=== PATIENT | female | born 1935 | race Caucasian/White ===

== ENCOUNTER 2016-10-17 11:29 | Inpatient (IN) | payer MEDICARE ==
[2016-10-17] VITALS (11 sets, daily range): BP systolic 102–131; BP diastolic 64–84
[~2016-10-17] VITALS: Ht 170.2 cm; Wt 78.6 kg
--- NOTE | ~2016-10-17 | PR ---
[place], [place] PROGRESS NOTE NAME: BERTHA MEJIA UNIT #: [id number] ROOM: 421 DOCTOR: JIMMY SCHAEFFER MD BIRTHDATE: [birth year] DOS: SUBJECTIVE: Ms. Mejia is sitting up in a chair, does not appear in distress. No cardiac complaint. No chest pain, no chest pressure, no symptomatic palpitation. The patient is requesting to go home. OBJECTIVE: VITAL SIGNS: Blood pressure 122/56, heart rate 56, respiratory rate of 18, temperature 98.6. NECK: Good upstroke, no bruit. HEART: S1, S2 with no rub. LUNGS: Increased air movement, but clear to auscultation. EXTREMITIES: Lower extremities, there is no edema, both under KILEY hose. LABORATORY DATA: White count 9.0, hemoglobin 13.2, potassium 4.0. GFR 34%. ASSESSMENT AND PLAN: History of presentation with atrial fibrillation with rapid ventricular response. The patient has history of diastolic congestive heart failure. The patient was cardioverted by Dr. Mcgarry and placed on amiodarone to maintain normal sinus rhythm in view of the slight drop in ejection fraction, which was likely due to tachycardia-induced myopathy. Currently, the patient appeared to be completely asymptomatic. Heart rate is in acceptable range. For that, we will continue same medication. The patient can be discharged home this afternoon. Continue Xarelto for oral anticoagulation. The patient should be seen in our clinic here in [place] within a few weeks with Dr. Mcgarry. JIMMY SCHAEFFER MD CM:PNTRANS [id number] JIMMY SCHAEFFER MD 10/24/16 1133 interface
[~2016-10-17 11:29] MED LIST: ALDACTONE25 MG PO; ALLOPURINOL100 MG PO; ASPIRIN1 POW; ASPIRIN325 M2 PO; CARVEDILOL25 MG PO; CENTRUM MULTIV1 EACH PO; CLINDAMYCIN HCL PO; DIGOX0.125 MG PO; DILTIAZEM HYDR180 M2 PO; FISH OIL500 M2 PO; FUROSEMIDE20 MG PO; K-Dur 20MEQ20 MEQ PO; K-LOR 20MEQ20 ME1 PO; LASIX20 MG PO; LEVOTHYROXINE0.05 M1 PO; METFORMIN HCL500 MG PO; METOPROLOL SUCC25 M2 PO; NOVOLOG10 ML IV; NOVOLOG10 ML SQ; POTASSIUM CHLO20 ME4 PO; PRINIVIL5 M1 PO; SIMVASTATIN40 MG PO; SUPER EPA 2002000 MG PO; TOUJEO300 U/ML SC; VENTOLIN H0.09 MG/AC INH; XANAX0.25 MG PO; XARE15TA PO
[2016-10-17] MEDS ORDERED: LOPRESSOR50 M1 PO (11:39)
[2016-10-17] MEDS ORDERED: DIGOX0.125 MG PO (11:39)
[2016-10-17 12:18] LABS: BASO # 0.1 10*3/uL (0.0-0.1); BASO % 0.4 % (0.0-1.0); EOS % 0.2 % (1.0-4.0); HEMATOCRIT 44.2 % (37.0-47.0); HEMOGLOBIN 14.1 g/dl (12.0-16.0); LYMPH # 2.1 10*3/uL (1.3-4.4); LYMPH % 18.2 % (27.0-41.0); MEAN CELL VOLUME 97.4 fl (81.0-99.0); MEAN CORPUSCULAR HGB 31.1 pg (27.0-31.0); MEAN CORPUSCULAR HGB CONC 31.9 g/dl (33.0-37.0); MEAN PLATELET VOLUME 11.8 fl (9.6-12.3); MONO # 1.4 10*3/uL (0.1-1.0); MONO % 12.7 % (3.0-9.0); NEUT # 7.8 10*3/uL (2.3-7.9); NEUT % 68.1 % (47.0-73.0); PLATELET COUNT AUTOMATED 221 10*3/uL (130-400); RED BLOOD COUNT 4.54 10*6/uL (4.10-5.10); WHITE BLOOD COUNT 11.4 10*3/uL (4.8-10.8)
[2016-10-17 12:29] LABS: INTERNATIONAL NORM RATIO 1.4 (2.0-3.5); PROTHROMBIN TIME 14.9 SECONDS (9.0-12.4)
[2016-10-17 12:38] LABS: ALBUMIN 3.2 gm/dl (3.1-4.5); BILIRUBIN, TOTAL 1.1 mg/dl (0.2-1.0); POTASSIUM 4.6 mmol/L (3.5-5.1); TOTAL PROTEIN 7.2 gm/dL (6.4-8.2)
[2016-10-17 12:40] LABS: CKMB 3.6 ng/ml (0.5-3.6)
[2016-10-17 12:43] LABS: TROPONIN I 0.122 ng/ml (<0.045)
[2016-10-17 14:15] LABS: LA>2 REFLEX 2 HR DRAW NOW
[2016-10-18] VITALS (9 sets, daily range): BP systolic 102–122; BP diastolic 49–78
[2016-10-18 05:53] LABS: BASO % 0.1 % (0.0-1.0); HEMATOCRIT 40.6 % (37.0-47.0); LYMPH # 0.6 10*3/uL (1.3-4.4); LYMPH % 7.9 % (27.0-41.0); MEAN CELL VOLUME 99.3 fl (81.0-99.0); MEAN CORPUSCULAR HGB 31.8 pg (27.0-31.0); MEAN PLATELET VOLUME 12.3 fl (9.6-12.3); MONO # 0.3 10*3/uL (0.1-1.0); MONO % 3.4 % (3.0-9.0); NEUT # 7.1 10*3/uL (2.3-7.9); NEUT % 88.2 % (47.0-73.0); PLATELET COUNT AUTOMATED 196 10*3/uL (130-400); RED BLOOD COUNT 4.09 10*6/uL (4.10-5.10); RED CELL DISTRI WIDTH 13.9 % (0-14.5)
[2016-10-18 06:07] LABS: ALBUMIN 2.6 gm/dl (3.1-4.5); BILIRUBIN, TOTAL 1.1 mg/dl (0.2-1.0); FREE T4 1.23 ng/dl (0.76-1.46); PHOSPHOROUS 3.4 mg/dL (2.5-4.9); POTASSIUM 4.7 mmol/L (3.5-5.1); TOTAL PROTEIN 6.3 gm/dL (6.4-8.2)
[2016-10-18 06:11] LABS: THYROID STIM HORMONE (HS) 1.13 uIU/ml (0.358-4.75)
[2016-10-18 06:16] LABS: INTERNATIONAL NORM RATIO 1.3 (2.0-3.5); PROTHROMBIN TIME 14.5 SECONDS (9.0-12.4)
[2016-10-19] VITALS: BP 120/74
[2016-10-19 06:38] LABS: BASO % 0.1 % (0.0-1.0); HEMATOCRIT 45.7 % (37.0-47.0); HEMOGLOBIN 14.6 g/dl (12.0-16.0); IG # 0.1 10*3/uL (0.0-0.1); LYMPH # 0.9 10*3/uL (1.3-4.4); LYMPH % 5.9 % (27.0-41.0); MEAN CELL VOLUME 98.7 fl (81.0-99.0); MEAN CORPUSCULAR HGB 31.5 pg (27.0-31.0); MEAN CORPUSCULAR HGB CONC 31.9 g/dl (33.0-37.0); MEAN PLATELET VOLUME 12.1 fl (9.6-12.3); MONO # 0.7 10*3/uL (0.1-1.0); MONO % 4.4 % (3.0-9.0); NEUT # 13.2 10*3/uL (2.3-7.9); NEUT % 88.9 % (47.0-73.0); PLATELET COUNT AUTOMATED 213 10*3/uL (130-400); RED BLOOD COUNT 4.63 10*6/uL (4.10-5.10); RED CELL DISTRI WIDTH 14.3 % (0-14.5); WHITE BLOOD COUNT 14.9 10*3/uL (4.8-10.8)
[2016-10-19 07:15] LABS: POTASSIUM 4.2 mmol/L (3.5-5.1)
[2016-10-19 07:29] LABS: DIGOXIN 1.34 ng/ml (0.8-2.0)
[2016-10-19 08:00] VITALS: BP 126/68
[2016-10-19 12:00] VITALS: BP 108/71
[2016-10-19 16:00] VITALS: BP 99/66
[2016-10-19 20:00] VITALS: BP 90/65
[2016-10-20] VITALS (9 sets, daily range): BP systolic 88–150; BP diastolic 46–94
[2016-10-21] VITALS: BP 114/59
[2016-10-21 06:26] LABS: BASO % 0.1 % (0.0-1.0); HEMATOCRIT 43.7 % (37.0-47.0); HEMOGLOBIN 14.1 g/dl (12.0-16.0); IG # 0.1 10*3/uL (0.0-0.1); LYMPH # 0.8 10*3/uL (1.3-4.4); LYMPH % 7.4 % (27.0-41.0); MEAN CORPUSCULAR HGB 31.6 pg (27.0-31.0); MEAN CORPUSCULAR HGB CONC 32.3 g/dl (33.0-37.0); MEAN PLATELET VOLUME 12.4 fl (9.6-12.3); MONO # 0.7 10*3/uL (0.1-1.0); MONO % 6.6 % (3.0-9.0); NEUT # 9.3 10*3/uL (2.3-7.9); NEUT % 85.4 % (47.0-73.0); PLATELET COUNT AUTOMATED 255 10*3/uL (130-400); RED BLOOD COUNT 4.46 10*6/uL (4.10-5.10); RED CELL DISTRI WIDTH 14.5 % (0-14.5); WHITE BLOOD COUNT 10.9 10*3/uL (4.8-10.8)
[2016-10-21 06:53] LABS: POTASSIUM 4.6 mmol/L (3.5-5.1)
[2016-10-21 06:59] LABS: THYROID STIM HORMONE (HS) 1.16 uIU/ml (0.358-4.75)
[2016-10-21 08:00] VITALS: BP 119/50
[2016-10-21 12:00] VITALS: BP 122/62
[2016-10-21 16:00] VITALS: BP 102/42
[2016-10-21 20:00] VITALS: BP 120/65
[2016-10-22] VITALS: BP 135/60
[2016-10-22 07:13] LABS: HEMATOCRIT 43.3 % (37.0-47.0); HEMOGLOBIN 13.9 g/dl (12.0-16.0); LYMPH # 0.9 10*3/uL (1.3-4.4); LYMPH % 6.9 % (27.0-41.0); MEAN CELL VOLUME 97.1 fl (81.0-99.0); MEAN CORPUSCULAR HGB 31.2 pg (27.0-31.0); MEAN CORPUSCULAR HGB CONC 32.1 g/dl (33.0-37.0); MEAN PLATELET VOLUME 11.5 fl (9.6-12.3); MONO # 1.4 10*3/uL (0.1-1.0); MONO % 10.8 % (3.0-9.0); NEUT # 10.3 10*3/uL (2.3-7.9); PLATELET COUNT AUTOMATED 257 10*3/uL (130-400); RED BLOOD COUNT 4.46 10*6/uL (4.10-5.10); RED CELL DISTRI WIDTH 14.2 % (0-14.5); WHITE BLOOD COUNT 12.5 10*3/uL (4.8-10.8)
[2016-10-22 07:42] LABS: MAGNESIUM 2.8 mg/dL (1.5-2.1); PHOSPHOROUS 4.5 mg/dL (2.5-4.9); POTASSIUM 4.5 mmol/L (3.5-5.1)
[2016-10-22 08:00] VITALS: BP 111/40
[2016-10-22 12:00] VITALS: BP 117/52
[2016-10-22 16:00] VITALS: BP 118/43
[2016-10-22 20:00] VITALS: BP 120/60
[2016-10-23] VITALS: BP 122/67
[2016-10-23 04:00] VITALS: BP 107/68
[2016-10-23 05:53] LABS: HEMATOCRIT 44.8 % (37.0-47.0); HEMOGLOBIN 14.3 g/dl (12.0-16.0); MEAN CELL VOLUME 98.5 fl (81.0-99.0); MEAN CORPUSCULAR HGB 31.4 pg (27.0-31.0); MEAN CORPUSCULAR HGB CONC 31.9 g/dl (33.0-37.0); MEAN PLATELET VOLUME 11.7 fl (9.6-12.3); PLATELET COUNT AUTOMATED 242 10*3/uL (130-400); RED BLOOD COUNT 4.55 10*6/uL (4.10-5.10); RED CELL DISTRI WIDTH 14.3 % (0-14.5); WHITE BLOOD COUNT 12.8 10*3/uL (4.8-10.8)
[2016-10-23 05:57] LABS: POTASSIUM 4.3 mmol/L (3.5-5.1)
[2016-10-23 06:00] LABS: INTERNATIONAL NORM RATIO 1.4 (2.0-3.5); PROTHROMBIN TIME 14.6 SECONDS (9.0-12.4)
[2016-10-23 06:55] LABS: EOSINOPHIL # 0.1 10*3/uL (0-0.4); EOSINOPHILS 1 % (1-4); LYMPHOCYTE # 2.3 10*3/uL (1.3-4.4); MONOCYTE # 0.9 10*3/uL (0.1-1.0); NEUTROPHIL # 9.5 10*3/uL (2.3-7.9); NEUTROPHILS 74 % (47-73); PLATELET SUFFICIENCY NORMAL (NORMAL); TOTAL CELLS COUNTED 100 #CELLS
[2016-10-23 08:00] VITALS: BP 117/57
[2016-10-23 12:00] VITALS: BP 124/52
[2016-10-23 16:00] VITALS: BP 118/58
[2016-10-23 20:00] VITALS: BP 100/65
[2016-10-24] VITALS: BP 118/47
[2016-10-24 06:15] LABS: BASO % 0.2 % (0.0-1.0); EOS # 0.2 10*3/uL (0.0-0.4); EOS % 2.3 % (1.0-4.0); HEMATOCRIT 39.8 % (37.0-47.0); HEMOGLOBIN 13.2 g/dl (12.0-16.0); LYMPH % 22.1 % (27.0-41.0); MEAN CELL VOLUME 96.4 fl (81.0-99.0); MEAN CORPUSCULAR HGB CONC 33.2 g/dl (33.0-37.0); MEAN PLATELET VOLUME 11.4 fl (9.6-12.3); MONO # 1.2 10*3/uL (0.1-1.0); MONO % 13.8 % (3.0-9.0); NEUT # 5.5 10*3/uL (2.3-7.9); NEUT % 61.3 % (47.0-73.0); PLATELET COUNT AUTOMATED 207 10*3/uL (130-400); RED BLOOD COUNT 4.13 10*6/uL (4.10-5.10); RED CELL DISTRI WIDTH 14.1 % (0-14.5)
[2016-10-24 08:00] VITALS: BP 122/56
[2016-10-24 12:00] VITALS: BP 132/62
[2016-10-24] MEDS ORDERED: SIMVASTATIN20 MG PO (12:41)
[2016-10-24] MEDS ORDERED: PACERONE200 MG PO (12:41)
== END 2016-10-24 14:42 | disposition home or self-care (01) | DRG 291 ==
LOC: ED 11:29 → EDHOLD 14:03 → 4E 14:03 → EDHOLD 14:27 → ICCU 14:32 → 4E 10-18 13:44
PROVIDERS: Family Medicine; Internal Medicine; Internal Medicine Cardiovascular Disease; Student in an Organized Health Care Education/Training Program
PROC: 5A2204Z Restoration of Cardiac Rhythm, Single (ICD-10-PCS; principal; 2016-10-20)
PROC: 5A09357 Assistance with Respiratory Ventilation, Less than 24 Consecutive Hours, Continuous Positive Airway Pressure (ICD-10-PCS; 2016-10-22)
DX: I13.0 Hypertensive heart and chronic kidney disease with heart failure and stage 1 through stage 4 chronic kidney disease, or unspecified chronic kidney disease (principal); J15.6 Pneumonia due to other Gram-negative bacteria; N17.0 Acute kidney failure with tubular necrosis; E43 Unspecified severe protein-calorie malnutrition; I48.0 Paroxysmal atrial fibrillation; J44.0 Chronic obstructive pulmonary disease with (acute) lower respiratory infection; E11.65 Type 2 diabetes mellitus with hyperglycemia; E11.51 Type 2 diabetes mellitus with diabetic peripheral angiopathy without gangrene; I50.43 Acute on chronic combined systolic (congestive) and diastolic (congestive) heart failure; N18.3 Chronic kidney disease, stage 3 (moderate); F41.9 Anxiety disorder, unspecified; M19.90 Unspecified osteoarthritis, unspecified site; D72.821 Monocytosis (symptomatic); M10.9 Gout, unspecified; E03.9 Hypothyroidism, unspecified; E78.2 Mixed hyperlipidemia; J44.9 Chronic obstructive pulmonary disease, unspecified; Z68.25 Body mass index [BMI] 25.0-25.9, adult; Z79.4 Long term (current) use of insulin; Z88.1 Allergy status to other antibiotic agents; Z88.0 Allergy status to penicillin; Z88.2 Allergy status to sulfonamides; Z79.899 Other long term (current) drug therapy; Z87.440 Personal history of urinary (tract) infections; Z87.891 Personal history of nicotine dependence; Z82.49 Family history of ischemic heart disease and other diseases of the circulatory system

== ENCOUNTER 2018-03-04 14:41 | Inpatient (IN) | payer OTHER, MEDICARE ==
[2018-03-04] VITALS (7 sets, daily range): BP systolic 99–136; BP diastolic 30–113
[~2018-03-04] VITALS: Ht 170.1 cm; Wt 90.0 kg
--- NOTE | ~2018-03-04 | EKG ---
[place], [place] ELECTROCARDIOGRAM REPORT NAME: BERTHA MEJIA UNIT #: [id number] ROOM: [facility] DOCTOR: AMALIA DRAFT REPORT BIRTHDATE: [birth year] [facility] Test Date: 2018-03-04 Test Time: 14:59:14 Pat Name: BERTHA MEJIA Department: Room: [facility] Gender: F [employer] Consultant: ROYAL : 1935 Requested By: JOAN SNOW Order Number: [id number] Reading MD: Tai Mcgarry MD Measurements Intervals [place] Rate: 38 P: MS: QRS: -74 QRSD: 156 T: 122 QT: 585 QTc: 466 Interpretive Statements Junctional rhythm LBBB Compared to ECG 11/06/2017 13:32:41 Junctional rhythm now present Sinus rhythm no longer present Electronically Signed On 03-04-2018 19:50:20 PST by Tai Mcgarry MD CM:EKGRPT:ELECTROCARDIOGRAM REPORT 1459 1950 JOAN TRIMBLE DRAFT REPORT JOAN SNOW DO
--- NOTE | ~2018-03-04 | PR ---
[place], [place] PROGRESS NOTE NAME: BERTHA MEJIA UNIT #: [id number] ROOM: 506 DOCTOR: MILAGRO DOMINGUEZ MD BIRTHDATE: [birth year] DOS: 03/06/2018 SUBJECTIVE: The patient was seen at her bedside today, 03/06/2018, for followup of her acute renal insufficiency and bradycardia. She is feeling better today. Her heart rate is now around 60. Renal functions have improved and she denies any lightheadedness, nausea or weakness. PHYSICAL EXAMINATION: VITAL SIGNS: Her pulse is 60 and regular, blood pressure is 94/48. She is afebrile. NECK: Supple. She has no jugular distention or hepatojugular reflux. Carotids are full. LUNGS: Respirations are unlabored. Her chest is clear. HEART: Has a regular rhythm. She has an S4 gallop. ABDOMEN: Soft and normally active. EXTREMITIES: Showed no edema. LABORATORY DATA: Hemoglobin is 11.9, white count 8300, platelet count 192,000. Sodium is 143, potassium 4.7, BUN 60, creatinine 1.91. Please note that on admission her BUN was 91 and creatinine was 3.77. IMPRESSION: 1. Acute renal failure with hyperkalemia, most likely due to multiple medications including lisinopril, spironolactone and torsemide. 2. Hyperkalemia -- resolved. 3. History of nonischemic cardiomyopathy. 4. Paroxysmal atrial fibrillation. The patient currently is in sinus rhythm. 5. History of hypertension. 6. History of hyperlipidemia. PLAN: I agree with moving her out of the intensive care unit and increasing her activities. I would continue to withhold digoxin, spironolactone and lisinopril. if needed for blood pressure, we could use hydralazine and nitrates. Now we will continue to monitor in the hospital and I thank the hospitalist physicians for asking our advice regarding her care. [place], [place] PROGRESS NOTE NAME: BERTHA MEJIA UNIT #: [id number] ROOM: 506 DOCTOR: MILAGRO DOMINGUEZ MD BIRTHDATE: [birth year] MILAGRO DOMINGUEZ MD CM:PNTRANS [id number] MILAGRO DOMINGUEZ MD 03/06/18 1902 interface
--- NOTE | ~2018-03-04 | CON ---
[place], [place] REPORT OF CONSULTATION NAME: BERTHA MEJIA UNIT #: [id number] ROOM: [facility] DOCTOR: MILAGRO DOMINGUEZ MD BIRTHDATE: [birth year] DOS: 03/05/2018 REASON FOR CONSULTATION: Weakness, bradycardia, and acute renal failure. HISTORY OF PRESENT ILLNESS: The patient is an 82-year-old woman who does have multiple medical problems including a nonischemic cardiomyopathy. Her most recent echocardiogram on 11/08/2017 showed normal left ventricular size with global hypokinesis, moderate concentric left ventricular hypertrophy and ejection fraction between 35 and 40% with stage 2 diastolic relaxation abnormalities. She does have a chronic left bundle-branch block, essential hypertension, paroxysmal atrial fibrillation, and obstructive sleep apnea. She has a difficult time tolerating CPAP. Cardiac catheterization 09/23/2015 showed no coronary artery disease with an ejection fraction of 40%. She was seen yesterday by ____, his normal director it project who noted that she was dyspneic and weak. He recommended that she try to see a photoradio operator to help her with her obstructive sleep apnea. At the office of the photoradio operator, she fell in the bathroom and was sent to the Emergency Room. In the Emergency Room, her potassium was 6.8 with a pulse in the 30s and creatinine of 3.77. She was therefore admitted for further management. Since admission, her potassium has been treated and she has been given fluids. She does feel much better. Her heart rate has increased and is currently about 80. Her BUN and creatinine have fallen to 80 and 2.81 from admission values of 91 and 3.77. Potassium is now 4.8. PAST MEDICAL HISTORY: Includes: 1. Chronic obstructive pulmonary disease. 2. Obstructive sleep apnea. 3. Essential hypertension. 4. Left bundle branch block. 5. Paroxysmal atrial fibrillation. 6. Dilated nonischemic cardiomyopathy. 7. Cardiac catheterization 09/23/2015, normal left main, LAD, circumflex, and right coronary arteries. Ejection fraction of 40%. 8. Echocardiogram 11/08/2017, normal left ventricular size with global hypokinesis, ejection fraction 35-40%, stage 2 diastolic dysfunction. Left atrium severely dilated. Mitral annular calcification with trivial mitral insufficiency. Tricuspid insufficiency, moderate in degree with right ventricular systolic pressure greater than 60 mmHg indicating severe pulmonary hypertension. 9. Type 2 diabetes mellitus. 10. History of tonsillectomy, hernia repair, and partial pneumonectomy. MEDICATIONS: Prior to admission, Ipratropium bromide 2 sprays q. 12 hours, allopurinol 100 mg daily, amiodarone 200 mg b.i.d., digoxin 125 mcg daily, levothyroxine 25 mcg daily, lisinopril 5 mg daily, metoprolol 25 mg daily, multivitamin daily, omega 3 fatty acids 1000 mg b.i.d., potassium 20 mEq daily, rivaroxaban 15 mg with her evening meal, simvastatin 20 mg at bedtime, spironolactone 25 mg daily, torsemide 20 mg daily, insulin per sliding scale and glargine insulin 25 units subcutaneously daily. [place], [place] REPORT OF CONSULTATION NAME: BERTHA MEJIA UNIT #: [id number] ROOM: [facility] DOCTOR: MILAGRO DOMINGUEZ MD BIRTHDATE: [birth year] ALLERGIES: THE PATIENT LISTS ALLERGIES TO PENICILLIN, SULFA, AND ERYTHROMYCIN. REVIEW OF SYSTEMS: The patient denies diplopia or loss of vision. She states that she has been generally weak for a few weeks. She denies nausea or vomiting. She denies fevers, chills or sweats. She denies orthopnea or PND. She does feel generally weak, but denies syncope. She denies focal weakness. She denies hemoptysis or hematemesis. She denies blood in her stools or urine. She denies peripheral edema. She denies heat or cold intolerance. She denies polyuria or polydipsia. She denies any skin rashes. Remainder of the review of systems is negative except as noted above. SOCIAL HISTORY: The patient was a smoker, but quit some time ago. She does not consume alcohol or illicit drugs. FAMILY HISTORY: Her parents both in their 90s from heart disease. PHYSICAL EXAMINATION: GENERAL: The patient is an elderly white female who is awake, alert, and oriented. VITAL SIGNS: Pulse is 80 and regular, blood pressure is 100/46. She is afebrile. HEENT: Normocephalic, atraumatic. Extraocular muscles are intact. Sclerae are clear. Pupils equal, round and reactive to light. The oral mucosa is moist. Tongue is midline. NECK: Supple. She has no jugular distention. Carotids are full. There are no bruits. She has no neck or supraclavicular masses, no thyromegaly. LUNGS: Respirations are unlabored. Her chest has decreased breath sounds at the bases, but is otherwise clear. She had no wheezes or rales. She had no presacral edema or chest wall tenderness. CARDIOVASCULAR: Her heart had a regular rhythm. She had a soft S4 gallop, but no S3. The PMI was not displaced. There is no precordial heave, lift or thrill. ABDOMEN: Soft and normally active without masses, organomegaly, or bruits. EXTREMITIES: Showed no edema. Peripheral pulses are diminished, but palpable in the feet. LABORATORY DATA: Her electrocardiogram showed a left bundle branch block. On admission, she did have marked sinus bradycardia with junctional escape. She now appears to be in a sinus rhythm. IMPRESSION: 1. Acute renal failure with hyperkalemia, most likely due to multiple medications including lisinopril, spironolactone, and torsemide. 2. Hyperkalemia. 3. History of nonischemic cardiomyopathy. 4. Paroxysmal atrial fibrillation, currently in sinus rhythm. 5. History of hypertension. 6. History of hyperlipidemia. [place], [place] REPORT OF CONSULTATION NAME: BERTHA MEJIA UNIT #: [id number] ROOM: [facility] DOCTOR: MILAGRO DOMINGUEZ MD BIRTHDATE: [birth year] PLAN: I would resume her amiodarone, but in a smaller dose. Discontinue digoxin, discontinue spironolactone or lisinopril, and use hydralazine and nitrates as needed for her left ventricular dysfunction. We will continue to monitor her in the hospital. I thank the hospitalist physicians for asking our advice regarding her care. MILAGRO DOMINGUEZ MD CM:CONSTR:REPORT OF CONSULTATION 1429 03/05/18 2137 interface
--- NOTE | ~2018-03-04 | CON ---
[place], [place] REPORT OF CONSULTATION NAME: BERTHA MEJIA UNIT #: [id number] ROOM: 506 DOCTOR: CONRAD ZUNIGA DO BIRTHDATE: [birth year] DOS: 03/06/2018 REASON FOR CONSULTATION: Acute kidney injury, hyperkalemia, chronic kidney disease. HISTORY OF PRESENT ILLNESS: A pleasant 82-year-old female who carries a prior history of nonischemic cardiomyopathy with a past echocardiogram on 11/2017 showing moderate concentric LVH with an EF of 40%, stage 2 diastolic dysfunction. She has a chronic left bundle-branch block as well, history of paroxysmal atrial fibrillation, obstructive sleep apnea, hypertension, COPD, type 2 diabetes mellitus of only three years' duration with no reported complication that being neuropathy. She has what appears to be underlying chronic kidney disease that she is unaware of this diagnosis. Reviewing labs, I note multiple creatinines in the 1.8 to 2.0 range for the past year with a creatinine of ____ range, extending back to 2015. I do not see where she has undergone any previous evaluation for underlying CKD, but past urines have been generally bland. She did undergo a renal ultrasound during this admission, which showed symmetric kidneys of the right measuring 9.1 with measuring 9.0 cm in size for hydronephrosis or masses appreciated. A spot urine for protein and creatinine was obtained during this admission with a value of 0.14 obtained. She notes her diabetes has been generally under good control as her hypertension. She denies exposure to any past NSAIDs. She initially presented institution on 03/04/2018 with weakness. She had been feeling "oozy" and lightheaded for several days. She is at the physician's office when she apparently fell to the side of the toilet and was unable to get up. She denied any cardiac symptoms in conjunction with the above. She generally has been feeling well other than her period above. No complaints since admission. No associated cardiac symptoms leading into remission or URI symptoms. No fevers, chills, rigors or diaphoresis. No anorexia, nausea, vomiting or diarrhea. States she has been voiding well and at baseline, but not she is frequently incontinent of urine. In the Emergency Room, she was noted to be bradycardic, heart rate in the 40s-50s. Stable and afebrile, otherwise. Noted to be hyperkalemic with a potassium of 6.8. Specimen was not hemolyzed. She was in acute kidney injury with a BUN and creatinine of 91 and 3.77. Chemistries on admission were otherwise unremarkable. Since admission, her most recent creatinine was from 11/15/2017 was 2.40 and 1.80 on 11/11/2017. She was given D50 and insulin along with Kayexalate in the Emergency Room and started on IV fluids, admitted to the ICU. Subsequent potassium was noted to be 6.0. Easing of the 30th at this time she has continued her IV fluids and is given additional dose of D50 and insulin. Follow up potassiums have steadily improved to 5.0 yesterday morning, repeat of 4.8 several hours later yesterday morning and then 4.7 as of today. Her renal function has shown steady improvement with a creatinine down to 1.91 as of today. Chemistries are otherwise all remained unremarkable. Since being admitted, she has been afebrile and overall hemodynamically stable. States she is feeling well. She notes that she has been maintaining a longstanding and stable dose of lisinopril. She apparently has been on a longstanding and stable dose of spironolactone 25 mg daily and has been taking the appearance of both torsemide 20 mg daily and furosemide 20 mg daily. This cannot be inadvertently confirmed, but she acknowledged using both of these medications. She has also been on a potassium supplement 10 mEq daily. [place], [place] REPORT OF CONSULTATION NAME: BERTHA MEJIA UNIT #: [id number] ROOM: 506 DOCTOR: CONRAD ZUNIGA DO BIRTHDATE: [birth year] She notes compliance with all of her medications that she has been taking all these as prescribed in a longstanding duration. She denies any changes in her baseline. MEDICATIONS: Denies use of NSAIDs and otherwise not been exposed to any potential nephrotoxic agents. She denies hematuria or frothy urine, symptoms of colic or passage of calculi, cough, hemoptysis, wheezing, abdominal pain, hematochezia or melena symptoms. PAST MEDICAL HISTORY: As above. ALLERGIES: Listed PENICILLIN AND SULFA. CURRENT MEDICATIONS: Amiodarone 200 mg daily, Lantus 25 units subcutaneously daily, Xarelto 50 mg daily, allopurinol 100 mg daily, levothyroxine 25 mcg daily, Zocor 20 mg daily and sliding scale insulin. SOCIAL HISTORY: She resides at home. FAMILY HISTORY: Noncontributory. REVIEW OF SYSTEMS: Please see HPI. A full 10-point review of systems was performed and obtained the above-noted measures, was unremarkable except as noted in HPI. PHYSICAL EXAMINATION: VITAL SIGNS: Blood pressure 135/84, pulse 90, respiration 20 and temperature is 98 degrees Fahrenheit. GENERAL APPEARANCE: An obese female, awake, alert, oriented x 3, no apparent distress. HEAD AND NECK: Conjunctivae are pink and moist. Oral mucosa is pink and moist. There is no carotid bruit or thyromegaly, adenopathy or JVD appreciated. LUNGS: Clear to auscultation and percussion. HEART: Regular without S4, S3 gallop, rub, murmur or heave currently appreciated. ABDOMEN: Soft, positive bowel sounds x 4, nontender, without CVA tenderness. No rebound, guarding or rigidity. No abdominal or flank bruits appreciated. Examination is grossly nonfocal. EXTREMITIES: No clubbing, cyanosis or edema. Pulses are +2 bilateral as dorsalis pedis. SKIN: Dry without rash, ulcers, lesions, or petechiae appreciated. LABORATORY DATA: Labs from today, WBC is 8.3, hemoglobin 10.9, hematocrit 35.0 and platelets are 192,000. Sodium 143, potassium 4.7, chloride 112, CO2 of 21, BUN of 60, creatinine 1.91, glucose of 116 and calcium is 8.1. IMPRESSIONS: 1. Acute kidney injury. This was resolved and is presumably prerenal in nature. I question this may have been due to overuse of diuretics with the patient taking torsemide and furosemide. Now, the pertinent etiology can be [place], [place] REPORT OF CONSULTATION NAME: BERTHA MEJIA UNIT #: [id number] ROOM: 506 DOCTOR: CONRAD ZUNIGA DO BIRTHDATE: [birth year] discovered prior to her hyperkalemia and this is occurring in the setting of acute kidney injury while on potassium supplementation, spironolactone and lisinopril, all of which have been held. 2. Chronic kidney disease with baseline as noted, unclear etiology. 3. Hypertension. Blood pressure is satisfactory control. RECOMMENDATIONS: Agree with current management. Follow intake and output as well as renal function and electrolytes closely. We will check serum free light chains along with SPEP, ____. Consider checking a UIEP. Further plans pending above. Thank you for allowing me to participate in the care of this patient. CONRAD ZUNIGA DO CM:CONSTR:REPORT OF CONSULTATION 11 03/06/18 2259 interface
--- NOTE | ~2018-03-04 | PR ---
[place], [place] PROGRESS NOTE NAME: BERTHA MEJIA UNIT #: [id number] ROOM: 506 DOCTOR: MILAGRO DOMINGUEZ MD BIRTHDATE: [birth year] DOS: 03/07/2018 CARDIOLOGY PROGRESS NOTE SUBJECTIVE: The patient was seen today, 03/07/2018, at her bedside. I also saw her walking in the bhagat. She feels much better and is anxious for discharge to home. PHYSICAL EXAMINATION: VITAL SIGNS: On exam today, her pulse is 56 and regular, blood pressure is 112/54. She is afebrile. NECK: Supple. She has no jugular distention. Carotids are full. LUNGS: Respirations are unlabored. Chest is clear. HEART: Has a regular rhythm with an S4 gallop, but no S3. ABDOMEN: Benign. EXTREMITIES: Showed no edema. LABORATORY DATA: Electrolytes have normalized. Her sodium is 143 with potassium of 4.5. BUN has decreased from 91 on admission to 41 today. Creatinine has decreased from 3.77 to 1.42. Her monitor shows sinus rhythm with a bundle-branch block. She does seem to be doing better since her hospitalization and since the readjustment of her medications. Currently, she is on amiodarone 200 mg daily, rivaroxaban 15 mg daily, allopurinol 100 mg daily, levothyroxine 25 mcg daily, simvastatin 20 mg at bedtime, DuoNeb 4 hours as needed, temazepam 15 mg at bedtime as needed, bisacodyl 10 mg per rectum or 5 mg p.o. daily as needed, acetaminophen as needed and insulin as prescribed. From my perspective, she could be discharged to home at any time. I thank the hospitalist physicians for asking our advice regarding her care. MILAGRO DOMINGUEZ MD CM:PNTRANS 1516 [id number] MILAGRO DOMINGUEZ MD 03/08/18240 interface
[~2018-03-04 14:41] MED LIST changes: +AMIODARONE HYD200 MG PO; +CENTRUM SILVER1 EACH PO; +FISH OIL CONC1000 M1 PO; +LOPRESSOR50 M1 PO; +PACERONE200 MG PO; +POTASSIUM CHLO20 ME3 PO; +SIMVASTATIN20 MG PO; +SYNTHROID25 MCG PO; +TORSEMIDE20 MG PO; +TOUJEO MAX300 UNIT/1 SQ
[2018-03-04 15:11] LABS: HEMATOCRIT 42.4 % (37.0-47.0); HEMOGLOBIN 13.8 g/dl (12.0-16.0); MEAN CELL VOLUME 99.5 fl (81.0-99.0); MEAN CORPUSCULAR HGB 32.4 pg (27.0-31.0); MEAN CORPUSCULAR HGB CONC 32.5 g/dl (33.0-37.0); MEAN PLATELET VOLUME 11.5 fl (9.6-12.3); PLATELET COUNT AUTOMATED 273 10*3/uL (130-400); RED BLOOD COUNT 4.26 10*6/uL (4.10-5.10); RED CELL DISTRI WIDTH 18.2 % (0-14.5); WHITE BLOOD COUNT 10.5 10*3/uL (4.8-10.8)
[2018-03-04 15:21] LABS: ACT PARTIAL THROMBO TIME 22.7 SECONDS (20.8-31.5)
[2018-03-04 15:26] LABS: ALBUMIN 3.3 gm/dl (3.1-4.5); CREATININE 3.77 mg/dL (0.55-1.02); TOTAL PROTEIN 7.2 gm/dL (6.4-8.2)
[2018-03-04 15:29] LABS: POTASSIUM 6.8 mmol/L (3.5-5.1)
[2018-03-04 15:30] LABS: TROPONIN I 0.064 ng/ml (<0.045)
[2018-03-04 15:36] LABS: PLATELET SUFFICIENCY NORMAL (NORMAL); TOTAL CELLS COUNTED 100 #CELLS
[2018-03-04] MEDS ORDERED: TYLENOL325 M1 PO (17:25)
[2018-03-04] MEDS ORDERED: DIGOXIN125 MCG PO (17:28)
[2018-03-04] MEDS ORDERED: CARDIZEM CD120 M2 PO (17:29)
[2018-03-04] MEDS ORDERED: NATURE'S BLEND F1 MG PO (17:30)
[2018-03-04] MEDS ORDERED: IPRATROPIUM BRO30 ML INH (17:33)
[2018-03-04] MEDS ORDERED: KLOR-CON M2020 ME1 PO (17:42)
[2018-03-04] MEDS ORDERED: TORSEMIDE20 MG PO (17:44)
[2018-03-04] MEDS ORDERED: LASIX40 MG PO (17:46)
[2018-03-04 20:14] LABS: CREATININE 3.34 mg/dL (0.55-1.02)
[2018-03-04 23:31] LABS: BILIRUBIN NEGATIVE (NEGATIVE); BLOOD NEGATIVE (NEGATIVE); CLARITY CLEAR (CLEAR); COLOR YELLOW (YELLOW); GLUCOSE NEGATIVE (NEGATIVE); KETONE NEGATIVE (NEGATIVE); LEUKO ESTERASE 1+ (NEGATIVE); NITRITE NEGATIVE (NEGATIVE); PH 5.5 (5.0-9.0); UROBILINOGEN 0.2 E.U./dl (0.2-1.0)
[2018-03-04 23:41] LABS: URINE CREATININE RANDOM 36.3 mg/dL
[2018-03-05] VITALS: BP 116/50
[2018-03-05 02:48] LABS: CREATININE 2.92 mg/dL (0.55-1.02)
[2018-03-05 04:00] VITALS: BP 112/60
[2018-03-05 05:59] LABS: CREATININE 2.81 mg/dL (0.55-1.02); FREE T4 0.79 ng/dl (0.76-1.46); PHOSPHOROUS 4.3 mg/dL (2.5-4.9); POTASSIUM 4.8 mmol/L (3.5-5.1)
[2018-03-05 06:01] LABS: BASO # 0.1 10*3/uL (0.0-0.1); BASO % 0.7 % (0.0-1.0); EOS # 0.3 10*3/uL (0.0-0.4); EOS % 3.8 % (1.0-4.0); HEMATOCRIT 38.9 % (37.0-47.0); HEMOGLOBIN 12.3 g/dl (12.0-16.0); LYMPH # 1.9 10*3/uL (1.3-4.4); LYMPH % 26.7 % (27.0-41.0); MEAN CELL VOLUME 100.5 fl (81.0-99.0); MEAN CORPUSCULAR HGB 31.8 pg (27.0-31.0); MEAN CORPUSCULAR HGB CONC 31.6 g/dl (33.0-37.0); MEAN PLATELET VOLUME 11.4 fl (9.6-12.3); MONO # 1.3 10*3/uL (0.1-1.0); MONO % 18.6 % (3.0-9.0); NEUT # 3.5 10*3/uL (2.3-7.9); NEUT % 49.8 % (47.0-73.0); PLATELET COUNT AUTOMATED 218 10*3/uL (130-400); RED BLOOD COUNT 3.87 10*6/uL (4.10-5.10); RED CELL DISTRI WIDTH 18.4 % (0-14.5)
[2018-03-05 06:06] LABS: THYROID STIM HORMONE (HS) 16.1 uIU/ml (0.358-4.75)
[2018-03-05 08:00] VITALS: BP 100/50
[2018-03-05 12:00] VITALS: BP 100/46
[2018-03-05 16:00] VITALS: BP 96/50
[2018-03-05 20:00] VITALS: BP 102/60
[2018-03-06] VITALS: BP 110/62
[2018-03-06 04:00] VITALS: BP 122/72
[2018-03-06 05:04] LABS: BASO # 0.1 10*3/uL (0.0-0.1); BASO % 0.6 % (0.0-1.0); EOS # 0.3 10*3/uL (0.0-0.4); EOS % 3.4 % (1.0-4.0); HEMOGLOBIN 10.9 g/dl (12.0-16.0); LYMPH # 1.6 10*3/uL (1.3-4.4); LYMPH % 18.9 % (27.0-41.0); MEAN CELL VOLUME 102.6 fl (81.0-99.0); MEAN CORPUSCULAR HGB CONC 31.1 g/dl (33.0-37.0); MEAN PLATELET VOLUME 10.9 fl (9.6-12.3); MONO # 1.4 10*3/uL (0.1-1.0); NEUT % 59.6 % (47.0-73.0); PLATELET COUNT AUTOMATED 192 10*3/uL (130-400); RED BLOOD COUNT 3.41 10*6/uL (4.10-5.10); RED CELL DISTRI WIDTH 18.2 % (0-14.5); WHITE BLOOD COUNT 8.3 10*3/uL (4.8-10.8)
[2018-03-06 05:24] LABS: CREATININE 1.91 mg/dL (0.55-1.02); POTASSIUM 4.7 mmol/L (3.5-5.1)
[2018-03-06 08:00] VITALS: BP 102/50
[2018-03-06 12:00] VITALS: BP 94/48
[2018-03-06 16:00] VITALS: BP 135/84
[2018-03-06 20:00] VITALS: BP 140/50
[2018-03-07] VITALS: BP 122/68
[2018-03-07 06:39] LABS: BASO % 0.4 % (0.0-1.0); EOS # 0.3 10*3/uL (0.0-0.4); EOS % 4.2 % (1.0-4.0); HEMATOCRIT 36.8 % (37.0-47.0); HEMOGLOBIN 11.6 g/dl (12.0-16.0); LYMPH # 1.4 10*3/uL (1.3-4.4); LYMPH % 20.4 % (27.0-41.0); MEAN CELL VOLUME 101.7 fl (81.0-99.0); MEAN CORPUSCULAR HGB CONC 31.5 g/dl (33.0-37.0); MEAN PLATELET VOLUME 11.4 fl (9.6-12.3); MONO # 0.9 10*3/uL (0.1-1.0); MONO % 13.5 % (3.0-9.0); NEUT # 4.2 10*3/uL (2.3-7.9); NEUT % 61.1 % (47.0-73.0); PLATELET COUNT AUTOMATED 215 10*3/uL (130-400); RED BLOOD COUNT 3.62 10*6/uL (4.10-5.10); RED CELL DISTRI WIDTH 17.9 % (0-14.5)
[2018-03-07 07:07] LABS: POTASSIUM 4.5 mmol/L (3.5-5.1)
[2018-03-07 07:13] LABS: CREATININE 1.42 mg/dL (0.55-1.02)
[2018-03-07 10:25] VITALS: BP 112/54
[2018-03-07 12:00] VITALS: BP 112/54
[2018-03-07] MEDS ORDERED: PACERONE200 MG PO (16:34)
[2018-03-07 17:39] VITALS: BP 123/65
[2018-03-08 14:05] LABS: A/G RATIO 1.1 (0.7-1.7); ALBUMIN 2.8 g/dL (2.9-4.4); ALPHA-1-GLOBULIN 0.2 g/dL (0.0-0.4); ALPHA-2-GLOBULIN 0.8 g/dL (0.4-1.0); BETA GLOBULIN 0.9 g/dL (0.7-1.3); GAMMA GLOBULIN 0.7 g/dL (0.4-1.8); GLOBULIN, TOTAL 2.5 g/dL (2.2-3.9); M-SPIKE Not Observed g/dL (Not Observed); TOTAL PROTEIN, SERUM 5.3 g/dL (6.0-8.5)
[2018-03-08 17:10] LABS: FREE KAPPA LIGHT CHAINS 25.8 mg/L (3.3-19.4); FREE LAMBDA LIGHT CHAINS 27.4 mg/L (5.7-26.3); KAPPA/LAMBDA RATIO 0.94 (0.26-1.65)
== END 2018-03-07 18:35 | disposition home or self-care (01) | DRG 640 ==
LOC: ED 14:41 → 5E 15:54 → ICCU 15:54 → EDHOLD 15:54 → ICCU 16:42 → 5E 03-06 14:57
PROVIDERS: Emergency Medicine; Internal Medicine; Internal Medicine Nephrology; Student in an Organized Health Care Education/Training Program
DX: E87.5 Hyperkalemia (principal); N17.0 Acute kidney failure with tubular necrosis; E44.0 Moderate protein-calorie malnutrition; I50.42 Chronic combined systolic (congestive) and diastolic (congestive) heart failure; I13.0 Hypertensive heart and chronic kidney disease with heart failure and stage 1 through stage 4 chronic kidney disease, or unspecified chronic kidney disease; I42.9 Cardiomyopathy, unspecified; R00.1 Bradycardia, unspecified; E87.2 Acidosis; E86.0 Dehydration; E03.9 Hypothyroidism, unspecified; M19.90 Unspecified osteoarthritis, unspecified site; F41.9 Anxiety disorder, unspecified; E78.2 Mixed hyperlipidemia; I48.0 Paroxysmal atrial fibrillation; E11.51 Type 2 diabetes mellitus with diabetic peripheral angiopathy without gangrene; I44.7 Left bundle-branch block, unspecified; G47.33 Obstructive sleep apnea (adult) (pediatric); Z66 Do not resuscitate; Z51.5 Encounter for palliative care; I27.20 Pulmonary hypertension, unspecified; M10.9 Gout, unspecified; J44.9 Chronic obstructive pulmonary disease, unspecified; J40 Bronchitis, not specified as acute or chronic; E11.22 Type 2 diabetes mellitus with diabetic chronic kidney disease; N18.3 Chronic kidney disease, stage 3 (moderate); R55 Syncope and collapse; R74.8 Abnormal levels of other serum enzymes; E83.41 Hypermagnesemia; E11.65 Type 2 diabetes mellitus with hyperglycemia; Z79.4 Long term (current) use of insulin; Z68.30 Body mass index [BMI] 30.0-30.9, adult; Z88.1 Allergy status to other antibiotic agents; Z88.0 Allergy status to penicillin; Z88.2 Allergy status to sulfonamides; Z87.440 Personal history of urinary (tract) infections; Z90.2 Acquired absence of lung [part of]; Z87.891 Personal history of nicotine dependence; Z82.49 Family history of ischemic heart disease and other diseases of the circulatory system; Z79.899 Other long term (current) drug therapy; Y92.89 Other specified places as the place of occurrence of the external cause

== ENCOUNTER → 2018-04-01 | Outpatient (CLI) | payer OTHER, MEDICARE ==
[~2018-04-01] MED LIST changes: +Atrovent 0.03%30 ML NAS; +CARDIZEM CD120 M2 PO; +DIGOXIN125 MCG PO; +FUROSEMIDE20 M1 PO; +Humalog SQ; +IPRATROPIUM BRO30 ML INH; +Ipratropium Brom3 ML NEB; +KLOR-CON M2020 ME1 PO; +LASIX40 MG PO; +LEVAQUIN500 M2 PO; +LEVAQUIN750 M1 PO; +LEVO-T25 MCG PO; +LEVOTHYROXINE75 MCG PO; +MUCINEX ER600 MG PO; +NATURE'S BLEND F1 MG PO; +OXYGEN NAS; +Synthroid,Levo50 MCG PO; +TOPROL XL25 MG PO; +TOUJEO SOL300 UNIT/1 SQ; +TYLENOL325 M1 PO
== END | disposition home or self-care (01) ==
DX: M23.8X1 Other internal derangements of right knee (principal)

== ENCOUNTER → 2018-04-08 | Outpatient (CLI) | payer OTHER, MEDICARE ==
[~2018-04-08] MED LIST changes: -LEVAQUIN750 M1 PO; -LEVOTHYROXINE75 MCG PO
[2018-04-08 16:01] LABS: BILIRUBIN NEGATIVE (NEGATIVE); BLOOD NEGATIVE (NEGATIVE); CLARITY CLEAR (CLEAR); COLOR YELLOW (YELLOW); GLUCOSE NEGATIVE (NEGATIVE); KETONE NEGATIVE (NEGATIVE); LEUKO ESTERASE 1+ (NEGATIVE); NITRITE NEGATIVE (NEGATIVE); PH 5.5 (5.0-9.0); SPECIFIC GRAVITY 1.025 (1.005-1.030); UROBILINOGEN 0.2 E.U./dl (0.2-1.0)
[2018-04-08 16:22] LABS: ALBUMIN 3.1 gm/dl (3.1-4.5); CREATININE 1.47 mg/dL (0.55-1.02); PHOSPHOROUS 2.7 mg/dL (2.5-4.9); POTASSIUM 4.6 mmol/L (3.5-5.1)
[2018-04-08 16:23] LABS: BACTERIA 1+; RBC 0-2 rbc/hpf (0-2)
== END | disposition home or self-care (01) ==
LOC: LAB 15:24
PROVIDERS: Internal Medicine Nephrology
DX: N18.3 Chronic kidney disease, stage 3 (moderate) (principal); Z79.899 Other long term (current) drug therapy

== ENCOUNTER 2018-04-10 12:32 | Inpatient (IN) | payer OTHER, MEDICARE ==
[~2018-04-10] VITALS: Ht 170.1 cm
--- NOTE | ~2018-04-10 | EKG ---
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
--- NOTE | ~2018-04-10 | EKG ---
[place], [place] ELECTROCARDIOGRAM REPORT NAME: BERTHA MEJIA UNIT #: [id number] ROOM: 506 DOCTOR: AMALIA DRAFT REPORT BIRTHDATE: [birth year] [facility] Test Date: 2018-04-10 Test Time: 14:32:29 Pat Name: BERTHA MEJIA Department: Room: 506 Gender: F Tapper Helper: Alejandrina Mauricio : 1935 Requested By: ERIKA STEVENS Order Number: [id number] Reading MD: Tai Mcgarry MD Measurements Intervals [place] Rate: 59 P: MA: QRS: -62 QRSD: 156 T: 123 QT: 526 QTc: 522 Interpretive Statements Sinus rhythm Left bundle branch block No change from earlier ECG this date Electronically Signed On 04-11-2018 14:36:37 PST by Tai Mcgarry MD CM:EKGRPT:ELECTROCARDIOGRAM REPORT 1432 1436 ERIKA HOLLAND DRAFT REPORT ERIKA STEVENS
--- NOTE | ~2018-04-10 | PR ---
[place], [place] PROGRESS NOTE NAME: BERTHA MEJIA UNIT #: [id number] ROOM: 506 DOCTOR: MILAGRO DOMINGUEZ MD BIRTHDATE: [birth year] DOS: 04/12/2018 CARDIOLOGY PROGRESS NOTE SUBJECTIVE: The patient was seen at her bedside today, 04/12/2018 for followup of her paroxysmal atrial fibrillation, dilated nonischemic cardiomyopathy and a history of acute renal insufficiency with chronic systolic congestive heart failure. The patient presented on this occasion with significant fluid overload. Since her last hospitalization, diuretics have been withheld because of her acute renal failure. She is responding nicely to diuresis at this time and has about a negative 1500 mL fluid balance. She is breathing easily and has ambulated without difficulty. Her creatinine has risen from 1.42-1.50 and BUN rupert from 32-40. PHYSICAL EXAMINATION: VITAL SIGNS: Her pulse is 56 and regular, blood pressure is 126/43. She is afebrile. She weighs 91.2 kilograms. NECK: Supple. She has no jugular distention. Carotids are full. LUNGS: Respirations are unlabored. Chest is clear. HEART: Has a regular rhythm with an S4 gallop. ABDOMEN: Benign. EXTREMITIES: Showed no edema. PLAN: We will continue to observe her renal functions for one more day. If they are stable on 04/13/2018, she probably could be discharged on her current oral diuretic therapy. We thank the hospitalist physicians for asking our advice regarding her care. MILAGRO DOMINGUEZ MD CM:PNTRANS [id number] MILAGRO DOMINGUEZ MD 04/15/18 1219 interface
--- NOTE | ~2018-04-10 | EKG ---
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
--- NOTE | ~2018-04-10 | CON ---
[place], [place] REPORT OF CONSULTATION NAME: BERTHA MEJIA UNIT #: [id number] ROOM: 506 DOCTOR: MILAGRO DOMINGUEZ MD BIRTHDATE: [birth year] DOS: 04/10/2018 REASON FOR CONSULTATION: Dyspnea and fluid retention. HISTORY OF PRESENT ILLNESS: The patient is an 82-year-old woman who does have a long history of a dilated, nonischemic cardiomyopathy. Her most recent echocardiogram in November 2017 showed normal left ventricular size with global hypokinesis, moderate concentric left ventricular hypertrophy and an ejection fraction between 35 and 40% with stage 2 diastolic relaxation abnormalities. She does have a chronic left bundle-branch block, essential hypertension, paroxysmal atrial fibrillation and obstructive sleep apnea. She has not been able to tolerate CPAP. A catheterization done 09/23/2015 showed no coronary artery disease and an ejection fraction of 40%. On 03/05/2018, she was seen at the office of her round boner for evaluation of her sleep apnea. At his office, she fell and was sent to the Emergency Room. She was noted to have a potassium of 6.8 with a creatinine of 3.77. Her pulse was in the 30 range. She was admitted for further management of acute renal failure and hyperkalemia. With treatment of her potassium, her heart rate improved and she felt considerably better. Her medications were readjusted to avoid potassium increasing medications or medications that would affect kidney function. Specifically, spironolactone and lisinopril were discontinued. We also discontinued digoxin and loop diuretics. At the time of her admission to the hospital on that occasion, her creatinine was 3.77 with a baseline creatinine of about 1.5. By the time of her discharge, her creatinine had fallen to 1.42. The patient states that she has felt reasonably well, but over the last few weeks has noticed that she is holding on to water. Her legs are becoming more swollen and she has become more dyspneic. She believes she has gained about 15 pounds in the last month and therefore came to the Emergency Room for further assessment. PAST MEDICAL HISTORY: Includes: 1. Chronic obstructive pulmonary disease. 2. Obstructive sleep apnea. 3. Essential hypertension. 4. Left bundle branch block. 5. Paroxysmal atrial fibrillation. 6. Dilated nonischemic cardiomyopathy. 7. Cardiac catheterization, 09/23/2015, normal left main, LAD, circumflex, and right coronary arteries. Ejection fraction 40%. 8. Echocardiogram, 11/08/2017, normal left ventricular size with global hypokinesis, ejection fraction 35-40%, stage 2 diastolic dysfunction, left atrium severely enlarged, mitral annular calcification with trivial mitral insufficiency, tricuspid insufficiency moderate with right ventricular systolic pressure greater than 60 mmHg consistent with severe pulmonary hypertension. 9. Type 2 diabetes mellitus. 10. History of tonsillectomy, hernia repair and partial pneumonectomy. [place], [place] REPORT OF CONSULTATION NAME: BERTHA MEJIA UNIT #: [id number] ROOM: [facility] DOCTOR: MILAGRO DOMINGUEZ MD BIRTHDATE: [birth year] MEDICATIONS: Prior to admission, Atrovent by inhaler 2 sprays q. 12 hours, allopurinol 100 mg daily, amiodarone 200 mg daily, levothyroxine 25 mcg daily, multivitamin with lycopene and Lutein one tablet daily, omega 3 fish oil 1000 mg b.i.d., rivaroxaban 15 mg daily with the evening meal, simvastatin 20 mg at bedtime, NovoLog insulin by sliding scale and glargine insulin 25 units subQ daily. ALLERGIES: The patient lists allergies to PENICILLIN, SULFA DRUGS, AND ERYTHROMYCIN. REVIEW OF SYSTEMS: The patient denies diplopia or loss of vision. She has developed worsening dyspnea, but otherwise feels well and denies chest pain or palpitations. She denies lightheadedness or syncope. She denies any focal weakness. She denies nausea or vomiting. She denies fevers, chills or sweats. She has gained about 15 pounds in the last month. She has noted increased swelling and dyspnea with minor exertion. She denies hemoptysis or hematemesis. She denies blood in her stools or urine. She denies any skin rashes. She has had swelling in her ankles. She denies heat or cold intolerance. She denies polyuria or polydipsia. The remainder of the review of systems is negative except as noted above. FAMILY HISTORY: Both parents in their 90s from heart disease. SOCIAL HISTORY: The patient was a smoker, but quit many years ago. She does not consume alcohol or illicit drugs. PHYSICAL EXAMINATION: GENERAL: The patient is an elderly white female who is awake, alert and oriented. VITAL SIGNS: Pulse is 63 and regular, blood pressure is 103/44. She is afebrile. She weighs 91.3 kg and has a body mass index of 31.5. HEENT: Normocephalic and atraumatic. Extraocular muscles are intact. Sclerae are clear. Pupils are equal, round and react to light. The oral mucosa is moist. Tongue is midline. NECK: Supple. She has mild jugular distention with hepatojugular reflux when sitting at a 45 degree angle. Carotids are full. There are no bruits. She has no neck or supraclavicular masses and no thyromegaly. LUNGS: Respirations are unlabored. She does have a few rales at the bases bilaterally with decreased breath sounds and dullness at the bases bilaterally. She had no presacral edema or chest wall tenderness. CARDIOVASCULAR: Her heart had a regular rhythm. She has a fourth heart sound, but no third heart sound. The PMI could not be felt. There was no precordial heave, lift or thrill. ABDOMEN: Soft and normally active without masses, organomegaly or bruits. EXTREMITIES: Showed 2+ edema to the mid calf bilaterally. Peripheral pulses were diminished, but palpable. Electrocardiogram showed sinus rhythm with a left bundle branch block. [place], [place] REPORT OF CONSULTATION NAME: BERTHA MEJIA UNIT #: [id number] ROOM: [facility] DOCTOR: MILAGRO DOMINGUEZ MD BIRTHDATE: [birth year] LABORATORY DATA: Hemoglobin is 12.5, hematocrit 40.1, there are 9000 white cells and 312,000 platelets. INR is 1.1. Sodium is 142, potassium 4.4, chloride 106, CO2 of 28, BUN 32, creatinine 1.34. Troponin level was 0.058. It is noted that the patient does have a history of chronically elevated troponin. IMPRESSIONS: 1. Worsening fluid retention due to chronic systolic heart failure. The patient was recently hospitalized with acute renal failure, at which time her medications were changed and diuretics were stopped. It appears that she will require some long-term loop diuresis, but perhaps at a smaller dose than a month ago. 2. Dilated nonischemic cardiomyopathy. 3. Paroxysmal atrial fibrillation, currently in sinus rhythm. 4. History of hypertension. 5. History of hyperlipidemia. 6. Chronic renal insufficiency. PLAN: We will diurese the patient with loop diuretics gradually and monitor her renal functions carefully. No other cardiac workup is indicated at this time and the hospitalization will likely be dedicated to adjusting medications to find her optimal diuretic dose. [facility] and I thank the hospitalist physicians for asking our advice regarding her care. MILAGRO DOMINGUEZ MD CM:CONSTR:REPORT OF CONSULTATION 1640 04/11/18 0218 interface
--- NOTE | ~2018-04-10 | EKG ---
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
--- NOTE | ~2018-04-10 | PR ---
[place], [place] PROGRESS NOTE NAME: BERTHA MEJIA UNIT #: [id number] ROOM: 506 DOCTOR: MILAGRO DOMINGUEZ MD BIRTHDATE: [birth year] DOS: 04/11/2018 SUBJECTIVE: The patient was seen today on 04/11/2018 at her bedside for followup of her paroxysmal atrial fibrillation, dilated nonischemic cardiomyopathy and a history of acute renal insufficiency. In early March, she was hospitalized for acute renal failure with a creatinine of 3.77, a potassium of 6.8 and bradycardia. This was felt to be due to diuresis, spironolactone and ASHLIE inhibitor therapy. Her medications were adjusted and diuretics were stopped. Her renal functions improved, but in the last few weeks, she has noticed that she is holding on to excessive water again. She gained about 15 pounds in the last month and therefore came to the Emergency Room. She was found to be in heart failure; however, her renal functions had improved dramatically compared to a month previously. She was placed on IV Lasix in the hospital and she has diuresed about a liter. She does feel better and has less swelling. PHYSICAL EXAMINATION: VITAL SIGNS: Today, her pulse is 54 and regular and blood pressure is 135/43. She is afebrile. NECK: Supple. She has no jugular distention. Carotids are full without bruits. She has no neck or supraclavicular masses and no thyromegaly. LUNGS: Respirations are unlabored. Her chest is clear to auscultation and percussion. She has no presacral edema or chest wall tenderness. HEART: Has a regular rhythm. She has a fourth heart sound, but no third heart sound or significant murmur. ABDOMEN: Soft and normally active. EXTREMITIES: Showed no edema today. LABORATORY DATA: Hemoglobin is 12.1. Sodium is 141, potassium 3.9, BUN 32 and creatinine 1.42. Yesterday, her BUN was 32 and her creatinine was 1.37. Serial troponin levels are chronically elevated to a mild degree; however, she does not show a typical pattern to suggest acute myocardial infarction. IMPRESSION: 1. Worsening fluid retention due to chronic systolic heart failure. The patient is responding to diuretic therapy. 2. Dilated nonischemic cardiomyopathy. 3. Paroxysmal atrial fibrillation. Currently, the patient is in sinus rhythm. 4. History of hypertension. 5. History of hyperlipidemia. 6. Chronic renal insufficiency. PLAN: I will switch her from IV to oral diuretics and decrease the dose. We will observe her for another 24 hours to make sure that she will continue to diurese. If she is doing well, she might be able to discharge within the next 24 hours. I thank the hospitalist physicians for asking our advice regarding her care. [place], [place] PROGRESS NOTE NAME: BERTHA MEJIA UNIT #: [id number] ROOM: 506 DOCTOR: MILAGRO DOMINGUEZ MD BIRTHDATE: [birth year] MILAGRO DOMINGUEZ MD CM:PNTRANS [id number] MILAGRO DOMINGUEZ MD 04/21/18 0852 interface
--- NOTE | ~2018-04-10 | EKG ---
[place], [place] ELECTROCARDIOGRAM REPORT NAME: BERTHA MEJIA UNIT #: [id number] ROOM: 506 DOCTOR: AMALIA DRAFT REPORT BIRTHDATE: [birth year] [facility] Test Date: 2018-04-10 Test Time: 19:14:04 Pat Name: BERTHA MEJIA Department: Room: 506 2 Gender: F Patent Clerk: Alejandrina Mauricio : 1935 Requested By: ERIKA STEVENS Order Number: [id number] Reading MD: Tai Mcgarry MD Measurements Intervals [place] Rate: 68 P: 106 [place]: 193 QRS: -62 QRSD: 156 T: 125 QT: 497 QTc: 529 Interpretive Statements Sinus rhythm Left bundle branch block No change from earlier ECG this date Electronically Signed On 04-11-2018 14:46:49 PST by Tai Mcgarry MD CM:EKGRPT:ELECTROCARDIOGRAM REPORT [id number] ERIKA OREILLYANY DRAFT REPORT ERIKA STEVENS
[~2018-04-10 12:32] MED LIST changes: -Atrovent 0.03%30 ML NAS; -FUROSEMIDE20 M1 PO; -Humalog SQ; -Ipratropium Brom3 ML NEB; -LEVAQUIN500 M2 PO; -LEVO-T25 MCG PO; -MUCINEX ER600 MG PO; -OXYGEN NAS; -Synthroid,Levo50 MCG PO; -TOPROL XL25 MG PO; -TOUJEO SOL300 UNIT/1 SQ
[2018-04-10 12:33] VITALS: BP 152/56
[2018-04-10 13:17] LABS: BASO # 0.1 10*3/uL (0.0-0.1); BASO % 0.8 % (0.0-1.0); EOS # 0.1 10*3/uL (0.0-0.4); EOS % 1.4 % (1.0-4.0); HEMATOCRIT 40.1 % (37.0-47.0); HEMOGLOBIN 12.5 g/dl (12.0-16.0); LYMPH # 1.5 10*3/uL (1.3-4.4); LYMPH % 16.3 % (27.0-41.0); MEAN CELL VOLUME 103.4 fl (81.0-99.0); MEAN CORPUSCULAR HGB 32.2 pg (27.0-31.0); MEAN CORPUSCULAR HGB CONC 31.2 g/dl (33.0-37.0); MEAN PLATELET VOLUME 10.4 fl (9.6-12.3); MONO % 10.6 % (3.0-9.0); NEUT # 6.4 10*3/uL (2.3-7.9); NEUT % 70.6 % (47.0-73.0); PLATELET COUNT AUTOMATED 312 10*3/uL (130-400); RED BLOOD COUNT 3.88 10*6/uL (4.10-5.10); RED CELL DISTRI WIDTH 14.6 % (0-14.5)
[2018-04-10 13:27] LABS: ACT PARTIAL THROMBO TIME 31.8 SECONDS (20.8-31.5); INTERNATIONAL NORM RATIO 1.1 (2.0-3.5)
[2018-04-10 13:32] LABS: ALBUMIN 2.9 gm/dl (3.1-4.5); CREATININE 1.37 mg/dL (0.55-1.02); POTASSIUM 4.4 mmol/L (3.5-5.1); TOTAL PROTEIN 6.8 gm/dL (6.4-8.2)
[2018-04-10 13:34] LABS: TROPONIN I 0.058 ng/ml (<0.045)
[2018-04-10 14:45] LABS: BILIRUBIN NEGATIVE (NEGATIVE); BLOOD NEGATIVE (NEGATIVE); CLARITY SL CLOUDY (CLEAR); COLOR YELLOW (YELLOW); GLUCOSE NEGATIVE (NEGATIVE); KETONE NEGATIVE (NEGATIVE); LEUKO ESTERASE 3+ (NEGATIVE); NITRITE NEGATIVE (NEGATIVE); PH 5.5 (5.0-9.0); UROBILINOGEN 0.2 E.U./dl (0.2-1.0)
[2018-04-10 14:49] LABS: BACTERIA TRACE; WBC 21-30 wbc/hpf (0-5)
[2018-04-10 15:10] VITALS: BP 103/44
[2018-04-10 15:21] VITALS: BP 103/44
[2018-04-10 16:00] VITALS: BP 103/44
[2018-04-10 20:00] VITALS: BP 128/88
[2018-04-11] VITALS: BP 140/52
[2018-04-11 06:16] LABS: BASO # 0.1 10*3/uL (0.0-0.1); BASO % 0.6 % (0.0-1.0); EOS # 0.3 10*3/uL (0.0-0.4); EOS % 3.3 % (1.0-4.0); HEMOGLOBIN 12.1 g/dl (12.0-16.0); LYMPH # 1.7 10*3/uL (1.3-4.4); LYMPH % 18.7 % (27.0-41.0); MEAN CELL VOLUME 102.7 fl (81.0-99.0); MEAN CORPUSCULAR HGB 32.7 pg (27.0-31.0); MEAN CORPUSCULAR HGB CONC 31.8 g/dl (33.0-37.0); MEAN PLATELET VOLUME 10.7 fl (9.6-12.3); MONO # 1.2 10*3/uL (0.1-1.0); MONO % 13.3 % (3.0-9.0); NEUT # 5.6 10*3/uL (2.3-7.9); NEUT % 63.6 % (47.0-73.0); PLATELET COUNT AUTOMATED 316 10*3/uL (130-400); RED CELL DISTRI WIDTH 14.5 % (0-14.5); WHITE BLOOD COUNT 8.8 10*3/uL (4.8-10.8)
[2018-04-11 06:22] LABS: CREATININE 1.42 mg/dL (0.55-1.02); FREE T4 0.84 ng/dl (0.76-1.46); PHOSPHOROUS 3.3 mg/dL (2.5-4.9); POTASSIUM 3.9 mmol/L (3.5-5.1)
[2018-04-11 06:28] LABS: THYROID STIM HORMONE (HS) 17.8 uIU/ml (0.358-4.75)
[2018-04-11 06:33] LABS: TROPONIN I 0.072 ng/ml (<0.045)
[2018-04-11 08:00] VITALS: BP 114/54
[2018-04-11 09:33] LABS: VITAMIN D, 25-HYDROXY 32.3 ng/mL (30-100)
[2018-04-11 12:00] VITALS: BP 135/43
[2018-04-11 16:00] VITALS: BP 115/90
[2018-04-11 20:00] VITALS: BP 122/42
[2018-04-12] VITALS: BP 122/34
[2018-04-12 06:03] LABS: CREATININE 1.5 mg/dL (0.55-1.02); TROPONIN I 0.035 ng/ml (<0.045)
[2018-04-12 08:00] VITALS: BP 124/58
[2018-04-12 12:00] VITALS: BP 126/43
[2018-04-12 16:00] VITALS: BP 125/56
[2018-04-13] VITALS: BP 118/73; BP 127/46
[2018-04-13 07:06] LABS: CREATININE 1.69 mg/dL (0.55-1.02); POTASSIUM 3.5 mmol/L (3.5-5.1)
[2018-04-13 08:08] VITALS: BP 122/68
[2018-04-13 08:14] VITALS: BP 122/68
[2018-04-13] MEDS ORDERED: FUROSEMIDE20 M1 PO (10:44)
[2018-04-13] MEDS ORDERED: Synthroid,Levo50 MCG PO (10:45)
[2018-06-05] MEDS ORDERED: LEVO-T25 MCG PO (23:31)
[2018-06-05] MEDS ORDERED: LASIX20 MG PO (23:33)
[2018-06-05] MEDS ORDERED: TOUJEO SOL300 UNIT/1 SQ (23:35)
[2018-06-06] MEDS ORDERED: OXYGEN NAS (02:04)
[2018-06-13] MEDS ORDERED: LEVAQUIN500 M2 PO (08:24)
[2018-06-13] MEDS ORDERED: METOPROLOL SUCC25 M2 PO (08:24)
[2018-06-13] MEDS ORDERED: MUCINEX ER600 MG PO (08:24)
[2018-07-22] MEDS ORDERED: LEVOTHYROXINE75 MCG PO (10:51)
[2018-07-22] MEDS ORDERED: POTASSIUM CHLO20 ME4 PO (10:52)
[2018-07-22] MEDS ORDERED: TOPROL XL25 MG PO (10:53)
[2018-07-23] MEDS ORDERED: LEVAQUIN750 M1 PO (13:29)
== END 2018-04-13 12:00 | disposition home or self-care (01) | DRG 291 ==
LOC: ED 12:32 → 5E 13:50 → EDHOLD 13:50 → 5E 14:14
PROVIDERS: Emergency Medicine; Internal Medicine; Internal Medicine Cardiovascular Disease; ADMIT Internal Medicine
DX: I13.0 Hypertensive heart and chronic kidney disease with heart failure and stage 1 through stage 4 chronic kidney disease, or unspecified chronic kidney disease (principal); I50.43 Acute on chronic combined systolic (congestive) and diastolic (congestive) heart failure; E44.0 Moderate protein-calorie malnutrition; N17.9 Acute kidney failure, unspecified; N18.3 Chronic kidney disease, stage 3 (moderate); F41.9 Anxiety disorder, unspecified; M19.90 Unspecified osteoarthritis, unspecified site; J44.9 Chronic obstructive pulmonary disease, unspecified; M10.9 Gout, unspecified; E78.5 Hyperlipidemia, unspecified; E03.9 Hypothyroidism, unspecified; I44.7 Left bundle-branch block, unspecified; I48.0 Paroxysmal atrial fibrillation; E11.65 Type 2 diabetes mellitus with hyperglycemia; Z87.891 Personal history of nicotine dependence; Z88.0 Allergy status to penicillin; Z88.2 Allergy status to sulfonamides; Z82.49 Family history of ischemic heart disease and other diseases of the circulatory system; Z79.4 Long term (current) use of insulin; Z68.30 Body mass index [BMI] 30.0-30.9, adult; Z99.81 Dependence on supplemental oxygen; I48.91 Unspecified atrial fibrillation; I42.0 Dilated cardiomyopathy

== ENCOUNTER 2018-04-20 09:45 | Emergency (ER) | payer OTHER, MEDICARE ==
[~2018-04-20] VITALS: Ht 170.1 cm; Wt 97.5 kg
--- NOTE | ~2018-04-20 | EKG ---
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: : 1935 Requested By: NIC THOMAS Order Number: [id number] Reading MD: Measurements Intervals [place] Rate: 65 P: 0 [place]: 63 QRS: -65 QRSD: 157 T: 119 QT: 506 QTc: 527 Interpretive Statements Sinus rhythm Short OH interval Nonspecific IVCD with LAD LVH with secondary repolarization abnormality Probable inferior infarct, acute Anteroseptal infarct, possibly acute Lateral leads are also involved Compared to ECG 04/10/2018 22:44:08 Short OH interval now present Intraventricular conduction delay now present Left ventricular hypertrophy now present Early repolarization now present Myocardial infarct finding now present Left bundle-branch block no longer present CM:EKGRPT:ELECTROCARDIOGRAM REPORT [id number] NIC HOLLAND DRAFT REPORT NIC THOMAS MD
[~2018-04-20 09:45] MED LIST changes: +FUROSEMIDE20 M1 PO; +Synthroid,Levo50 MCG PO
[2018-04-20 10:06] LABS: BASO % 0.4 % (0.0-1.0); EOS # 0.2 10*3/uL (0.0-0.4); HEMATOCRIT 40.5 % (37.0-47.0); HEMOGLOBIN 12.3 g/dl (12.0-16.0); LYMPH # 1.2 10*3/uL (1.3-4.4); LYMPH % 11.5 % (27.0-41.0); MEAN CELL VOLUME 103.6 fl (81.0-99.0); MEAN CORPUSCULAR HGB 31.5 pg (27.0-31.0); MEAN CORPUSCULAR HGB CONC 30.4 g/dl (33.0-37.0); MEAN PLATELET VOLUME 10.9 fl (9.6-12.3); MONO # 1.3 10*3/uL (0.1-1.0); NEUT # 7.5 10*3/uL (2.3-7.9); NEUT % 72.7 % (47.0-73.0); PLATELET COUNT AUTOMATED 296 10*3/uL (130-400); RED BLOOD COUNT 3.91 10*6/uL (4.10-5.10); RED CELL DISTRI WIDTH 13.9 % (0-14.5); WHITE BLOOD COUNT 10.3 10*3/uL (4.8-10.8)
[2018-04-20 10:24] LABS: ACT PARTIAL THROMBO TIME 33.5 SECONDS (20.8-31.5); INTERNATIONAL NORM RATIO 1.2 (2.0-3.5)
[2018-04-20 10:25] LABS: ALBUMIN 2.8 gm/dl (3.1-4.5); CREATININE 1.45 mg/dL (0.55-1.02); TOTAL PROTEIN 6.7 gm/dL (6.4-8.2)
[2018-04-20 10:28] LABS: TROPONIN I 0.047 ng/ml (<0.045)
[2018-04-20 11:21] LABS: BILIRUBIN NEGATIVE (NEGATIVE); BLOOD NEGATIVE (NEGATIVE); CLARITY SL CLOUDY (CLEAR); COLOR YELLOW (YELLOW); GLUCOSE NEGATIVE (NEGATIVE); KETONE NEGATIVE (NEGATIVE); LEUKO ESTERASE 2+ (NEGATIVE); NITRITE NEGATIVE (NEGATIVE); UROBILINOGEN 0.2 E.U./dl (0.2-1.0)
[2018-04-20 11:31] LABS: WBC 16-20 wbc/hpf (0-5)
[2018-04-20 11:32] LABS: BACTERIA 1+
[2018-06-05] MEDS ORDERED: LEVO-T25 MCG PO (23:31)
[2018-06-05] MEDS ORDERED: LASIX20 MG PO (23:33)
[2018-06-05] MEDS ORDERED: TOUJEO SOL300 UNIT/1 SQ (23:35)
[2018-06-06] MEDS ORDERED: OXYGEN NAS (02:04)
[2018-06-13] MEDS ORDERED: LEVAQUIN500 M2 PO (08:24)
[2018-06-13] MEDS ORDERED: MUCINEX ER600 MG PO (08:24)
[2018-06-13] MEDS ORDERED: METOPROLOL SUCC25 M2 PO (08:24)
== END 2018-04-20 12:36 | disposition home or self-care (01) ==
LOC: ED 09:45
PROVIDERS: Emergency Medicine
DX: I13.0 Hypertensive heart and chronic kidney disease with heart failure and stage 1 through stage 4 chronic kidney disease, or unspecified chronic kidney disease (principal); I50.9 Heart failure, unspecified; N18.3 Chronic kidney disease, stage 3 (moderate); E11.22 Type 2 diabetes mellitus with diabetic chronic kidney disease; M19.90 Unspecified osteoarthritis, unspecified site; J44.9 Chronic obstructive pulmonary disease, unspecified; E78.5 Hyperlipidemia, unspecified; M10.9 Gout, unspecified; E03.9 Hypothyroidism, unspecified; I48.0 Paroxysmal atrial fibrillation; Z68.30 Body mass index [BMI] 30.0-30.9, adult; Z79.4 Long term (current) use of insulin; Z79.899 Other long term (current) drug therapy; Z87.891 Personal history of nicotine dependence

== ENCOUNTER 2018-05-04 19:16 | Inpatient (IN) | payer OTHER, MEDICARE ==
[~2018-05-04] VITALS: Ht 170.2 cm; Wt 85.3 kg
[2018-05-04] VITALS (11 sets, daily range): BP systolic 93–164; BP diastolic 30–63
--- NOTE | ~2018-05-04 | PR ---
[place], [place] PROGRESS NOTE NAME: BERTHA MEJIA UNIT #: [id number] ROOM: 523 DOCTOR: MICHELLE MUNSON MD,LUKE BIRTHDATE: [birth year] DOS: 05/15/2018 PULMONARY PROGRESS NOTE SUBJECTIVE: The patient continued to do well with current medical management. Denies symptoms of fever or chills. Denies symptoms of coughing or any sputum expectoration. Denies symptoms of nausea or vomiting. OBJECTIVE: VITAL SIGNS: Normal temperature, respiratory rate 20, heart rate 57, blood pressure 128/50. Pulse oxygen saturation recorded on 4 liters nasal cannula 100% saturation of oxygen. HEENT: Examination shows head was atraumatic. Eyes nonicterus. NECK: Supple. CARDIOVASCULAR: S1, S2 audible. LUNGS: Crackles in the lower lung noted bilaterally. There was no wheezing. ABDOMEN: Soft, nontender. EXTREMITIES: Shows resolving edema. IMPRESSION: 1. Resolving acute respiratory failure gradually. 2. Acute congestive heart failure, bilateral pleural fluid. 3. Atrial fibrillation, status post electrical cardioversion. PLAN OF TREATMENT: No changes in the plan of care from the pulmonary standpoint. Continue current therapy as in progress. Usual care. All other supportive therapy, plan of management, care plan and treatment. LUKE MARTINEZ MD CM:PNTRANS [id number] LUKE MUNSON MD 05/16/18 0403 interface
--- NOTE | ~2018-05-04 | PR ---
[place], [place] PROGRESS NOTE NAME: BERTHA MEJIA UNIT #: [id number] ROOM: 523 DOCTOR: MICHELLE MUNSON MD,LUKE BIRTHDATE: [birth year] DOS: 05/16/2018 PULMONARY PROGRESS NOTE SUBJECTIVE: The patient has been resting comfortably on the bed this morning. Denies symptoms of chest pain, fever, chills, coughing, or sputum expectoration. Denies any pain of the lower extremities. OBJECTIVE: GENERAL: The patient is comfortably sitting this morning, without any distress. VITAL SIGNS: Normal temperature, respiratory rate 20, heart rate 62, blood pressure 118/56, pulse oxygen saturation on 4 liters nasal cannula 94% saturation at rest. HEENT: No acute change. CARDIOVASCULAR: S1 and S2 audible. LUNGS: Crackles with decreased breath sounds noted in the lungs bilaterally. ABDOMEN: Soft, nontender. Bowel sounds present. EXTREMITIES: No acute change. IMPRESSION: The patient who has been currently noted with: 1. Acute congestive heart failure. 2. Bilateral pleural fluid. 3. Acute respiratory failure with progressive but gradual improvement. PLAN OF MANAGEMENT: No changes in medical management. We will order a chest x-ray to assess the progression of pleural fluid. Crackles are still noted with decreased breath sounds in lower portion of the lungs. Discharge planning as per Cardiology Service's recommendation may be planned. LUKE MARTINEZ MD CM:PNTRANS [id number] LUKE MUNSON MD 05/16/18 1725 interface
--- NOTE | ~2018-05-04 | PR ---
[place], [place] PROGRESS NOTE NAME: BERTHA MEJIA UNIT #: [id number] ROOM: [facility] DOCTOR: MICHELLE MUNSON MD,LUKE BIRTHDATE: [birth year] DOS: 05/11/2018 PULMONARY PROGRESS NOTE SUBJECTIVE: The patient is noted comfortable at this time, without any acute distress, resting on the bed. She had been given diuretics yesterday. The urine output is noted decreased, not accurately recorded since the patient has been noted with urinary retention, Gonsales catheter was previously discontinued. She has not been noted with any symptoms of fever or chills. Shortness of breath is not noted at rest. There is no coughing, wheezing or chest pain reported. Denies any pain of the lower extremities. Remaining systems were reviewed, they were noted all negative. OBJECTIVE: VITAL SIGNS: Which were recorded showed the temperature noted as normal, respiratory rate 23, heart rate of 113, blood pressure 113/57. The pulse oxygen saturation recorded on 3 liters nasal cannula as 95% saturation. HEENT: Examination shows head was atraumatic. Eyes nonicterus. NECK: Supple. CARDIOVASCULAR: S1 and S2 was audible. LUNGS: With decreased breaths in the lower portion of the lungs. There is no wheezing. There are no crackles in the lower lungs as well. ABDOMEN: Soft, nontender. EXTREMITIES: Show resolving edema. LABORATORY DATA: BMP today: BUN is 70, creatinine 1.80, glucose 150, CO2 of 37. CBC this morning: WBC count 11.5, hemoglobin 11.5, hematocrit of 37.8, platelet count 269,000. IMAGING STUDIES: Ultrasound of the chest is also performed the bedside, still shows moderate-sized left pleural fluid, [id number] right pleural fluid as well, and an area of compression atelectasis in the lower lungs is also noted. IMPRESSION: 1. The patient has been currently noted with acute respiratory failure, successful liberation from mechanical ventilation. 2. Ongoing congestive heart failure. 3. Bilateral moderate-sized pleural fluid still noted. 4. The patient with cardiomyopathy. 5. Persistent atrial fibrillation, which has been noted currently with controlled response, but not noted with cardioversion to normal sinus rhythm. PLAN OF THERAPY: The patient will be continued with Lasix 40 mg daily at the present time intravenously. Continue bronchodilator. Monitor pleural fluid. Oxygen supplementation, maintain pulse oxygen saturation 92% or greater. The patient could be transferred from Intensive Care Unit to the medical floor after clearance from the Cardiology Services. The patient can undergo transesophageal echocardiogram and electrical cardioversion whenever desired by the Cardiology Services. [place], [place] PROGRESS NOTE NAME: BERTHA MEJIA UNIT #: [id number] ROOM: [facility] DOCTOR: LUKE MARTINEZ MD BIRTHDATE: [birth year] LUKE MARTINEZ MD CM:PAT [id number] LUKE MUNSON MD 05/11/18 1523 interface
--- NOTE | ~2018-05-04 | PR ---
[place], [place] PROGRESS NOTE NAME: BERTHA MEJIA UNIT #: [id number] ROOM: [facility] DOCTOR: MILAGRO DOMINGUEZ MD BIRTHDATE: [birth year] DOS: 05/06/2018 CARDIOLOGY PROGRESS NOTE SUBJECTIVE: The patient was seen at her bedside in the intensive care unit today. She is still on the ventilator. She is awake and uncomfortable with the ventilator and receiving intermittent sedation. Her chest x-ray continues to show signs of heart failure, but her white count is dropping. PHYSICAL EXAMINATION: VITAL SIGNS: Today, her pulse is 79 and regular, blood pressure is 132/40. NECK: Supple. She does have jugular distention. Carotids are full. LUNGS: Respirations are per ventilator. She has decreased breath sounds at the bases. HEART: Has a regular rhythm with a fourth heart sound, but no third heart sound. ABDOMEN: Soft. EXTREMITIES: Showed puffy hands and 2+ edema of the ankles. LABORATORY DATA: Blood gases today show pH 7.307 with a pCO2 of 47.6 and a pO2 of 151, bicarbonate is 22.4. Sodium is 146, potassium 3.8, chloride 111, CO2 of 24, BUN 43, creatinine 1.66. IMPRESSIONS: 1. Hospitalization with acute respiratory failure. 2. Paroxysmal atrial fibrillation. 3. Chronic combined systolic and diastolic heart failure with acute exacerbation complicated by pleural effusion and probable pneumonia. 4. Bradycardia on admission, likely due to the combination of her medications including amiodarone and metoprolol as well as hypoxemia and acidosis. PLAN: I agree that she should be diuresed more aggressively and we will increase her furosemide further. We will have to monitor her renal functions carefully and replace potassium as needed. We will continue to follow her with her primary physicians. We thank the hospitalist physicians for asking our advice regarding her care. [place], [place] PROGRESS NOTE NAME: BERTHA MEJIA UNIT #: [id number] ROOM: [facility] DOCTOR: MILAGRO DOMINGUEZ MD BIRTHDATE: [birth year] MILAGRO DOMINGUEZ MD CM:PNTRANS [id number] MILAGRO DOMINGUEZ MD 05/09/18 1321 interface
--- NOTE | ~2018-05-04 | PR ---
[place], [place] PROGRESS NOTE NAME: BERTHA MEJIA UNIT #: [id number] ROOM: 524 DOCTOR: MICHELLE MUNSON MD,LUKE BIRTHDATE: [birth year] DOS: 05/08/2018 PULMONARY CRITICAL CARE EVALUATION AND MANAGEMENT SUBJECTIVE: The patient was noted comfortable at this time on the mechanical ventilator, still getting same sedation and noted good mental status with opening her eyes with vocal commands. Diuresis was continued with high dose of Lasix. The diuresis noted effective in the last 24 hours, better than the 24 hours ago. The patient has not been reported any hemodynamic instability except atrial fibrillation with rapid ventricular response, which has been treated with intravenous Cardizem. Cardizem currently getting into this patient as 10 mg per hour infusion. Heart rate was noted variable with heart rate in the teens. The patient has been noted without any problem of the GI tract as well. There were no symptoms of hematuria or melena was noted. The antibiotic all of them discontinued yesterday. There was no suspicion of active infection including pneumonia. OBJECTIVE: VITAL SIGNS: The vital signs of the patient, which has been recorded showed the temperature currently remains normal, the respiratory rate is between 20-27, the heart rate of 115-72 with atrial fibrillation with rapid ventricular response, blood pressure is ranging between 102/47-132/47. The intake is 1030 mL, output is 3750 mL. The pulse oxygen saturation on 30% mechanical ventilation was 97% saturation recorded. HEENT: Examination shows head was atraumatic. Eyes nonicterus. The patient remains intubated. Orogastric tube in place. NECK: Supple. CARDIOVASCULAR SYSTEM: S1, S2 is audible. LUNGS: Decreased breath sounds are noted in the lungs with occasional crackles. There was no wheezing. ABDOMEN: Soft, nontender. CENTRAL NERVOUS SYSTEM: The patient with good mental status noted. MUSCULOSKELETAL: Without any acute deformities. EXTREMITIES: Still show 1-2+ pitting edema in upper and the lower extremities. Without any acute abnormal areas of skin rash or open areas. LABORATORY DATA: Today reviewed. The BMP today: BUN is 60, creatinine is 1.64, glucose is 168, sodium is 151, and CO2 is 34. The culture of the endotracheal aspirate, normal charo. The CBC of 05/08/2018, WBC count is 15.9, hemoglobin is 11.4, hematocrit is 37.6, and platelet count is 318,000. IMAGING DATA: The chest x-ray shows resolving pleural fluid. DIAGNOSTIC DATA: Ultrasound of the chest was performed at bedside was noted with improving pleural fluid. However, the resolution is still noted incomplete. Endotracheal tube noted 6 cm above the pacheco level. NG tube in the stomach. IMPRESSION: 1. The patient has been currently noted with severe acute hypoxemic respiratory [place], [place] PROGRESS NOTE NAME: BERTHA MEJIA UNIT #: [id number] ROOM: 524 DOCTOR: MICHELLE MUNSON MD,LUKE BIRTHDATE: [birth year] failure secondary to acute congestive heart failure with bilateral pleural fluid, peripheral edema. There was no evidence of any active infection. Leukocytosis, multifactorial. Bronchospasm has been resolved. 2. The patient with acute kidney injury, relatively remained stable. 3. Overall debility secondary to multiple ongoing medical illnesses. 4. High riding endotracheal tube. 5. Mild hypernatremia secondary to diuretics. 6. Atrial fibrillation with rapid ventricular response. PLAN OF MANAGEMENT: Diuretics to be continued. The dose was decreased to 20 mg b.i.d. I have ordered additional 40 mg of Lasix to be given today to help achieve the goal of good diuresis. She was started on CPAP of 5, pressure support of 10 that will be continued for 2 hours with arterial blood gases assessment and then potentially off liberation from mechanical ventilation. Continue current nutritional support. Continuation of bronchodilator for bronchospasm p.r.n. Supportive therapy, plan of management, care plan and treatment, and care for the patient to be continued. Continue the management of atrial fibrillation with rapid ventricular response. The endotracheal tube was already adjusted by advancing to 2.5 cm to get to its appropriate level about 3.5 to 4 cm above the pacheco level. Continue other ventilator bundle management, care plan, and therapies. Repeat chest x-ray ordered in the morning. Total time in pulmonary critical care evaluation and management was 39 minutes. LUKE MARTINEZ MD CM:PNTRANS [phone] LUKE MUNSON MD 05/26/18 0937 interface
--- NOTE | ~2018-05-04 | PR ---
[place], [place] PROGRESS NOTE NAME: BERTHA MEJIA UNIT #: [id number] ROOM: 523 DOCTOR: GLORIA RAMIREZ MD BIRTHDATE: [birth year] DOS: 05/14/2018 REASON FOR VISIT: Congestive heart failure and atrial fibrillation. HISTORY OF PRESENT ILLNESS: The patient is feeling better. Denies any chest pain or shortness of breath, no dizziness. No PND, no orthopnea. No nausea, vomiting, diarrhea. REVIEW OF SYSTEMS: Review of the 8 systems negative except as mentioned above. PHYSICAL EXAMINATION: VITAL SIGNS: Blood pressure 130/62, pulse 60, respiration 20. GENERAL: Alert, comfortable, in no acute distress. HEAD AND NECK: Neck supple, no distended neck veins, no carotid bruit. Tongue was moist and pharynx was clear. NECK: Supple, no distended neck veins, no carotid bruit. CHEST: Symmetrical, nontender. LUNGS: Clear to auscultation bilaterally. HEART: Regular rhythm, no S3. Grade 1/6 systolic murmur. ABDOMEN: Benign, nontender. Bowel sounds normal. EXTREMITIES: Showed no edema. Distal pulses palpable. SKIN: Warm and dry. No cyanosis. No clubbing. MEDICATIONS: Reviewed. ALLERGIES: Reviewed. IMPRESSION: 1. Acute on chronic systolic heart failure, stable. 2. Paroxysmal atrial fibrillation in sinus rhythm. 3. Intermittent sinus bradycardia, currently stable, asymptomatic. 4. Hypertension, stable. 5. Chronic kidney disease. RECOMMENDATIONS: 1. Continue current medications. 2. Blood pressure and heart rates are stable. 3. The patient can be discharged home tomorrow if she is feeling better and her blood pressure and heart rates are stable. 4. No family at bedside at the time of examination. [place], [place] PROGRESS NOTE NAME: BERTHA MEJIA UNIT #: [id number] ROOM: 523 DOCTOR: GLORIA RAMIREZ MD BIRTHDATE: [birth year] GLORIA RAMIREZ MD CM:PNTRANS [phone] GLORIA RAMIREZ MD 05/15/18 1221 interface
--- NOTE | ~2018-05-04 | EKG ---
[place], [place] ELECTROCARDIOGRAM REPORT NAME: BERTHA MEJIA UNIT #: [id number] ROOM: [facility] DOCTOR: AMALIA DRAFT REPORT BIRTHDATE: [birth year] [facility] Test Date: 2018-05-04 Test Time: 19:15:50 Pat Name: BERTHA MEJIA Department: Room: [facility] Gender: F [employer]: Fely Wood : 1935 Requested By: ROCÍO GUERIN Order Number: [id number] Reading MD: Tai Mcgarry MD Measurements Intervals [place] Rate: 83 P: 233 NE: 247 QRS: -73 QRSD: 181 T: 117 QT: 442 QTc: 520 Interpretive Statements Sinus or ectopic atrial rhythm Prolonged NE interval Left bundle branch block Compared to ECG 04/20/2018 09:56:55 No significant change Electronically Signed On 05-05-2018 17:48:20 PST by Tai Mcgarry MD CM:EKGRPT:ELECTROCARDIOGRAM REPORT [id number] ROCÍO TRIMBLE DRAFT REPORT ROCÍO GUERIN DO
--- NOTE | ~2018-05-04 | PR ---
[place], [place] PROGRESS NOTE NAME: BERTHA MEJIA UNIT #: [id number] ROOM: 523 DOCTOR: GLORIA RAMIREZ MD BIRTHDATE: [birth year] DOS: 05/15/2018 CARDIOLOGY PROGRESS NOTE REASON FOR VISIT: CHF and bradycardia. SUBJECTIVE: The patient is feeling better. Denies any chest pain or shortness breath. No palpitations, no dizziness, no edema, no orthopnea, no PND, no fever or chills, no bladder or bowel symptoms. No nausea, vomiting, diarrhea. REVIEW OF SYSTEMS: Review of the 8 systems negative except as mentioned above. PHYSICAL EXAMINATION: VITAL SIGNS: Blood pressure 125/50, pulse 57, respiration is 20. RHYTHM STRIPS: The patient in atrial fibrillation on the monitor. GENERAL: Alert, comfortable, in no acute distress. HEENT: Pupils are round and equal. Tongue was moist and pharynx clear. NECK: Supple, no distended neck veins, no carotid bruit. CHEST: Symmetrical, nontender. LUNGS: Few scattered rhonchi. Good air entry bilaterally. HEART: Irregularly irregular, grade 1/6 systolic murmur. ABDOMEN: Benign, nontender. Bowel sounds normal. EXTREMITIES: Showed no edema. Distal pulses palpable. SKIN: Warm and dry. No cyanosis, no clubbing. RECTAL: Deferred. GENITOURINARY: Deferred. MEDICATIONS, ALLERGIES AND LABORATORY: Reviewed. IMPRESSION: 1. Acute on chronic diastolic heart failure, stable. 2. Paroxysmal atrial fibrillation, rate is better. 3. Anemia. 4. Pneumonia. 5. Sepsis. RECOMMENDATIONS: 1. Continue current medications including her Xarelto and Lasix. 2. No further cardiac testing. 3. The patient has no significant bradycardia. There is no need for any permanent pacemaker at this time. 4. No family at bedside at the time of examination. Cardiology will see as needed. [place], [place] PROGRESS NOTE NAME: BERTHA MEJIA UNIT #: [id number] ROOM: 523 DOCTOR: GLORIA RAMIREZ MD BIRTHDATE: [birth year] GLORIA RAMIREZ MD CM:PNTRANS [id number] GLORIA RAMIREZ MD 05/16/18 1326 interface
--- NOTE | ~2018-05-04 | PR ---
[place], [place] PROGRESS NOTE NAME: BERTHA MEJIA UNIT #: [id number] ROOM: [facility] DOCTOR: MILAGRO DOMINGUEZ MD BIRTHDATE: [birth year] DOS: 05/07/2018 CARDIOLOGY PROGRESS NOTE SUBJECTIVE: The patient was seen at her bedside in the Intensive Care Unit today 05/07/2018 for followup of respiratory failure. She is an 83-year-old woman with a history of coronary artery disease, persistent atrial fibrillation, systolic and diastolic heart failure, hypertension, and a chronic left bundle-branch block who presented to the hospital with worsening respiratory distress and failure. She was evaluated by Pulmonary who believes that her symptoms are mostly due to heart failure. She is being treated for bronchospasm as well. Since admission, she has diuresed slightly and renal functions have been about stable. She remains on a ventilator and appears comfortable with sedation. PHYSICAL EXAMINATION: VITAL SIGNS: Today, her pulse is 74 and regular, blood pressure is 134/46. She is afebrile. NECK: Supple. She has minimal jugular distention with hepatojugular reflux. Carotids are full. LUNGS: Respirations are per ventilator. She has decreased breath sounds at the bases. HEART: Has a regular rhythm. She has a fourth heart sound, but no third heart sound or significant murmur. ABDOMEN: Soft and normally active. EXTREMITIES: Do show puffy hands and feet with 1-2+ edema of the ankles. IMPRESSION: 1. Hospitalization with acute respiratory failure. 2. Paroxysmal atrial fibrillation. 3. Chronic combined systolic and diastolic heart failure with acute exacerbation complicated by pleural effusions and possible pneumonia. 4. Bradycardia on admission, possibly due to the combination of her medications including amiodarone and metoprolol as well as hypoxemia and acidosis. PLAN: We will continue diuresis and monitoring of her renal functions. Hopefully, she will have improved respiratory mechanics with this and be able to extubate in the next day or two. I thank the hospitalist physicians for asking our advice regarding her care. [place], [place] PROGRESS NOTE NAME: BERTHA MEJIA UNIT #: [id number] ROOM: [facility] DOCTOR: MILAGRO DOMINGUEZ MD BIRTHDATE: [birth year] MILAGRO DOMINGUEZ MD CM:PNTRANS [phone] MILAGRO DOMINGUEZ MD 05/08/18 0907 interface
--- NOTE | ~2018-05-04 | PR ---
[place], [place] PROGRESS NOTE NAME: BERTHA MEJIA UNIT #: [id number] ROOM: [facility] DOCTOR: MILAGRO DOMINGUEZ MD BIRTHDATE: [birth year] DOS: 05/08/2018 CARDIOLOGY PROGRESS NOTE SUBJECTIVE: The patient was seen at her bedside today, 05/08/2018, in the Intensive Care Unit. There was no family at the bedside. She remains intubated and on a ventilator. She did diurese yesterday and had about 4800 mL out and negative fluid balance in the last 2 days. With this, her BUN has risen from 43 two days ago to 65 today. Her creatinine has been fairly stable at 1.69. Overnight, she did go back into atrial fibrillation with a rapid ventricular response. PHYSICAL EXAMINATION: VITAL SIGNS: Her pulse is 120 and irregularly irregular despite a diltiazem drip. Blood pressure is 102/47. She is afebrile. NECK: Supple. She does not have obvious jugular distention. Carotids are full. LUNGS: Respirations are per ventilator. She does have decreased breath sounds at the bases. HEART: Rapid irregular rhythm without murmurs or gallops. ABDOMEN: Soft and normoactive. EXTREMITIES: Showed no edema. IMPRESSION: 1. Hospitalization with acute respiratory failure. 2. Paroxysmal atrial fibrillation. The patient did go back into atrial fibrillation with a rapid ventricular response overnight. 3. Chronic combined systolic and diastolic heart failure with acute exacerbation, pleural effusion and possible pneumonia. 4. Bradycardia on admission, possibly due to the combination of medications including amiodarone and metoprolol as well as hypoxemia and acidosis. PLAN: The patient appears to be euvolemic and her renal functions are deteriorating. Her diuretics will be decreased substantially. For now, we will stop her diltiazem drip and try to bolus and drip her with amiodarone to see if that will convert her back to sinus. I thank the hospitalist physicians for asking our advice regarding her care. [place], [place] PROGRESS NOTE NAME: BERTHA MEJIA UNIT #: [id number] ROOM: [facility] DOCTOR: MILAGRO DOMINGUEZ MD BIRTHDATE: [birth year] MILAGRO DOMINGUEZ MD CM:PNFIDEL [id number] MILAGRO DOMINGUEZ MD 05/09/18 0623 interface
--- NOTE | ~2018-05-04 | EKG ---
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
--- NOTE | ~2018-05-04 | PR ---
[place], [place] PROGRESS NOTE NAME: BERTHA MEJIA UNIT #: [id number] ROOM: 523 DOCTOR: MILAGRO DOMINGUEZ MD BIRTHDATE: [birth year] DOS: 05/13/2018 CARDIOLOGY PROGRESS NOTE SUBJECTIVE: The patient was seen at her bedside in the intensive care unit today on 05/13/2018 for followup of her respiratory failure and congestive heart failure. Yesterday, we did do a cardioversion, which she tolerated well. She reverted to sinus bradycardia after a single synchronized shock at 100 watt seconds. She states that her chest is a bit sore today, but denies that she has any significant dyspnea at rest. She is breathing much more easily and is sitting at the side of her bed. PHYSICAL EXAMINATION: VITAL SIGNS: Her pulse is 54 and regular, blood pressure is 128/77. She is afebrile. She weighs 88.6 kg and has a body mass index of 30.6. NECK: Supple. She has no jugular distention. Carotids are full. LUNGS: Respirations are unlabored. She does have bibasilar crackles. She has no presacral edema. HEART: Has a regular rhythm with a fourth heart sound, but no third heart sound. ABDOMEN: Soft and normally active. EXTREMITIES: Showed no edema. IMPRESSION: 1. Acute respiratory failure, resolved. Most likely this was due to fluid overload with possible superimposed infection. 2. Paroxysmal atrial fibrillation. 3. Elevated liver function tests. Etiology of this is not clear and may represent a shock liver from hypotension, hypoxemia, etc. Amiodarone liver toxicity is also a possibility. However, the liver enzymes are dropping rapidly despite the fact that amiodarone was only stopped yesterday. The kinetics of the drug make it unlikely that it is out of her system yet and therefore the fact that she is improving rapidly supports the idea that the amiodarone did not cause this. 4. Bradycardia on admission, the patient now has sinus bradycardia again. PLAN: We will withhold her beta michael and continue to monitor her in the ICU. 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 We thank the hospitalist physicians for asking our advice regarding her care. [place], [place] PROGRESS NOTE NAME: BERTHA MEJIA UNIT #: [id number] ROOM: 523 DOCTOR: MILAGRO DOMINGUEZ MD BIRTHDATE: [birth year] MILAGRO DOMINGUEZ MD CM:PNTRANS [phone] MILAGRO DOMINGUEZ MD 05/13/18 235 interface
--- NOTE | ~2018-05-04 | EKG ---
[place], [place] ELECTROCARDIOGRAM REPORT NAME: BERTHA MEJIA UNIT #: [id number] ROOM: [facility] DOCTOR: AMALIA DRAFT REPORT BIRTHDATE: [birth year] [facility] Test Date: 2018-05-05 Test Time: 02:53:36 Pat Name: BERTHA MEJIA Department: Room: [place] [address] Gender: F Clinical Education Assistant: Ebony Thomas : 1935 Requested By: TRACEY SUNSHINE Order Number: [id number] Reading MD: Tai Mcgarry MD Measurements Intervals [place] Rate: 42 P: -76 [place]: 141 QRS: -64 QRSD: 164 T: 147 QT: 664 QTc: 555 Interpretive Statements Sinus or ectopic atrial bradycardia Left bundle branch block No change from earlier ECG this date Electronically Signed On 05-05-2018 17:51:52 PST by Tai Mcgarry MD CM:EKGRPT:ELECTROCARDIOGRAM REPORT [id number] TRACEY TRIMBLE DRAFT REPORT TRACEY SUNSHINE DO
--- NOTE | ~2018-05-04 | PR ---
[place], [place] PROGRESS NOTE NAME: BERTHA MEJIA UNIT #: [id number] ROOM: 524 DOCTOR: MICHELLE MUNSON MD,LUKE BIRTHDATE: [birth year] DOS: 05/18/2018 PULMONARY PROGRESS NOTE SUBJECTIVE: The patient noted comfortable at this time, resting on the bed. She has been started on diuretics, higher dose ingested by Dr. Kurtz. She has been getting Lasix 40 mg IV q.8 hours. She has been noted fatigued and tired this morning. No symptoms of chest pain, fever or chills reported. Denies symptoms of nausea or vomiting. The patient has been continuing oxygen supplementation the morning and used the BiPAP at times at night time. Remaining systems reviewed noted all negative. PHYSICAL EXAMINATION: VITAL SIGNS: The patient noted as normal temperature, respiratory rate of 16, heart rate 61, blood pressure 138/56. The pulse oxygen saturation recorded on 10.5 liters nasal cannula 90% saturation. HEENT: Head was atraumatic. Eyes nonicterus. NECK: Supple. CARDIOVASCULAR: S1, S2 is audible. LUNGS: Still noted decreased breaths in the lower portion of the lung. Crackles of the lung, only partially decreased from yesterday. There was no wheezing. ABDOMEN: Soft, nontender. EXTREMITIES: Without any acute edema. MUSCULOSKELETAL: Chronic deformity. CENTRAL NERVOUS SYSTEM: Cranial nerves 2-12 intact. VISIBLE SKIN: Without lesions or rashes. LABORATORY DATA: BMP this morning was noted BUN 24, creatinine 1.27, glucose was normal, CO2 of 3. IMPRESSION: 1. The patient with improving acute congestive heart failure. The patient with systolic dysfunction with bilateral pleural fluid, congestive heart failure, partial improvement from yesterday. 2. Acute respiratory failure remains stable. 3. Severe debility, remains persistent. PLAN OF MANAGEMENT: Continue current dose of Lasix, which started 40 mg every 8 hours. Monitor kidney functions, seem to be stable with that. She was still not noted with significant negative fluid balance from yesterday. Monitoring respiratory status use of the BiPAP as tolerated with oxygen supplementation, other time. Usual care, other supportive therapy, plan of management and other treatment plan and management, additional changes based on progression of the illness. [place], [place] PROGRESS NOTE NAME: BERTHA MEJIA UNIT #: [id number] ROOM: 524 DOCTOR: LUKE MARTINEZ MD BIRTHDATE: [birth year] LUKE MARTINEZ MD CM:PNTRANS [id number] LUKE MUNSON MD 05/26/18 0943 interface
--- NOTE | ~2018-05-04 | PR ---
[place], [place] PROGRESS NOTE NAME: BERTHA MEJIA UNIT #: [id number] ROOM: 523 DOCTOR: MICHELLE MUNSON MD,LUKE BIRTHDATE: [birth year] DOS: 05/14/2018 SUBJECTIVE: The patient was noted comfortable at this time, sitting on a bed. Shortness of breath has been gradually subsiding. There were no symptoms of coughing, sputum expectoration, or chest pain reported by the patient. Denies symptoms of nausea or vomiting. OBJECTIVE: VITAL SIGNS: For the patient normal temperature, respiratory rate 18, heart rate of 59, blood pressure 136/62, and pulse oxygen saturation on 4 liters nasal cannula 93% saturation. HEENT: Examination shows head was atraumatic. Eyes nonicterus. NECK: Supple. CARDIOVASCULAR: S1, S2 is audible. LUNGS: The patient was noted decreased breath sounds with crackles in the lower portion of the lungs as previously, remains unchanged. ABDOMEN: Soft and nontender. Bowel sounds present. EXTREMITIES: No acute edema. IMPRESSION: 1. Resolving acute congestive heart failure with bilateral pleural fluid still noted. 2. The patient's atrial fibrillation currently noted normal sinus rhythm and sinus bradycardia after electrical cardioversion in the last 2 days, improving acute hypoxic respiratory failure. PLAN OF TREATMENT: No change in plan of management. Maximize the management of the patient with congestive heart failure and other cardiac problem by Cardiology Services. From the pulmonary standpoint, continue oxygen supplementation previously. No other acute intervention will be necessary. LUKE MARTINEZ MD CM:PNTRANS 1 25 LUKE MUNSON MD 05/14/182025 interface
--- NOTE | ~2018-05-04 | PR ---
[place], [place] PROGRESS NOTE NAME: BERTHA MEJIA UNIT #: [id number] ROOM: 524 DOCTOR: GLORIA RAMIREZ MD BIRTHDATE: [birth year] DOS: 05/16/2018 CARDIOLOGY PROGRESS NOTE REASON FOR VISIT: CHF and A-FIB. SUBJECTIVE: The patient is feeling better. Denies any chest pain or shortness of breath. She is sitting in the chair next to her bed. Denies any chest pain, palpitations, dizziness. No orthopnea, no PND. No nausea, vomiting, diarrhea. She is anticipating discharge home. REVIEW OF SYSTEMS: Review of the 8 systems negative except as mentioned above. PHYSICAL EXAMINATION: VITAL SIGNS: Blood pressure 131/47, pulse 62, respirations 20. Weight 88.6 kilos. RHYTHM STRIPS: The patient is in sinus rhythm. GENERAL: The patient is alert, oriented, no acute distress. HEAD AND NECK: Pupils are unequal. 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 Tongue was moist and pharynx clear. Neck is supple, no distended neck veins, no carotid bruit. CHEST: Symmetrical, nontender. LUNGS: Clear to auscultation bilaterally. HEART: Regular rhythm, no S3. Grade 1/6 systolic murmur. ABDOMEN: Benign. Bowel sounds normal. EXTREMITIES: Showed no edema. Distal pulses palpable. SKIN: Warm and dry. No cyanosis, no clubbing. RECTAL: Deferred. MEDICATIONS AND LABORATORIES: Reviewed. IMPRESSION: 1. Paroxysmal atrial fibrillation, in sinus rhythm. 2. Acute on chronic diastolic heart failure, stable. 3. Peripheral vascular disease. 4. Anemia. 5. Diabetes type 2. RECOMMENDATIONS: 1. Continue current medications. 2. She can be discharged to home from the cardiac standpoint. 3. Discussed with her brother who is just visiting her. [place], [place] PROGRESS NOTE NAME: BERTHA MEJIA UNIT #: [id number] ROOM: 524 DOCTOR: GLORIA RAMIREZ MD BIRTHDATE: [birth year] GLORIA RAMIREZ MD CM:PNTRANS 30 [phone] GLORIA RAMIREZ MD 05/26/18 0945 interface
--- NOTE | ~2018-05-04 | PR ---
[place], [place] PROGRESS NOTE NAME: BERTHA MEJIA UNIT #: [id number] ROOM: [facility] DOCTOR: MICHELLE MUNSON MD,LUKE BIRTHDATE: [birth year] DOS: 05/06/2018 PULMONARY CRITICAL CARE EVALUATION AND MANAGEMENT SUBJECTIVE: The patient remains on mechanical ventilator. Continue to sedate for the patient and with reduction of sedation, she has been noted with the mental status following vocal commands. The Diprivan was discontinued yesterday because of bradyarrhythmia, bradyarrhythmia seemed to be corrected with that. The patient has been noted positive fluid balance as well, getting intravenous Versed 5 mg q. 1 hour for sedation purposes. This morning as the patient was seen, she has been adequately sedated. Remains on the mechanical ventilator at the present time. The brother of the patient has been present at the bedside of the patient as well. The feeding was continued without any difficulty. The patient was continued on ventilator bundle management and remains afebrile. OBJECTIVE: VITAL SIGNS: For the patient shows a temperature was noted as normal, respiratory rate of 18-24. Heart rate of 81-55. Blood pressure 138/43-130/49. Intake for the patient recorded as 3.4 to 0 liter, output 1150 mL. Pulse oxygen saturation noted on 40% oxygen 100% saturation. HEENT: Examination shows head was atraumatic. The patient is currently intubated. Orogastric tube is in place. NECK: Supple. CARDIOVASCULAR: S1, S2 is audible. LUNGS: The patient was noted with decreased breath sounds in the lungs noted bilaterally. There were no crackles or wheezing. ABDOMEN: Soft. EXTREMITIES: Edema of the upper and the lower extremities. VISIBLE SKIN: No lesions or rashes. MUSCULOSKELETAL: Without acute deformities. CENTRAL NERVOUS SYSTEM: The patient noted with normal mental status with a sedation vacation per nursing staff. LABORATORY DATA: The patient's CBC this morning, WBC count 11.3, hemoglobin 10.5, hematocrit 35.3, platelet count of 273,000. BMP this morning, BUN 43, creatinine 1.68, glucose 270. Glucose 146. Chloride 111. The urine culture of the patient showed no bacterial growth. Arterial blood gas this morning, pH of 7.30, pCO2 of 47, pO2 151 with the findings consistent with respiratory acidosis of the patient as well, this was on 40% oxygen. Chest x-ray of the patient, bilateral moderate size pleural fluid was noted. The ultrasound of the chest was personally performed at the bedside for the patient shows moderate to large right pleural fluid and moderate size pleural fluid on the left side confirmed. Endotracheal tube for the patient noted appropriate position of the NG tube was also noted in the appropriate position as well. IMPRESSION: 1. The patient who has been currently noted with cardiomyopathy for this patient with acute systolic congestive heart failure with edema for this patient briefly as well as bilateral pleural fluids. 2. The patient with compression atelectasis related to that. [place], [place] PROGRESS NOTE NAME: BERTHA MEJIA UNIT #: [id number] ROOM: [facility] DOCTOR: MICHELLE MUNSON MD,LUKE BIRTHDATE: [birth year] 3. Acute on chronic kidney injury of the patient related to congestive heart failure and hypoperfusion as well is very likely cause. 4. Overall severe debility of the patient was also noted. 5. Mild anemia for the patient most likely chronic disease and no active gastrointestinal bleeding. PLAN OF MANAGEMENT: The patient needs to be diuresed aggressively for the patient. Monitor kidney function, electrolytes. Continue nutrition support as previously tolerated. Continue ventilator bundle management. The patient is also receiving Solu-Medrol with possible bronchospasm for the patient may be related to interstitial edema. Steroids will be continued for the next 24 hours, then may need to be discontinued. Other supportive therapy, plan of management, care plan for the patient and treatment change made based on progression of the illness. Usual care. Assessment and management has been discussed with the patient's brother at the bedside. She was not noted a weaning candidate for today. Weaning will be attempted for the patient most likely tomorrow after achieving the negative fluid balance. Total time of pulmonary critical evaluation and management was 40 minutes. LUKE MARTINEZ MD CM:PNTRANS [id number] LUKE MUNSON MD 05/07/18 0513 interface
--- NOTE | ~2018-05-04 | PR ---
[place], [place] PROGRESS NOTE NAME: BERTHA MEJIA UNIT #: [id number] ROOM: 524 DOCTOR: MICHELLE MUNSON MD,LUKE BIRTHDATE: [birth year] DOS: 05/10/2018 SUBJECTIVE: The patient was noted comfortable at this time, doing very well. She has been using oxygen supplementation nasal cannula. She has not reported any symptoms of fever or chills. Incentive coughing. General weakness and fatigue was noted. There were symptoms of hemoptysis with symptoms of nausea, vomiting, diarrhea, abdominal pain, edema of the extremities continued to resolve. Remaining systems were reviewed, noted negative. The patient was still noted tachycardia and continued on intravenous Cardizem drip. OBJECTIVE: VITAL SIGNS: Shows temperature 99.4 degree Fahrenheit, respiratory rate 24-26, heart rate of 120-113 with atrial fibrillation, rapid ventricular response, blood pressure ranging between 118/66-92/50. Intake for the patient was recorded at 2000, output 1950 mL. Pulse ox saturation on 3 liters nasal cannula 97% saturation. HEENT: Examination shows head was atraumatic. Eyes nonicterus. NECK: Supple. CARDIOVASCULAR: S1, S2 is audible. LUNGS: The patient was noted with decreased breaths in the lower portion of the lungs bilaterally with scattered crackles. There was no wheezing. ABDOMEN: Soft, nontender. Bowel sounds present. EXTREMITIES: Shows continued resolving edema. MUSCULOSKELETAL: No acute deformities. LABORATORY DATA: Blood cultures, no bacterial growth from 05/04/2018. CBC, WBC count normal, hemoglobin 11.3, platelet count normal. The CMP this morning, BUN 65, creatinine 1.67, glucose 209. Sodium 147, CO2 37. IMPRESSION: The patient with acute hypoxic respiratory failure. Chest x-ray that was done this morning one-view portable shows evidence of bilateral pleural fluid, finding of congestive heart failure. Multi-lumen catheter noted in place to the left internal jugular venous approach. IMPRESSION: 1. The patient with acute hypoxic respiratory failure. The patient with acute congestive heart failure with systolic dysfunction. 2. The patient with persistent atrial fibrillation with rapid ventricular response as well. 3. The patient with a kidney injury which has been noted acute but stable. Electrolyte imbalance secondary to diuretics. Metabolic alkalosis secondary to diuretics. PLAN OF MANAGEMENT: The patient will be given additional Lasix 40 mg today in addition to 20 mg b.i.d. already ordered. The pleural fluid noted small to moderate on the right, small on the left side. Other therapy, plan of management, care plan with additional treatment changes will be made based on progression of the illness. Usual care. Supportive care of therapy, plan of [place], [place] PROGRESS NOTE NAME: BERTHA MEJIA UNIT #: [id number] ROOM: 524 DOCTOR: MICHELLE MUNSON MD,LUKE BIRTHDATE: [birth year] management. Monitor the patient's respiratory status closely. Oxygen supplementation to be continued to maintain pulse ox 92% or greater. Chest x-ray monitoring as needed. Supportive care therapy, plan and management. Maximize the medical management of the congestive heart failure as well as atrial fibrillation with rapid ventricular response. Cardiology recommendations. LUKE MARTINEZ MD CM:PAT [id number] LUKE MUNSON MD 05/26/18 0939 interface
--- NOTE | ~2018-05-04 | PR ---
[place], [place] PROGRESS NOTE NAME: BERTHA MEJIA UNIT #: [id number] ROOM: 523 DOCTOR: MICHELLE MUNSON MD,LUKE BIRTHDATE: [birth year] DOS: 05/13/2018 SUBJECTIVE: The patient was noted comfortable at this time, resting in the bed. He underwent electrical cardioversion yesterday. The patient seemed to be successful, noted with mild sinus bradycardia this morning of assessment. Denies symptoms of fever or chills, coughing or any sputum expectoration. The patient denies any pain of the lower extremities. OBJECTIVE: VITAL SIGNS: Normal temperature, respiratory rate 18, heart rate 54, blood pressure 129/77. The pulse oxygen saturation recorded as 92%-98% saturation on 4 liters nasal cannula. HEENT: Examination shows head was atraumatic. Eyes: Nonicterus. NECK: Supple. CARDIOVASCULAR: S1, S2 audible. LUNGS: The patient noted decreased breath sounds. Crackles in the lower lungs are still present. ABDOMEN: Soft, nontender, bowel sounds present. EXTREMITIES: No acute change. IMPRESSION: 1. The patient with congestive heart failure, bilateral pleural fluid, still remains persistent at this time. Currently treated with diuretic. 2. Atrial fibrillation with sinus bradycardia. The patient with electrical cardioversion 24 hours ago. PLAN OF MANAGEMENT: Continue diuretic, bronchodilators, oxygen supplementation, other plan of management, care plan and therapy. Usual care. Supportive plan of treatment and management. LUKE MARTINEZ MD CM:PNTRANS [id number] LUKE MUNSON MD 05/14/18 0322 interface
--- NOTE | ~2018-05-04 | PR ---
[place], [place] PROGRESS NOTE NAME: BERTHA MEJIA UNIT #: [id number] ROOM: [facility] DOCTOR: MICHELLE MUNSON MD,LUKE BIRTHDATE: [birth year] DOS: 05/07/2018 PULMONARY PROGRESS NOTE SUBJECTIVE: The patient was seen and examined on 05/07/2018. She remains on mechanical ventilator. Sedation was continued in the form of the IV Versed of the patient intermittent use. She does open her eyes, follows vocal commands. The patient upon assessment this morning was personally made at the bedside. The patient now been noted with hemodynamic instability. She has been started on diuretic therapy, which has noted effective diuresis as well. The oxygen supplementation remains stable. No ventilator changes were needed. She had not been noted any symptoms of hemoptysis. There were no excessive secretion productions. OBJECTIVE: VITAL SIGNS: For the patient was noted as normal temperature in the last 24 hours, respiratory rate range between 20-32. Heart rate 72-74, blood pressure 134/46-130/39. Intake for the patient was recorded as intake of 15, output 1875 mL, negative for balance of 345 mL. Pulse ox saturation 30% oxygen, 93% saturation. HEENT: Examination shows the patient remained intubated. Head was atraumatic. Eyes nonicterus. NECK: Supple. CARDIOVASCULAR: S1, S2 is audible. LUNGS: The patient was noted without any wheeze or crackles at present time. Breath sounds still diminished bilaterally in the lower portion of the lungs. ABDOMEN: Soft, nontender. Bowel sounds present. EXTREMITIES: The patient was noted with edema. Partial improvement noted. MUSCULOSKELETAL: Noted without any acute deformities. CENTRAL NERVOUS SYSTEM: The patient normal mental status noted. The patient with the reduction of sedation. LABORATORY DATA: Arterial blood gas, pH of 7.38, pCO2 of 46, pO2 89. This was on 30% oxygen is controlled. CBC: WBC count 15.9, hemoglobin 10.6, hematocrit 33.7, platelet count 296,000. BMP that was done noted BUN 50, creatinine 1.66, glucose 244. Culture of the endotracheal aspirate noted as normal charo. Preliminary final culture results were pending. IMPRESSION: Bilateral pleural fluid, acute respiratory failure, peripheral edema as well. There was no clinical evidence of pneumonia at this time or other infections. Bronchospasm seems to be better, most likely secondary to interstitial edema. The patient is currently getting Lasix 60 mg q.8 hours. PLAN OF MANAGEMENT: Chest x-ray repeated in the morning. Discontinuation of the antibiotic at the present time and the corticosteroid, just continue with the simple bronchodilators for the patient as well. The patient has developed wheezing. Certain steroids could be resumed. Other therapy, plan of management, and care plan as well. Additional treatment changes will be made based on progression of the illness. Depends on further diurese for this patient. If it is noted effective certainly the weaning will be attempted. [place], [place] PROGRESS NOTE NAME: BERTHA MEJIA UNIT #: [id number] ROOM: [facility] DOCTOR: MICHELLE MUNSON MD,LUKE BIRTHDATE: [birth year] Sedation will be continued same at the present time. No changes need to be done. Continue Cardiology followup as well. Nutrition as previously ordered will be continued. Total time in pulmonary critical care evaluation and management was 36 minutes. LUKE MARTINEZ MD CM:PAT [id number] LUKE MUNSON MD 05/08/18 0704 interface
--- NOTE | ~2018-05-04 | CON ---
[place], [place] REPORT OF CONSULTATION NAME: BERTHA MEJIA UNIT #: [id number] ROOM: 524 DOCTOR: LUKE MARTINEZ MD BIRTHDATE: [birth year] DOS: 05/05/2018 PULMONARY CONSULTATION EVALUATION AND MANAGEMENT CONSULTATION REQUESTED BY: Hospitalist services. REASON FOR CONSULTATION: For the assessment and management of recurrent acute respiratory failure. HISTORY OF PRESENT ILLNESS: An 83-year-old white female patient who has been known to me, seen in the office in 03/2018. 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 The patient contacted the neighbor. The patient reported symptoms of shortness of breath. She has been assessed by the Emergency Room. The patient was noted unresponsive. The CPR was started and also noted a thready pulse. The patient is intubated. She had been brought to the Emergency Room. The patient has been started antibiotic and the chest x-ray was reported with findings of acute pneumonia. The patient has been currently treated in the hospital and receiving mechanical ventilation, noted unresponsive. The patient is intubated on the mechanical ventilator at the present time as well. The history could not be obtained from the patient. All the previous history of the patient is actually review of my documentation and assessment in the office of 03/2018 and the current history is part of the history reviewed for the patient done by the other physician's note and their assessments. PAST MEDICAL HISTORY: 1. Noted as mild intermittent bronchial asthma. 2. Severe obstructive sleep apnea disorder, nonadherence with the treatment with AHI noted as 80 and BiPAP pressure of 18 and 12, but not used by the patient. 3. Congestive heart failure with systolic dysfunction. 4. Hypothyroidism. 5. Hypercholesterolemia. 6. Type 2 diabetes mellitus. 7. Permanent atrial fibrillation. 8. Obesity. 9. 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 10. Previous diagnosis in 03/2018 for severe hyperkalemia, bradyarrhythmia are resolved. The patient was treated. The patient also noted acute kidney injury at that time. PAST SURGICAL HISTORY: 1. T and A. 2. Bilateral inguinal hernia repair. SOCIAL HISTORY: The patient is single, does not have any children, lives at home by herself. There was no history of alcohol use, illicit drug use. Tobacco use was noted for the age [age] years old, 2 packs of cigarettes per day [place], [place] REPORT OF CONSULTATION NAME: BERTHA MEJIA UNIT #: [id number] ROOM: 524 DOCTOR: MICHELLE MUNSON MD,LUKE BIRTHDATE: [birth year] until 1992. FAMILY HISTORY: The patient's father at age of 8888 years old, complication of heart disease. Mother at 92 years old from old age. MEDICATIONS: The current medication, which were listed on admission as allopurinol, amiodarone, Lasix, NovoLog insulin, Lantus insulin, Synthroid, omega 3 fatty acid, Xarelto, and simvastatin. DRUG ALLERGIES: NOTED WITH ALLERGIES TO: 1. PENICILLIN. 2. SULFA DRUG. 3. ERYTHROMYCIN. PHYSICAL EXAMINATION: GENERAL: This is an 83-year-old female patient who was being currently noted intubated on the mechanical ventilator. Height of 5 feet 7 inches, weight of 195 pounds, BMI 30.6. VITAL SIGNS: For the patient, which has been recorded showed the temperature noted as normal. The respiratory rate of the patient recorded as 14-16. The heart rate ranged between 59-42. The blood pressure of 164/63-136/47. Pulse oxygen saturation on 40% oxygen was 94% with the previous of 50% oxygen, the saturation of oxygen was noted as 100% at the bedside. HEENT: Head was atraumatic. Eyes nonicterus. CARDIOVASCULAR: S1, S2 is audible. LUNGS: Noted with [id number] decreased breath sounds in the lungs noted bilaterally. There were no crackles or wheezing noted at the present time. ABDOMEN: Soft, nontender. Bowel sounds present. EXTREMITIES: The patient noted without acute edema. MUSCULOSKELETAL: Without any acute obvious deformities. CENTRAL NERVOUS SYSTEM: The patient is sedated at present time. LABORATORY DATA: CBC: WBC count 14.9, hemoglobin 11.2, platelet count were normal on admission yesterday. The lactic acid 3.5 on admission, following is 2.0. The PT, PTT for the patient yesterday normal. Troponin 0.180 was recorded the first set, second set is 0.153 this morning. The CMP, which was done on admission shows a BUN of 34, creatinine 1.82, glucose of 290. Total protein 6.0, albumin 2.5. CBC of this morning lab for this patient's WBC count 12.1, hemoglobin 11.5, platelet count normal. CMP of the patient this morning, BUN 36, creatinine 1.46, glucose 168. Albumin 2.5. Arterial blood gas that was done yesterday, pH 7.30, pCO2 of 53, pO2 of 197 on 100% oxygen, assist control, volume control mechanical ventilation. Arterial blood gas this morning, 50% oxygen, pO2 of 71, pH of 7.41, pCO2 of 40. Intake from admission 3.35 liter, the output 400 mL. The review of the radiology data for this patient, the chest x-ray that was reviewed. Evidence of pulmonary edema, congestive heart failure finding the patient was noted, endotracheal tube noted in proper position. Chest x-ray done this morning showed reduction. Other findings of pulmonary edema. IMPRESSION: [place], [place] REPORT OF CONSULTATION NAME: BERTHA MEJIA UNIT #: [id number] ROOM: 524 DOCTOR: JOSE MARTINEZ MDM BIRTHDATE: [birth year] 1. The patient will be currently admitted to the hospital with acute respiratory arrest, status post resuscitation successfully. 2. Acute pulmonary edema, rule out acute myocardial injury or other etiology for patient as well. 3. Bradyarrhythmia, multifactorial, possibly related to heart disease and partly contributed by the Diprivan. 4. Acute kidney injury with acute tubular necrosis, hyperperfusion is the likely cause. 5. History of bronchial asthma. 6. History of congestive heart failure previously noted with a left ventricle dysfunction. 7. History of obstructive sleep apnea disorder, nonadherence with the treatment. PLAN OF CARE: The patient would be continued on oxygen supplementation, current mechanical ventilation for this patient needs to be otherwise not changed. The patient will be started on ventilator bundle management. Bronchodilator help mobilize secretions. Discontinue the Diprivan. Alternative mode of sedation will be used for this patient with use of the intravenous Versed 5 mg every 1 hour p.r.n. for sedation. Monitor mental status closely since the patient could have change in mental status with current resuscitative efforts. Other supportive therapy, plan of management. Additional treatment changes will be recommended based on progression of the illness. Supportive care, other treatment to be continued. Total time of pulmonary critical care evaluation and management was 46 minutes. LUKE MARTINEZ MD CM:CONSTR:REPORT OF CONSULTATION 1157 05/26/18 0931 interface
--- NOTE | ~2018-05-04 | PR ---
[place], [place] PROGRESS NOTE NAME: BERTHA MEJIA UNIT #: [id number] ROOM: [facility] DOCTOR: MICHELLE MUNSON MD,LUKE BIRTHDATE: [birth year] DOS: 05/09/2018 PULMONARY PROGRESS NOTE SUBJECTIVE: The patient successfully liberated from mechanical ventilator yesterday. She has been noted with good diuresis in the last 24 hours as Lasix was given to a total of 80 mg. She has not been reported any symptoms of fever or chills or cough. She was noted general weakness and fatigue. Denies symptoms of hemoptysis. Denies symptoms of nausea, vomiting, diarrhea or any abdominal pain. The patient has not been reported any symptoms of headache or diplopia. Remaining systems were reviewed, they were noted all negative. OBJECTIVE: VITAL SIGNS: For the patient which has been recorded shows the temperature noted as normal, respiratory rate of 20, heart rate of 115, blood pressure 111/48-98/62. Intake for the patient was recorded as 998 mL, output 4.725 liters, negative 3.817 liters. Pulse oxygen saturation on 2 liters nasal cannula 98% saturation. HEENT: No acute change. NECK: Supple. CARDIOVASCULAR: S1, S2 audible. LUNGS: The patient with decreased breath sounds noted with improvement in air entry noted significantly. In the last 24 hours there were no crackles heard. There was no wheezing. ABDOMEN: Soft, nontender. EXTREMITIES: Shows significant reduction in edema of the extremities, upper and lower extremities. VISIBLE SKIN: No lesions or rashes. CENTRAL NERVOUS SYSTEM: General weakness. No focal deficit. MUSCULOSKELETAL: Without any acute deformities. LABORATORY DATA: BMP today: BUN 68, creatinine 1.56, glucose 176. Sodium 151, CO2 is 39. The CBC that was done 10.9, hemoglobin 11.3, hematocrit normal, platelet count was normal. Chest x-ray done this morning shows continued improvement in the pleural fluid as well as congestive heart failure finding with marked improvement in the aeration of the lung with the patient was continued. Urine for Legionella antigen and strep antigen both noted negative. IMPRESSION: The arterial blood gas and CPAP yesterday prior to liberation of mechanical ventilation, pH 7.47, PCO2 of 46, PO2 of 77.7 with a CPAP of 5, pressure support of 10 and 30% oxygen. IMPRESSION: 1. The patient with resolving acute severe hypoxic respiratory failure with acute congestive heart failure, systolic dysfunction. 2. Bilateral pleural fluid. 3. Atrial fibrillation with intermittent rapid ventricular response. 4. Stable acute kidney injury with current diuretics as well. [place], [place] PROGRESS NOTE NAME: BERTHA MEJIA UNIT #: [id number] ROOM: [facility] DOCTOR: MICHELLE MUNSON MD,LUKE BIRTHDATE: [birth year] 5. Debility as well. PLAN OF MANAGEMENT: The patient has been started on the regular dialysis. The patient is tolerating without any evidence of dysphagia at this time. Bronchodilator will be continuing. Continue diuretic for the patient. Monitoring the sodium level and other electrolytes closely. Other supportive plan of management, care plan, treatment therapy is in progress. Usual care with additional treatment changes will be ordered based on the progression of the illness. LUKE MARTINEZ MD CM:PNTRANS [id number] LUKE MUNSON MD 05/10/18211 interface
--- NOTE | ~2018-05-04 | PR ---
[place], [place] PROGRESS NOTE NAME: BERTHA MEJIA UNIT #: [id number] ROOM: 523 DOCTOR: MICHELLE MUNSON MD,LUKE BIRTHDATE: [birth year] DOS: 05/17/2018 SUBJECTIVE: The patient was comfortably resting this morning, sitting on the bed. Shortness of breath. Continue to improve gradually. There were no symptoms of fever, chills or hemoptysis noted. Denies symptoms of headache, diplopia, nausea, vomiting, diarrhea, abdominal pain. Denies symptoms of fever or chills or hemoptysis. Remaining systems were reviewed. They were noted all negative. OBJECTIVE: VITAL SIGNS: For the patient which has been recorded shows a normal temperature. The respiratory rate recorded as 20, heart rate of 64, blood pressure 120/52. The pulse oxygen saturation recorded as 98% saturation on 2-1/2-4 liter nasal cannula. HEENT: Examination shows head was atraumatic. Eyes nonicterus. NECK: Supple. CARDIOVASCULAR: S1, S2 is audible. LUNGS: The patient noted decreased breath sounds and crackles in the lower lungs. ABDOMEN: Soft. EXTREMITIES: The patient without any significant edema. VISIBLE SKIN: No lesions or rashes. MUSCULOSKELETAL: The patient noted without acute deformities. CENTRAL NERVOUS SYSTEM: The patient's cranial nerves 2-12 intact. LABORATORY DATA: The chest x-ray that I ordered yesterday was completed at 1:20 p.m. noted with significant worsening of the congestive heart failure with the increasing pleural fluid consistent with the physical exam. CBC of 212. WBC count normal, hemoglobin 10.4, platelet count 192,000. IMPRESSION: 1. Worsening of the congestive heart failure noted, increased pleural fluid, at this time receiving diuretics as Lasix 20 mg daily as ordered by the Cardiology services. 2. Acute respiratory failure. The patient with high oxygen requirement also noted at 4 liters nasal cannula. PLAN OF TREATMENT: The patient will require a diuretic intravenous to the high dose of oral Lasix to improve the congestive heart failure, which has been noted worsening. The assessment and management of congestive heart failure and pleural fluid management, we will leave it to the Cardiology services and their recommendations. Usual care. All other supportive therapy, plan of management care at this time as well. [place], [place] PROGRESS NOTE NAME: BERTHA MEJIA UNIT #: [id number] ROOM: 523 DOCTOR: LUKE MARTINEZ MD BIRTHDATE: [birth year] LUKE MARTINEZ MD CM:PAT [id number] LUKE MUNSON MD 05/17/18 1454 interface
--- NOTE | ~2018-05-04 | EKG ---
[place], [place] ELECTROCARDIOGRAM REPORT NAME: BERTHA MEJIA UNIT #: [id number] ROOM: [facility] DOCTOR: AMAILA DRAFT REPORT BIRTHDATE: [birth year] [facility] Test Date: 2018-05-08 Test Time: 00:28:12 Pat Name: BERTHA MEJIA Department: Room: [place] [address] Gender: F Water Pollution Control Inspector: Alejandrina Mauricio : 1935 Requested By: TRACEY VOGT Order Number: [id number] Reading MD: Tai Mcgarry MD Measurements Intervals [place] Rate: 131 P: IA: QRS: -61 QRSD: 161 T: 149 QT: 376 QTc: 556 Interpretive Statements Atrial fibrillation Left bundle brancy block Compared to ECG 05/05/2018 02:53:36 Atrial fibrillation with RVR has replaced sinus rhythm Electronically Signed On 05-08-2018 15:26:35 PST by Tai Mcgarry MD CM:EKGRPT:ELECTROCARDIOGRAM REPORT [id number] TRACEY TRIMBLE DRAFT REPORT TRACEY VOGT DO
--- NOTE | ~2018-05-04 | PR ---
[place], [place] PROGRESS NOTE NAME: BERTHA MEJIA UNIT #: [id number] ROOM: 524 DOCTOR: LUKE MARTINEZ MD BIRTHDATE: [birth year] DOS: 05/19/2018 PULMONARY PROGRESS NOTE SUBJECTIVE: The patient has been noted comfortable at this time. Continue diuretic therapy. Denies symptoms of fever or chills or hemoptysis. Denies symptoms of sputum expectoration or any cough. OBJECTIVE: VITAL SIGNS: Normal temperature, respiratory rate 22, heart rate 60, blood pressure 111/48. Pulse oxygen saturation of the patient recorded on 2.5 liters nasal cannula at 100% saturation. HEENT: No acute change. NECK: Supple. CARDIOVASCULAR: S1, S2 audible. LUNGS: The patient with crackles still noted in the mid portion of the lungs bilaterally. Breaths are noted decreased in lower portion of lung, partial improvement in aeration noted from yesterday. ABDOMEN: Soft, nontender. Bowel sounds present. EXTREMITIES: The patient was noted without any significant edema at the present time. LABORATORY DATA: BMP this morning for the patient, BUN 23, creatinine 1.35. CO2 37. Potassium was normal. Chest x-ray of the patient that was done, 1 view was reviewed shows resolving congestive heart failure for the patient as well as improving aeration of the lungs was noted consistent with clinical improvement as well. IMPRESSION: Resolving acute congestive heart failure, improving pleural fluid bilaterally. PLAN OF MANAGEMENT: Continue diuretics, bronchodilators, oxygen supplementation requirement also noted decreased. Continue to titrate oxygen supplementation and maintain pulse ox 92% or greater. Usual care. [place], [place] PROGRESS NOTE NAME: BERTHA MEJIA UNIT #: [id number] ROOM: 524 DOCTOR: LUKE MARTINEZ MD BIRTHDATE: [birth year] LUKE MARTINEZ MD CM:PNTRANS [id number] LUKE MUNSON MD 05/19/18 1105 interface
--- NOTE | ~2018-05-04 | PR ---
[place], [place] PROGRESS NOTE NAME: BERTHA MEJIA UNIT #: [id number] ROOM: [facility] DOCTOR: MICHELLE MUNSON MD,LUKE BIRTHDATE: [birth year] DOS: 05/12/2018 SUBJECTIVE: The patient noted comfortable at this time, remains in atrial fibrillation, was planned for cardioversion to be done today for this patient. She denies symptoms of fever or chills or hemoptysis. OBJECTIVE: VITAL SIGNS: Normal temperature, respiratory rate 22, heart rate 57, heart rate of 112, and blood pressure 107/62. The pulse oxygen saturation on 5 liter nasal cannula 96% saturation. HEENT: Examination shows head was atraumatic. Eyes nonicterus. NECK: Supple. CARDIOVASCULAR: S1, S2 is audible. LUNGS: The patient was noted without any wheezing or crackles. ABDOMEN: Soft and nontender. Bowel sounds present. EXTREMITIES: The patient has no acute change. IMPRESSION: The patient with acute congestive heart failure, bilateral pleural fluid, remains stable with acute respiratory failure, status post intubation and mechanical ventilation few days ago. Permanent atrial fibrillation. The patient for elective electrical cardioversion to be done today. PLAN OF TREATMENT: No changes from the Pulmonary standpoint. Proceed with electrical cardioversion as planned. The patient per Cardiology services. Continue diuretics, bronchodilators and respiratory support for this patient as well. Titrate oxygen supplementation, maintain pulse ox saturation 92% or greater. LUKE MARTINEZ MD CM:PNTRANS [id number] LUKE MUNSON MD 05/12/18 1436 interface
--- NOTE | 2018-05-04 19:30 | NUR ---
PHYSICIAN AWARE OF XRAY RESULTS.
--- NOTE | 2018-05-04 19:34 | NUR ---
INTUBATED WITH A 7.5 AND IT IS 24 AT THE LIP.. RESP ARE 23BPM CURRENTLY.. VENT AT 100%
--- NOTE | 2018-05-04 19:42 | NUR ---
PROPOFOL INCREASED TO 25 JUSTA/MIN.
--- NOTE | 2018-05-04 19:53 | NUR ---
BP 96/30. PROPOFOL DECREASED TO 20 JUSTA/MIN.
[2018-05-04 20:12] LABS: BASO # 0.1 10*3/uL (0.0-0.1); BASO % 0.3 % (0.0-1.0); EOS # 0.1 10*3/uL (0.0-0.4); EOS % 0.9 % (1.0-4.0); HEMATOCRIT 37.3 % (37.0-47.0); HEMOGLOBIN 11.2 g/dl (12.0-16.0); LYMPH # 1.2 10*3/uL (1.3-4.4); LYMPH % 8.2 % (27.0-41.0); MEAN CELL VOLUME 105.1 fl (81.0-99.0); MEAN CORPUSCULAR HGB 31.5 pg (27.0-31.0); MEAN PLATELET VOLUME 10.2 fl (9.6-12.3); MONO # 1.1 10*3/uL (0.1-1.0); MONO % 7.6 % (3.0-9.0); NEUT # 12.2 10*3/uL (2.3-7.9); NEUT % 81.5 % (47.0-73.0); PLATELET COUNT AUTOMATED 315 10*3/uL (130-400); RED BLOOD COUNT 3.55 10*6/uL (4.10-5.10); RED CELL DISTRI WIDTH 14.3 % (0-14.5); WHITE BLOOD COUNT 14.9 10*3/uL (4.8-10.8)
[2018-05-04 20:22] LABS: ACT PARTIAL THROMBO TIME 28.5 SECONDS (20.8-31.5); INTERNATIONAL NORM RATIO 1.2 (2.0-3.5)
[2018-05-04 20:29] LABS: ALBUMIN 2.5 gm/dl (3.1-4.5); CREATININE 1.82 mg/dL (0.55-1.02)
[2018-05-04 20:39] LABS: TROPONIN I 0.078 ng/ml (<0.045)
[2018-05-04 21:11] LABS: ABG HCO3 26.5 mmol/l (22-26); ABG O2 SATURATION 99.3 % (95-97); ARTERIAL BLOOD GAS PCO2 53.8 mmHg (35-45); ARTERIAL BLOOD GAS PH 7.309 (7.35-7.45)
--- NOTE | 2018-05-04 21:47 | NUR ---
FAMILY TOOK POSSESSION OF PATIENTS BELONGINGS. SHOES, BLANKET AND WATCH IN A BELONGINGS BAG.
--- NOTE | 2018-05-04 22:15 | NUR ---
A 83 YEAR OLD FEMALE admitted to ICCU, under the services of TANI Cota DO with a diagnosis of HCAP,SEPSIS,BRADYCARDIA. Chief complaint is SOB. Patient arrived via stretcher from ER. Monitor applied. Initial assessment completed. Vital signs taken and recorded. TANI COTA DO notified of admission to the unit. Orders received. See assessment for past medical history, medications and allergies. Patient and/or family oriented to unit. [facility] visitation policy reviewed. Clothing/patient valuable form completed. ELISABETH COOPER
[2018-05-04 23:01] LABS: BILIRUBIN NEGATIVE (NEGATIVE); BLOOD TRACE-INTACT (NEGATIVE); CLARITY SL CLOUDY (CLEAR); COLOR YELLOW (YELLOW); GLUCOSE NEGATIVE (NEGATIVE); KETONE NEGATIVE (NEGATIVE); LEUKO ESTERASE NEGATIVE (NEGATIVE); NITRITE NEGATIVE (NEGATIVE); PH 5.5 (5.0-9.0); SPECIFIC GRAVITY >= 1.030 (1.005-1.030); UROBILINOGEN 0.2 E.U./dl (0.2-1.0)
--- NOTE | 2018-05-04 23:01 | NUR ---
#16 OG PLACED WITH PLACEMENT VERIFIED BY AIR BOLUS/AUSCULTATION OVER EPIGASTRIC AREA. #22 ANGIOCATH PLACED RAN. PT ADEQUATELY SEDATED ON PROPOFOL 25MICS. ANTIBIOTICS ORDERED FROM ER CONTINUE TO INFUSE. DR SUNSHINE IS HERE AND I SHOWED HIM HER DNR ARREST DOCUMENTS FROM 2016. HR IS GOING TO LOBBY TO TALK WITH FAMILY AND DPOA TO CLARIFY AND UPDATE THEM ON PT CONDITION.
--- NOTE | 2018-05-04 23:11 | NUR ---
DR MARTINEZ NOTIFIED OF CONSULT. NO NEW ORDERS RECEIVED.
[2018-05-04 23:16] LABS: BACTERIA TRACE
--- NOTE | 2018-05-04 23:26 | NUR ---
FAMILY HAS GONE HOME. UNABLE TO ASSESS PHARMACY AND GET PAPERWORK SIGNED.
--- NOTE | 2018-05-04 23:35 | NUR ---
TO START OG TUBE FEEDINGS IN AM AFTER CXR CONFIRMATION OF OG PLACEMENT PER VERBAL ORDER BY DR SUNSHINE.
[2018-05-05] VITALS (27 sets, daily range): BP systolic 93–147; BP diastolic 33–72
--- NOTE | 2018-05-05 00:41 | NUR ---
DR SUNSHINE SPEAKS WITH JOAN MEJIA TO OBTAIN CONSENT FOR CENTRAL LINE PLACEMENT.
--- NOTE | 2018-05-05 00:51 | NUR ---
DR SUNSHINE AT BEDSIDE. HE WAS MADE AWARE OF TROPONIN OF 0.180.
--- NOTE | 2018-05-05 01:50 | NUR ---
DR SUNSHINE PLACED LT IJ CENTRAL LINE UNDER STERILE PROCEDURE. AWAITING PCXR TO CONFIRM PLACEMENT OF MLC AND OG.
--- NOTE | 2018-05-05 02:22 | NUR ---
PER DR SUNSHINE, TUBE FEEDINGS TO START IN AM.
--- NOTE | 2018-05-05 03:04 | NUR ---
CXR RESULTS BACK AND CONFIRM PROPER PLACEMENT FOR ETT, OGT, AND MLC.
--- NOTE | 2018-05-05 03:20 | NUR ---
DOPAMINE STARTED AT 5MCG/KG/MIN. BP AT START 104/39 (56) AND HR 40. NOW HR UP TO 52/MIN.
--- NOTE | 2018-05-05 03:28 | NUR ---
HR MUCH IMPROVED IN 70'S.
--- NOTE | 2018-05-05 03:36 | NUR ---
PT RESTLESS, TRYING TO SIT UP AND PULL AT BOTH SOFT WRIST RESTRAINTS. PROPOFOL INCREASED TO 30 MCG.
--- NOTE | 2018-05-05 03:39 | NUR ---
DR SUNSHINE NOTIFIED OF HR 90'S, BP 147/72 AND PT RESTLESSNESS. DECREASED DOPAMINE TO 2MCG/KG/MIN. PROPOFOL IS AT 30MICS.
--- NOTE | 2018-05-05 03:58 | NUR ---
VERSED GIVEN AT 0345 FOR RESTLESSNESS WAS EFFECTIVE. PT TOLERATED TITRATION OF DOPAMINE DOWN TO 2 MICS.
[2018-05-05 04:34] LABS: HEMATOCRIT 38.2 % (37.0-47.0); HEMOGLOBIN 11.5 g/dl (12.0-16.0); MEAN CELL VOLUME 103.2 fl (81.0-99.0); MEAN CORPUSCULAR HGB 31.1 pg (27.0-31.0); MEAN CORPUSCULAR HGB CONC 30.1 g/dl (33.0-37.0); MEAN PLATELET VOLUME 10.5 fl (9.6-12.3); PLATELET COUNT AUTOMATED 288 10*3/uL (130-400); RED CELL DISTRI WIDTH 14.3 % (0-14.5); WHITE BLOOD COUNT 12.1 10*3/uL (4.8-10.8)
[2018-05-05 04:45] LABS: ACT PARTIAL THROMBO TIME 26.7 SECONDS (20.8-31.5); INTERNATIONAL NORM RATIO 1.2 (2.0-3.5)
[2018-05-05 04:56] LABS: ALBUMIN 2.5 gm/dl (3.1-4.5); CREATININE 1.46 mg/dL (0.55-1.02); FREE T4 1.17 ng/dl (0.76-1.46); PHOSPHOROUS 3.3 mg/dL (2.5-4.9); POTASSIUM 4.4 mmol/L (3.5-5.1); TOTAL PROTEIN 6.4 gm/dL (6.4-8.2)
[2018-05-05 04:57] LABS: PLATELET SUFFICIENCY NORMAL (NORMAL); TOTAL CELLS COUNTED 100 #CELLS
[2018-05-05 05:03] LABS: THYROID STIM HORMONE (HS) 4.83 uIU/ml (0.358-4.75)
[2018-05-05 07:02] LABS: ABG BASE EXCESS 0.9 mmol/L (-2.0-2.0); ABG HCO3 25.4 mmol/l (22-26); ABG O2 SATURATION 95.7 % (95-97); ARTERIAL BLOOD GAS PH 7.412 (7.35-7.45); ARTERIAL BLOOD GAS PO2 71.8 mmHg (80-90)
[2018-05-05 07:39] LABS: VITAMIN D, 25-HYDROXY 28.3 ng/mL (30-100)
--- NOTE | 2018-05-05 07:40 | NUR ---
PT AWAKE,ALERT, RESTLESS AND AGITATED. PT ABLE TO OBEY SIMPLE COMMANDS. ORIENTED PT TO ICCU AND HER PLAN OF CARE. IV DIPRIVAN INCREASED TO 35 MICS. WILL CONTINUE TO MONITOR PT'S AGITATION. RESP. RATE 34. POX 88-90%. WILL NOTIFY RESP. THERAPY TO INCREASE FIO2. FINE PB RALES NOTED. PT SUCTIONED FOR SCANT AMOUNT OF CLEAR SPUTUM. ABD. SOFT WITH ACTIVE BOWEL SOUNDS. MIRZA PATENT FOR CLEAR STRAW URINE. 1-2+ LOWER LEG EDEMA NOTED. PT TURNED AND REPOSITIONED FOR COMFORT.
--- NOTE | 2018-05-05 08:00 | NUR ---
IV DIPRIVAN GTT INCREASED TO 40MICS R/T PT CONTINUED AGITATION.
--- NOTE | 2018-05-05 08:15 | NUR ---
IV DIPRIVAN INCREASED TO 45 MICS R/T PT'S CONTINUED AGITATION.
--- NOTE | 2018-05-05 08:22 | NUR ---
PT REMAINS AGITATED AND RESTLESS EVEN AFTER INCREASE IN IV DIPRIVAN TO 50 MICS. IV ERSED GIVEN PER PRN ORDER.
--- NOTE | 2018-05-05 08:40 | NUR ---
PT RESTING BETTER AFTER IV VERSED. ASC NARES AND RAPID FLU SPECIMANS SENT TO LAB PER ORDER. WILL CONTNUE TO MONITOR PT.
--- NOTE | 2018-05-05 09:00 | NUR ---
Final Canoe Inspector in to see patient. She is currently intubated. Discharge plan undecided. Will follow up at a later time.
[2018-05-05] MEDS ORDERED: Atrovent 0.03%30 ML NAS (10:16)
[2018-05-05] MEDS ORDERED: TOPROL XL25 MG PO (10:17)
--- NOTE | 2018-05-05 10:54 | NUR ---
DR BOND IN TO SEE PT. NEW ORDERS RECEIVED.
--- NOTE | 2018-05-05 11:48 | NUR ---
DR MARTINEZ CALLED IN REGARDING PT. NEW ORDERS RECEIVED TO D/C DIPRIVAN GTT AND SEDATE T WITH VERSED 5MG Q1H PRN ONLY. IV DIPRIVAN D/C'D PER ORDER.
--- NOTE | 2018-05-05 12:24 | NUR ---
IV VERSED GIVEN TO PT PER PRN ORDER FOR HER RESTLESSNESS.
--- NOTE | 2018-05-05 12:36 | NUR ---
PT RESTING BETTER. EARLIER PRN VERSED EFFECTIVE.
--- NOTE | 2018-05-05 13:00 | NUR ---
PT'S FAMILY IN TO VISIT. UPDATED THEM ON PT'S CONDITION AND PLAN OF CARE. PT'S BROTHER,JOAN, BROUGHT IN POA PAPERS AND MED LIST FOR PT.
--- NOTE | 2018-05-05 13:12 | NUR ---
PT SITTING STRAIGHT UP IN BED. PT TRYING TO PULL AT ENDOTUBE. PT AWAKE AND ALERT. TRIED TO CALM PT DOWN. FAMILY HAD BEEN AT PT'S BEDSIDE BUT THEY DID LEAVE AND WILL COME BACK LATER. PRN VERSED GIVEN PER PRN ORDER FOR PT'S AGITATION AND RESTLESSNESS.
--- NOTE | 2018-05-05 13:30 | NUR ---
PT RESTING. EARLIER VERSED EFFECTIVE.
--- NOTE | 2018-05-05 14:21 | NUR ---
MEDICATED PT PER PRN ORDER WITH VERSED FOR PT'S AGITATION.
--- NOTE | 2018-05-05 14:40 | NUR ---
PT RESTING. EARLIER VERSED EFFECTIVE.
--- NOTE | 2018-05-05 15:20 | NUR ---
IV DOPAMINE D/C'D. HR 61. BP 131/46. URINE OUTPUT 650CC FOR THE SHIFT. DR JOAN RICHTER.
--- NOTE | 2018-05-05 15:27 | NUR ---
MEDICATED PT PER PRN ORDER WITH VERSED FOR PT'S AGITATION.
--- NOTE | 2018-05-05 15:32 | NUR ---
PT RESTING. EARLIER VERSED EFFECTIVE.
--- NOTE | 2018-05-05 15:50 | NUR ---
PT SITTING UP IN BED AND TRYING TO GET TO ENDOTUBE. EDUCATED PT ON ENDOTUBE AND VENTILATOR AND WHAT COULD POSSIBLY HAPPEN IF PT PULLED ENDOTUBE OUT PREMATURLY. PT CONTINUED TO SIT UP AND TRY TO PULL AT TUBE. ENCOURAGED PT TO RELAX. WILL CONTINUE TO MONITOR PT.
--- NOTE | 2018-05-05 16:42 | NUR ---
PT'S FAMILY IN TO SEE PT. UPDATED THEM ON PT'S CONDITION AND PLAN OF CARE. PT CONTINUES TO REST. EARLIER VERSED EFFECTIVE AT THIS TIME.
--- NOTE | 2018-05-05 17:20 | NUR ---
PT RESTING. NO ACUTE DISTRESS NOTED AT THIS TIME.
--- NOTE | 2018-05-05 20:23 | NUR ---
VERSED GIVEN AT 1900 AND 2009 FOR AGITATION, RESTLESSNESS WAS EFFECTIVE. PT CALM, BODY RELAXED.
--- NOTE | 2018-05-05 22:02 | NUR ---
VERSED GIVEN AT 2119 FOR RESTLESSNESS EFFECTIVE.
[2018-05-06] VITALS: BP 115/36
--- NOTE | 2018-05-06 01:05 | NUR ---
TUBE FEEDING INCREASED TO 40CC/HR. COMPLETE BATH AND BED LINEN CHANGE DONE. PT BECAME RESTLESS DESPITE VERSED GIVEN PRE BATH.
--- NOTE | 2018-05-06 02:58 | NUR ---
DESPITE ATTEMPTS AT REPOSITIONING, RELAXATION, AND SUCTIONING PT, PT REMAINS AGITATED FREQUENTLY, SITTING UP, PULLING AT RESTRAINTS, SHAKING HEAD IN "NO" FASHION. SHE HAS RECEIVED VERSED AT 0130 AND 0225 BUT WILL HAVE EPISODES OF RR 40/MIN. RIGHT NOW HER RR 28/MIN, PULSE OX 100%, AND SHE IS CALM. FIO2 TITRATED DOWN TO 40% BY RESP DEPT.
--- NOTE | 2018-05-06 03:27 | NUR ---
VERSED AT 0225 GIVEN FOR AGITATION AND WAS EFFECTIVE UNTIL 0320. SO, MEDICATED WITH VERSED AT 0325 WELL....EFFECTIVE AT THIS TIME.
[2018-05-06 04:00] VITALS: BP 128/43
[2018-05-06 05:13] LABS: BASO % 0.1 % (0.0-1.0); HEMATOCRIT 35.3 % (37.0-47.0); HEMOGLOBIN 10.5 g/dl (12.0-16.0); LYMPH # 0.4 10*3/uL (1.3-4.4); LYMPH % 3.4 % (27.0-41.0); MEAN CELL VOLUME 102.9 fl (81.0-99.0); MEAN CORPUSCULAR HGB 30.6 pg (27.0-31.0); MEAN CORPUSCULAR HGB CONC 29.7 g/dl (33.0-37.0); MEAN PLATELET VOLUME 10.8 fl (9.6-12.3); MONO # 0.7 10*3/uL (0.1-1.0); MONO % 6.4 % (3.0-9.0); NEUT # 10.1 10*3/uL (2.3-7.9); NEUT % 89.4 % (47.0-73.0); PLATELET COUNT AUTOMATED 273 10*3/uL (130-400); RED BLOOD COUNT 3.43 10*6/uL (4.10-5.10); RED CELL DISTRI WIDTH 14.4 % (0-14.5); WHITE BLOOD COUNT 11.3 10*3/uL (4.8-10.8)
[2018-05-06 05:41] LABS: CREATININE 1.66 mg/dL (0.55-1.02); POTASSIUM 3.8 mmol/L (3.5-5.1)
[2018-05-06 08:00] VITALS: BP 128/43
[2018-05-06 08:03] LABS: ABG BASE EXCESS -2.7 mmol/L (-2.0-2.0); ABG HCO3 22.4 mmol/l (22-26); ABG O2 SATURATION 99.1 % (95-97); ARTERIAL BLOOD GAS PCO2 47.6 mmHg (35-45); ARTERIAL BLOOD GAS PH 7.307 (7.35-7.45)
--- NOTE | 2018-05-06 09:00 | NUR ---
Supervisor Solder Making in to see patient. She is currently intubated. Discharge plan undecided. Will follow up at a later time.
--- NOTE | 2018-05-06 10:00 | NUR ---
I/O D/C'DINTACT FROM LEFT LOWER LEG. PT TOLERATED PROCEDURE WELL.
[2018-05-06 12:00] VITALS: BP 132/40
--- NOTE | 2018-05-06 12:48 | NUR ---
DR DOMINGUEZ IN TO SEE PT. UPDATED HIM ON PT'S CONDITIONA ND PLAN OF CARE. NEW ORDERS RECEIVED TO INCREASE PT'S IV LASIX.
--- NOTE | 2018-05-06 12:50 | NUR ---
PRN VERSED GIVEN FOR PT'S AGITATION.
--- NOTE | 2018-05-06 13:14 | NUR ---
PT RESTING. EARLIER VERSED EFFECTIVE.
--- NOTE | 2018-05-06 14:11 | NUR ---
MEDICATED PT PER PRN ORDER WITH VERSED FOR PT'S AGITTION.
--- NOTE | 2018-05-06 14:37 | NUR ---
PHYSICAL THERAPY Nursing screen received. PAtient intubated currently. Not medically appropriate. Thank you. Yuliana Kaur,PT
--- NOTE | 2018-05-06 14:45 | NUR ---
PT RESTING. EARLIER VERSED EFFECTIVE.
[2018-05-06 16:00] VITALS: BP 130/39
--- NOTE | 2018-05-06 16:00 | NUR ---
MEDICATED PT PER PRN ORDER WITH VERSED FOR PT'S AGITATION.
--- NOTE | 2018-05-06 16:15 | NUR ---
PT RESTING. VERSED EFFECTIVE.
--- NOTE | 2018-05-06 16:35 | NUR ---
PT SITTING UP IN BED AND TRYING TO PULL AT ENDOTUBE. NOT TIME FOR VERSED. TRIED TO CALM AND REASSURE PT.
--- NOTE | 2018-05-06 17:00 | NUR ---
MEDICATED PT PER PRN ORDER WITH VERSED FOR PT'S CONTINUED AGITATION.
--- NOTE | 2018-05-06 17:18 | NUR ---
PT RESTING AT PRESENT TIME. EARLIER VERSED EFFECTIVE AT THIS TIME.
--- NOTE | 2018-05-06 18:40 | NUR ---
MEDICATED PT PER PRM ORDER WITH VERSED FOR PT'S AGITATION.
--- NOTE | 2018-05-06 18:51 | NUR ---
PT RESTING. EARLIER VERSED EFFECTIVE.
[2018-05-06 20:00] VITALS: BP 134/36
--- NOTE | 2018-05-06 22:40 | NUR ---
PATIENT BECAME AGITATED ON VENT TRYING TO PULL OUT ET TUBE AND OG TUBE PATIENT WAS GIVEN VERSED BUT DOES NOT SEEM TO BE HELPING.
[2018-05-07] VITALS: BP 135/43
[2018-05-07 04:00] VITALS: BP 128/46
[2018-05-07 06:18] LABS: HEMATOCRIT 33.7 % (37.0-47.0); HEMOGLOBIN 10.6 g/dl (12.0-16.0); MEAN CELL VOLUME 100.3 fl (81.0-99.0); MEAN CORPUSCULAR HGB 31.5 pg (27.0-31.0); MEAN CORPUSCULAR HGB CONC 31.5 g/dl (33.0-37.0); MEAN PLATELET VOLUME 10.6 fl (9.6-12.3); PLATELET COUNT AUTOMATED 296 10*3/uL (130-400); RED BLOOD COUNT 3.36 10*6/uL (4.10-5.10); RED CELL DISTRI WIDTH 14.6 % (0-14.5); WHITE BLOOD COUNT 15.9 10*3/uL (4.8-10.8)
[2018-05-07 06:32] LABS: CREATININE 1.66 mg/dL (0.55-1.02); POTASSIUM 3.7 mmol/L (3.5-5.1)
--- NOTE | 2018-05-07 06:42 | NUR ---
PATIENT HAS NEEDED VERSED ALMOST EVRY HOUR ON THE HOUR TO PREVENT SELF EXTUBATION THROUGH OUT THE NIGHT. PATIENT BECOMES RESTLESS HITTING HER HANDS OFF THE SIDE RAILS OF THE BED AND LIFTING HER HEAD AND TRYING TO GRAB AT IT WITH HER HANDS AND SHAKING HER HEAD NO.
[2018-05-07 07:26] LABS: PLATELET SUFFICIENCY NORMAL (NORMAL); TOTAL CELLS COUNTED 100 #CELLS
[2018-05-07 07:26] LABS: ABG BASE EXCESS 2.8 mmol/L (-2.0-2.0); ABG HCO3 27.7 mmol/l (22-26); ABG O2 SATURATION 98.2 % (95-97); ARTERIAL BLOOD GAS PCO2 46.9 mmHg (35-45); ARTERIAL BLOOD GAS PH 7.389 (7.35-7.45); ARTERIAL BLOOD GAS PO2 89.4 mmHg (80-90)
[2018-05-07 08:00] VITALS: BP 134/46
--- NOTE | 2018-05-07 10:09 | NUR ---
PATIENTS BROTHER AT BEDSIDE PATIENT DOES SEEM TO BE CALM AT THIS TIME.
[2018-05-07 12:00] VITALS: BP 132/47
--- NOTE | 2018-05-07 12:07 | NUR ---
PATIENT RESTLESS AT THIS TIME. BANGING HANDS ON SIDERAILS. MEDICATED WITH VERSED PER PRN ORDER AND IMMEDIATELY EFFECTIVE.
--- NOTE | 2018-05-07 13:30 | NUR ---
PATIENT RESTLESS AT THIS TIME. ATTEMPTING TO SIT UP AND BANGING HANDS ON SIDERAILS. MEDICATED WITH VERSED PER PRN ORDER AND IMMEDIATELY EFFECTIVE.
[2018-05-07 16:00] VITALS: BP 130/40
--- NOTE | 2018-05-07 17:11 | NUR ---
PATIENT RESTLESS AND TAPING ON SIDERAILS. MEDICATED WITH VERSED PER PRN ORDER AND IMMEDIATELY EFFECTIVE. WILL CONTINUE TO MONITOR.
[2018-05-07 20:00] VITALS: BP 125/44
[2018-05-08] VITALS: BP 110/54
--- NOTE | 2018-05-08 00:20 | NUR ---
CALLED DOCTOR VOGT PATIENT HEART RATE WENT FROM 80'S TO 140'S PATIENT IS WAS IN AFIB . PATIENT ON A VENT AND TRASHING AROUND. DOCTOR TORIE CAME UP AND PUT IN ORDERS. VERSED WAS THEN GIVEN TO CALM PATIENT AGAI. PATIENT HAS ONLY CALMED DOWN FOR AT MOST AN HOUR ON THE DIPROVAN . NURSING STAFF HAS TRIED OTHER WAYS TO PROVIDE COMFORT FROM CHANGEING POSITIONS TO TALKING TO THE PATIENT TO REPORIENT HER TO PLACE AND TIME AND WHAT WAS GOING ON. PATIENT WOULD CALM FOR SHORTS PERIODS OF TIME AND THEN WOULD THEN TRY AND REACH TUBE AND PULL IT OUT.
[2018-05-08 02:15] LABS: CREATININE 1.64 mg/dL (0.55-1.02); POTASSIUM 3.6 mmol/L (3.5-5.1)
--- NOTE | 2018-05-08 03:22 | NUR ---
WHEN PATIENT S WAS ASKED IF SHE WAS IN PAIN PATIENT WOULD KNOD HER HEAD YES WHEN I ASKED IF SHE WAS HAVINF CHEST PAIN SHE SAID YES . DOCTOR TORIE NOTIFIED AND PRN MORPHINE WAS GIVEN PATIE NT IS RESTING AT THIS TIME.
[2018-05-08 04:00] VITALS: BP 126/51
--- NOTE | 2018-05-08 04:07 | NUR ---
PATIENT HEART RTAE IS CURRENTLY 120'S ON CARDIZEM DRIP AT 10ML/HR. PATIENT RESTING QUIETLY AT THIS TIME AND NOT TRYING TO PULL TUBE OUT.
[2018-05-08 06:04] LABS: CREATININE 1.69 mg/dL (0.55-1.02); POTASSIUM 3.5 mmol/L (3.5-5.1)
[2018-05-08 06:06] LABS: BASO % 0.1 % (0.0-1.0); HEMATOCRIT 37.6 % (37.0-47.0); HEMOGLOBIN 11.4 g/dl (12.0-16.0); LYMPH # 0.6 10*3/uL (1.3-4.4); LYMPH % 3.5 % (27.0-41.0); MEAN CELL VOLUME 101.9 fl (81.0-99.0); MEAN CORPUSCULAR HGB 30.9 pg (27.0-31.0); MEAN CORPUSCULAR HGB CONC 30.3 g/dl (33.0-37.0); MEAN PLATELET VOLUME 10.8 fl (9.6-12.3); MONO # 1.4 10*3/uL (0.1-1.0); NEUT # 13.7 10*3/uL (2.3-7.9); NEUT % 86.1 % (47.0-73.0); PLATELET COUNT AUTOMATED 310 10*3/uL (130-400); RED BLOOD COUNT 3.69 10*6/uL (4.10-5.10); RED CELL DISTRI WIDTH 14.6 % (0-14.5); WHITE BLOOD COUNT 15.9 10*3/uL (4.8-10.8)
[2018-05-08 08:00] VITALS: BP 95/45
--- NOTE | 2018-05-08 09:02 | NUR ---
VERSED NEEDED FOR COOPERATION AND SEDATION
--- NOTE | 2018-05-08 10:44 | NUR ---
VERSED NEEDED FOR ADDITIONAL SEDATION
--- NOTE | 2018-05-08 11:38 | NUR ---
DR ARZOLA UPDATED AND WILL SEE PT LATER, CONTINUE EFRAÍN RICHARDSON AT 10
[2018-05-08 12:00] VITALS: BP 102/47
--- NOTE | 2018-05-08 13:56 | NUR ---
DR MARTINEZ HER, PT PLACED ON BIPAP, ABGS IN 2 HOURS FOR POSS EXTUBATION
[2018-05-08 15:55] LABS: ABG BASE EXCESS 8.7 mmol/L (-2.0-2.0); ABG HCO3 33.5 mmol/l (22-26); ABG O2 SATURATION 97.7 % (95-97); ARTERIAL BLOOD GAS PCO2 46.3 mmHg (35-45); ARTERIAL BLOOD GAS PH 7.47 (7.35-7.45); ARTERIAL BLOOD GAS PO2 77.7 mmHg (80-90)
[2018-05-08 16:00] VITALS: BP 107/51
--- NOTE | 2018-05-08 16:34 | NUR ---
BLOOD GASES CALLED TO DR MARTINEZ PT EXTUBATED TO ,TOLERATED WELL
--- NOTE | 2018-05-08 17:31 | NUR ---
awake and alert tolerating extubation amiodarone drip infusing at 1mg/min family at bedside
[2018-05-08 20:00] VITALS: BP 122/47
[2018-05-09] VITALS: BP 111/48
[2018-05-09 04:00] VITALS: BP 98/62
[2018-05-09 04:57] LABS: BASO % 0.2 % (0.0-1.0); EOS # 0.1 10*3/uL (0.0-0.4); EOS % 0.5 % (1.0-4.0); HEMATOCRIT 38.7 % (37.0-47.0); HEMOGLOBIN 11.3 g/dl (12.0-16.0); LYMPH # 1.4 10*3/uL (1.3-4.4); LYMPH % 12.4 % (27.0-41.0); MEAN CELL VOLUME 102.9 fl (81.0-99.0); MEAN CORPUSCULAR HGB 30.1 pg (27.0-31.0); MEAN CORPUSCULAR HGB CONC 29.2 g/dl (33.0-37.0); MONO # 1.5 10*3/uL (0.1-1.0); MONO % 13.5 % (3.0-9.0); NEUT # 7.9 10*3/uL (2.3-7.9); NEUT % 72.4 % (47.0-73.0); PLATELET COUNT AUTOMATED 275 10*3/uL (130-400); RED BLOOD COUNT 3.76 10*6/uL (4.10-5.10); RED CELL DISTRI WIDTH 14.8 % (0-14.5); WHITE BLOOD COUNT 10.9 10*3/uL (4.8-10.8)
[2018-05-09 05:15] LABS: CREATININE 1.56 mg/dL (0.55-1.02); PHOSPHOROUS 3.4 mg/dL (2.5-4.9); POTASSIUM 3.5 mmol/L (3.5-5.1)
--- NOTE | 2018-05-09 05:15 | NUR ---
PATIENT CAN NOT SWALLOW PILLS PATIENT WAS EXTUBATED 05/08/18
--- NOTE | 2018-05-09 07:30 | NUR ---
SITTING UPRIGHT IN BED, COOPERATIVE, RESP EASY ON 2LNC, TAKING ICE CHIPS/POPSCILES WITH ANY COUGHING/CHOKING OR SIGNS OF ASPIRATION, AMIODARONE DRIP AT 0.5MG/MIN FOR AF, [facility] CENTRAL LINE INTACT, MIRZA FOR CLEAR YELLOW, HANDS PUFFY BUT IMPROVING
[2018-05-09 08:00] VITALS: BP 98/52
--- NOTE | 2018-05-09 09:00 | NUR ---
Refrigeration Brazer/Solderer in to talk to patient. Patient states lives at home alone with her family checking in on her. There are 0 steps in the home. Physician: Dr. Vázquez Pharmacy: [facility] services: has had [facility] in the past but not currently Patient's level of ADLs: MINIMAL ASSIST Patient has working utilities: yes DME: cane, O2 @ 4L nc, portable O2 tanks, nebulizer, O2 supplier [employer] Follow-up physician's appointment after d/c: will be made by the hospitalist nurse director upon discharge Does patient want to access PORTAL?: no Discharge plan discussed with patient. She lives at home alone with her family checking in on her. She states she is independent in her ADLs and ambulates with a cane. Discussed short term SNF and home health care services. She has not been out of bed. Asked hospitalist nurse director for PT/OT consults. Discharge plan undecided at this time. CLAIRE CHENEY
--- NOTE | 2018-05-09 10:30 | NUR ---
UP TO RECLINER MAX ASSIST OF 3
--- NOTE | 2018-05-09 10:30 | NUR ---
UP TO RECLINER X 23 MAX ASSIST
[2018-05-09 12:00] VITALS: BP 92/40
--- NOTE | 2018-05-09 14:14 | NUR ---
AMIODARONE BOLUS TAKEN FROM SECOND BAG
--- NOTE | 2018-05-09 15:15 | NUR ---
Occupational Therapy evaluation completed in ICCU with full eval to follow. Precautions include ICCU, mcclellan,O2,IV UE,max +2 bed mobility, transfers, dependent in ADLs. Patient is high complexity level 78625 via chart review, testing and evaluation.Recommend OT per pOC and LTACH v.s SNF. THank you for this referral. Sharla Silverman OTR/L
--- NOTE | 2018-05-09 15:24 | NUR ---
PHYSICAL THERAPY PAtient evaluated in ICCU, full evaluation to follow. Continue with PT as per plan of care with fall, max(A) x 2-3, 02, acute debility and just off vent precautions, MAy require LTAC versus SNF, pending progress. Patient is high complexity via chart review, tests and evaluation: 34793. Thank you for this referral. Yuliana Kaur,PT
[2018-05-09 16:00] VITALS: BP 113/68
--- NOTE | 2018-05-09 19:54 | NUR ---
PT. RESTING IN BED. [facility] MLC INTACT. AMIODORONE DRIP INFUSING ORDERED, SITE VIA PROXIMAL PORT OF MLC. LUNGS DIMINISHED BILAT, PULSE OX 90% ON 2L NC. ABDOMEN SOFT, NONDISTENDED AND NORMO. NO PERIPHERAL EDEMA NOTED. PT. [place]. EVIN JACQUES RN
[2018-05-09 20:00] VITALS: BP 113/68
[2018-05-10] VITALS: BP 125/52
[2018-05-10 04:00] VITALS: BP 92/50
[2018-05-10 05:46] LABS: ALBUMIN 2.6 gm/dl (3.1-4.5); CREATININE 1.67 mg/dL (0.55-1.02); PHOSPHOROUS 3.6 mg/dL (2.5-4.9); POTASSIUM 3.6 mmol/L (3.5-5.1); TOTAL PROTEIN 5.9 gm/dL (6.4-8.2)
[2018-05-10 06:20] LABS: BASO % 0.2 % (0.0-1.0); EOS # 0.1 10*3/uL (0.0-0.4); EOS % 0.5 % (1.0-4.0); HEMATOCRIT 37.2 % (37.0-47.0); HEMOGLOBIN 11.3 g/dl (12.0-16.0); LYMPH # 1.1 10*3/uL (1.3-4.4); LYMPH % 10.1 % (27.0-41.0); MEAN CELL VOLUME 101.1 fl (81.0-99.0); MEAN CORPUSCULAR HGB 30.7 pg (27.0-31.0); MEAN CORPUSCULAR HGB CONC 30.4 g/dl (33.0-37.0); MEAN PLATELET VOLUME 11.2 fl (9.6-12.3); MONO # 1.3 10*3/uL (0.1-1.0); MONO % 12.4 % (3.0-9.0); NEUT # 7.9 10*3/uL (2.3-7.9); NEUT % 75.3 % (47.0-73.0); NUCLEATED RED BLOOD CELL 0.2 % (0.0-0.0); PLATELET COUNT AUTOMATED 283 10*3/uL (130-400); RED BLOOD COUNT 3.68 10*6/uL (4.10-5.10); WHITE BLOOD COUNT 10.5 10*3/uL (4.8-10.8)
[2018-05-10 08:00] VITALS: BP 118/66
--- NOTE | 2018-05-10 08:20 | NUR ---
PT HR 110'S. AM TOPROL GIVEN EAERLY.
--- NOTE | 2018-05-10 08:40 | NUR ---
PT RESTING. RESP EASY. IV AMIODARONE GTTT CONTINUES. PT DENIES C/O AT HTIS TIME. WILL CONTINUE TO MONITOR PT.
--- NOTE | 2018-05-10 08:40 | NUR ---
PHYSICAL THERAPY Patient seen this am 1:1 for therapy visit and was supine in bed upon therapist arrival. Patient presented with continuous O2-2.5L via NC and IV treatment voicing no new c/o's at this time. Patient transfers supine to sit EOB with MAX A x 2, tolerating 6 minutes static seated balance / core strengthening, CGA, demonstrating "slouched" shoulder / forward head posture. Patient fatigues quickly and needed repeated verbal / tactile cues to correct POOR upright posture. Patient returned to supine in bed with MAX A x 2 and remained with call light and tray table under ICCU nursing Supervision. Will continue per POC as tolerated, total treatment time 14 minutes. Alejandro Sanford, ASSISTANT BOOKKEEPER
--- NOTE | 2018-05-10 08:42 | NUR ---
DR TELLEZ IN TO SEE PT. UPDATED HIM ON PT'S CONDITION.
--- NOTE | 2018-05-10 09:00 | NUR ---
Self Defense Instructor in to see patient. Discussed LTAC and she is agreeable. When given a list of facilities she chose [facility] in [place]. category planner notified.
--- NOTE | 2018-05-10 09:20 | NUR ---
OT NOTE Pt was seen this A.M. 1:1 for 24 minute OT session. Upon arrival pt was supine in bed, pt identified by name and and had no complaints at this time. Pt presented to therapy with continous 2.5L-O2 via NC which she reamined on throughout entire session and IV treatment. At rest pt's heart rate was 112 bpm and SpO2 88%. Pt transferred supine to sit EOB with maxA X 2. While sitting EOB challenged pt's sitting tolerance while maintaining good head control and pt was able to tolerate aprox 30 seconds before requiring verbal prompt due to head dropping. Throughout activity pt's SpO2 dropped to 86%, educated pt on breathing techniques and pt had good carry over with visual instructions, coming back up to 90% within aprox 27 seconds. While sitting EOB requested for pt to wash her face for increased I in self care tasks, pt was able to complete the task with Anna for set-up of task and inital start. Pt became very fatigued requiring min-modA for sitting balance resulting in transferring pt back into bed sit to supine with maxA X 2. There she was left with call light in hand, tray table in place, and ICCU nurse notified. Continue with rec D/C plan to LTACH versus SNF. MEGAN Iglesias/[place]
--- NOTE | 2018-05-10 10:34 | NUR ---
DR BOTELLO IN TO SEE PT.
[2018-05-10 12:00] VITALS: BP 116/54
--- NOTE | 2018-05-10 12:00 | NUR ---
LASIX 40MG IV GIVEN PER ONE TIME ORDER.
--- NOTE | 2018-05-10 13:44 | NUR ---
Patient referral faxed to [facility] for review. [facility] is unable to accept this patient as she is out of network. Faxed referral to [facility] in [place] because they are in contract network with patients insurance, waiting for review.
--- NOTE | 2018-05-10 14:20 | NUR ---
DR FRANCO NOTIFIED OF URINE OUTPUT OF 125CC FOR 7-3 SHIFT. BLADDER SCAN SHOWED >400CC. DR FRANCO ORERED TO STRAIGHT CATH PT.
--- NOTE | 2018-05-10 15:12 | NUR ---
[facility] has reviewed this patient and will be coming to the hospital for an on site. They will start precert today.
--- NOTE | 2018-05-10 15:28 | NUR ---
STRAIGHT CATHED FOR 400CC STRAW COLORED URINE. PT TOLERATED PROCEDURE WELL.
[2018-05-10 16:00] VITALS: BP 125/58
--- NOTE | 2018-05-10 16:30 | NUR ---
BURKE MEDEL HERE FROM [facility] TO SEE PT. HE WILL BE BACK WEDNESDAY TO GET AN UPDATED ON PT AND DISCHARGE PLANS.
--- NOTE | 2018-05-10 17:12 | NUR ---
GAVE PT'S BROTHER BURKE, FROM [facility], CARD FOR ANY QUESTIONS FAMILY MAY HAVE R/T DISCHARGE.
--- NOTE | 2018-05-10 19:56 | NUR ---
PT. RESTING IN BED, SLEEPING INTERMITTENTLY. [facility] MLC INTACT, AMIORDARONE CONTINUES VIA PROX PORT, ALL PORTS PATENT. LUNGS DIMINISHED BILAT, PULSE OX 92% ON 3L NC. ABDOMEN SOFT, NONDISTENDED AND NORMO. NO PERIPHERAL EDEMA NOTED. RESP. EASY AND REG, NO DISTRESS. EVIN JACQUES RN
[2018-05-10 20:00] VITALS: BP 107/51
--- NOTE | 2018-05-10 21:13 | NUR ---
PT. GIVEN NORCO ORDERED FOR GENERALIZED ACHES AND PAINS. XANAX WAS STATED TO BE EFFECTIVE.
[2018-05-11] VITALS: BP 111/60
[2018-05-11 04:00] VITALS: BP 116/64
[2018-05-11 04:34] LABS: BASO % 0.1 % (0.0-1.0); EOS # 0.2 10*3/uL (0.0-0.4); EOS % 1.7 % (1.0-4.0); HEMATOCRIT 37.8 % (37.0-47.0); HEMOGLOBIN 11.5 g/dl (12.0-16.0); LYMPH # 1.7 10*3/uL (1.3-4.4); MEAN CELL VOLUME 99.7 fl (81.0-99.0); MEAN CORPUSCULAR HGB 30.3 pg (27.0-31.0); MEAN CORPUSCULAR HGB CONC 30.4 g/dl (33.0-37.0); MEAN PLATELET VOLUME 10.8 fl (9.6-12.3); MONO # 1.3 10*3/uL (0.1-1.0); MONO % 11.4 % (3.0-9.0); NEUT # 8.1 10*3/uL (2.3-7.9); NEUT % 70.3 % (47.0-73.0); PLATELET COUNT AUTOMATED 269 10*3/uL (130-400); RED BLOOD COUNT 3.79 10*6/uL (4.10-5.10); WHITE BLOOD COUNT 11.5 10*3/uL (4.8-10.8)
[2018-05-11 04:57] LABS: CREATININE 1.8 mg/dL (0.55-1.02); PHOSPHOROUS 4.4 mg/dL (2.5-4.9); POTASSIUM 3.7 mmol/L (3.5-5.1)
--- NOTE | 2018-05-11 05:14 | NUR ---
PT. BLADDER SCANNED FOR INABILITY TO URINATE IN SPITE OF BEING PLACED ON BEDPAN MULTIPLE TIMES. BLADDER SCANNED FOR >[address] SUNSHINE NOTIFIED, ORDERS RECEIVED. EVIN JACQUES RN
--- NOTE | 2018-05-11 05:26 | NUR ---
PT. STRAIGHT CATHED FOR 700CC'S OF CLEAR YELLOW URINE, TOLERATED WELL. EVIN JACQUES RN
--- NOTE | 2018-05-11 07:40 | NUR ---
TOPROL GIVEN AT THIS TIME FO RPT'S INCREASED HR IN 120'S. DR WARD AND DR VITAL SPOKE WITH PT REGARDING POSSIBLE CARDIOVERSION TODAY AND NEED FOR NPO STATUS UNTIL DR DOMINGUEZ STATES WHETHER OR NOT SHE WILL BE CARDIOVERTED TODAY. PT VERBALIZED UNDERSTANDING.
[2018-05-11 08:00] VITALS: BP 113/57
--- NOTE | 2018-05-11 09:00 | NUR ---
It Architecture Consultant in to see patient. No new needs or request at this time. When medically stable and auth is obtained she will be discharged to [facility]. land planner following.
--- NOTE | 2018-05-11 09:00 | NUR ---
OT NOTE Pt was seen this A.M. 1:1 for 15 minute OT session. Upon arrival pt was supine in bed, pt identified by name and . Pt presented to therapy with continous 3L-O2 via NC which she remained on throughout entire session. At rest pt's heart rate was 108 bpm and SpO2 94%. Pt transferred supine to sit EOB with maxA X 2. While sitting EOB challenged pt's sitting balance for increased I and enhanced safety, pt was able to maintain F-/F sitting balance throughout. Pt required verbal prompts to hold her head up after aprox 30 seconds. Pt then completed multiple sit to stand transfers from bed level with modA X 2 for increased I in functional transfers, pt was able to tolerate aprox 10-15 seconds at a time before sitting due to fatigue. Pt then transferred sit to supine with maxA x 2. There she was left with call light in hand, tray table in place, bed rails up, and ICCU nurse notified. Continue with rec D/C plan to LTACH versus SNF. MEGAN Iglesias/Keyon
--- NOTE | 2018-05-11 09:34 | NUR ---
PHYSICAL THERAPY Patient presented to therapy in supine wit hhead of bed elevated and spO2 of 3 liters. Patient has no complaints at this time. Patient was identified by name and . Patient performed supine to sitting at EOB with MAX A X 2. Patient sat at EOB for 10 minutes total with MIN A X 1 to CGA to prevent forwards lean. Patient transferred STS with MOD A X 2. Patient performed standing tolerance 3 Xsfor < 20 SECONDS each time with MOD A X 2. Patient performed seated bilateral LE ther ex x 10 reps each plane of movement in order to improve patient's functional mobility. Patient transferred back to supine in bed with MAX A X 2. Patient was left in supine in bed with call light within reach, connected to wall outlet with 3 liters of spO2 via nasal canula, and in care of ICCU RN NURSE. Patient's O2 SATS dropped to 77% at one point in sitting and STSs and recovered back to 92% within 1 minute. Patient was 1:1 with this MODEL AND MOLD MAKER PLASTER for 23 minutes total. JOSEPH MACIAS MODEL AND MOLD MAKER PLASTER
[2018-05-11 12:00] VITALS: BP 120/56
--- NOTE | 2018-05-11 12:05 | NUR ---
PT RESTING. NO ACUTE DISTRESS NOTED AT THIS TIME.
--- NOTE | 2018-05-11 13:40 | NUR ---
DULCOLAX SUPPOSITORY AND COLACE GIVEN PER ORDER FOR PT'S CONSTIPATION.
--- NOTE | 2018-05-11 15:19 | NUR ---
DR DOMINGUEZ IN TO SEE PT. PLAN FOR CARDIOVERSION TOMORROW. DR FRANCO TO COORDINATE WITH ANESTHESIA.
[2018-05-11 16:00] VITALS: BP 113/48
--- NOTE | 2018-05-11 17:09 | NUR ---
VERY SMALL RESULTS FROM EARLIER SUPPOSITORY. DR JOAN PIKE.
[2018-05-11 20:00] VITALS: BP 114/55
--- NOTE | 2018-05-11 20:44 | NUR ---
PT HAD A LG BROWN SOFT BM. COMPLETE BATH DONE WITH HEBICLENS AND BED LINEN CHANGE DONE. PT TOLERATED WELL.
[2018-05-12] VITALS (10 sets, daily range): BP systolic 107–151; BP diastolic 38–73
--- NOTE | 2018-05-12 01:22 | NUR ---
NPO AFTER MIDNIGHT. PT DOZES AT INTERVALS.
--- NOTE | 2018-05-12 03:42 | NUR ---
PT AWAKE. ASSESSMENT COMPLETED. PT ASSISTED TO SIDE AND PROPPED WITH WEDGE.
[2018-05-12 05:04] LABS: HEMOGLOBIN 11.5 g/dl (12.0-16.0); MEAN CELL VOLUME 98.1 fl (81.0-99.0); MEAN CORPUSCULAR HGB 30.5 pg (27.0-31.0); MEAN CORPUSCULAR HGB CONC 31.1 g/dl (33.0-37.0); MEAN PLATELET VOLUME 10.8 fl (9.6-12.3); NUCLEATED RED BLOOD CELL 0.2 % (0.0-0.0); PLATELET COUNT AUTOMATED 264 10*3/uL (130-400); RED BLOOD COUNT 3.77 10*6/uL (4.10-5.10); RED CELL DISTRI WIDTH 15.1 % (0-14.5); WHITE BLOOD COUNT 14.1 10*3/uL (4.8-10.8)
[2018-05-12 05:21] LABS: ALBUMIN 2.5 gm/dl (3.1-4.5); CREATININE 1.94 mg/dL (0.55-1.02); POTASSIUM 3.7 mmol/L (3.5-5.1)
[2018-05-12 05:27] LABS: TOTAL PROTEIN 5.7 gm/dL (6.4-8.2)
[2018-05-12 06:25] LABS: PLATELET SUFFICIENCY NORMAL (NORMAL); TOTAL CELLS COUNTED 100 #CELLS
--- NOTE | 2018-05-12 06:38 | NUR ---
PT AWAKE. REPOSITIONED. IN HIGH CHRISTINE'S POSITION NOW. REMAINS NPO. HR 106/MIN AND PULSE OX 96% ON NC4.
--- NOTE | 2018-05-12 08:00 | NUR ---
TOPROL AND IV LASIX GIVEN PRIOR TO SURGICAL PROCEDURE FAMILY IN TO SEE PT
--- NOTE | 2018-05-12 08:42 | NUR ---
TO OR VIA BED FOR CARDIOVERSION
--- NOTE | 2018-05-12 09:00 | NUR ---
Lumpia Wrapper Maker in to see patient. She is currently not in her room. She went down for cardioversion. Will follow up at a later time.
--- NOTE | 2018-05-12 09:30 | NUR ---
PHYSICAL THERAPY Patient was out of her room this am for surgery and not available for therapy. Will continue per POC as able. Alejandro Sanford, GAMBRELER
--- NOTE | 2018-05-12 10:25 | NUR ---
OT treatment attempted however patient was out of room in surgery. Continue POC. MEGAN Arvizu/Enzo
--- NOTE | 2018-05-12 10:40 | NUR ---
RETURNED FROM OR, PT IN NSR RATE OF 50-60 BROTHER IN TO VS
--- NOTE | 2018-05-12 12:00 | NUR ---
Log Sorting Supervisor in to see patient. No new needs or request at this time. When medically stable and auth is received she will be discharged to [facility]. convention planner following.
--- NOTE | 2018-05-12 16:20 | NUR ---
UP TO RECLINER X 2 ASSIST AND USE OF WALKER
--- NOTE | 2018-05-12 16:56 | NUR ---
OT DAILY NOTE PT THIS AFTERNOON FOR BEDSIDE OT. PT WAS SITTING UPRIGHT IN BEDSIDE SHAIR WHEN GUZMAN ARRIVED. PT DENIES PAIN BUT STATES SHE IS TIRED AND WEAK. PT WAS ABLE TO TOLERATE SITTING UP IN CHAIR DURING ENTIRE TREATMENT AND MAINTAINED GOOD HEAD CONTROL. PT DECLINED TRANSFER BACK TO BED STATING SHE IS THE FIRST TIME SHE HAS BEEN UP. GUZMAN FACILITATED BUE AROM EXERCISES WITH NO RESISTANCE IN ALL PLANES WITH VISUAL DEMONSTRATION AND TACTILE CUES FOR CORRECT FORM AND TECHNIQUE FOR MAXIMUM BENEFIT. PT TOLRATED 10-15 REPS TO INCREASE STRENGTH, ENDURANCE AND ROM FOR ADLS AND FUNCTIONAL TRANSFERS. CONTINUE WITH OT PLAN OF CARE ESTABLISHED. TOTAL TREATMENT TIME: 15 MINUTES MEGAN LUTHER/Keyon
--- NOTE | 2018-05-12 19:01 | NUR ---
CHART CHECK COMPLETE.
--- NOTE | 2018-05-12 19:30 | NUR ---
PT HAD BEEN IN CHAIR. COMPLETE BATH AND BED LINEN CHANGE DONE. RETURNED TO BED AND PROPPED ON RT SIDE TO PREVENT SKIN BREAKDOWN. NO DISTRESS NOTED. REMAINS SINUS MILAGROS.
--- NOTE | 2018-05-12 21:26 | NUR ---
LIP BALM APPLIED TO DRIED LIPS. PT REMAINS APPROPRIATE.
[2018-05-13] VITALS: BP 119/42
--- NOTE | 2018-05-13 05:17 | NUR ---
PT VOIDED APPROXIMATELY 200 CC ORVILLE URINE ON BEDPAN. PT IS AWAKE, ALERT, ORIENTED, AND PLEASANT.
[2018-05-13 05:50] LABS: ALBUMIN 2.2 gm/dl (3.1-4.5); CREATININE 1.68 mg/dL (0.55-1.02); PHOSPHOROUS 3.2 mg/dL (2.5-4.9)
[2018-05-13 06:12] LABS: BASO % 0.2 % (0.0-1.0); EOS # 0.3 10*3/uL (0.0-0.4); EOS % 2.8 % (1.0-4.0); HEMOGLOBIN 9.7 g/dl (12.0-16.0); LYMPH # 1.2 10*3/uL (1.3-4.4); LYMPH % 11.4 % (27.0-41.0); MEAN CELL VOLUME 100.3 fl (81.0-99.0); MEAN CORPUSCULAR HGB 30.4 pg (27.0-31.0); MEAN CORPUSCULAR HGB CONC 30.3 g/dl (33.0-37.0); MEAN PLATELET VOLUME 11.5 fl (9.6-12.3); MONO # 1.4 10*3/uL (0.1-1.0); MONO % 13.3 % (3.0-9.0); NEUT # 7.5 10*3/uL (2.3-7.9); NEUT % 70.9 % (47.0-73.0); NUCLEATED RED BLOOD CELL 0.4 % (0.0-0.0); PLATELET COUNT AUTOMATED 199 10*3/uL (130-400); RED BLOOD COUNT 3.19 10*6/uL (4.10-5.10); RED CELL DISTRI WIDTH 14.8 % (0-14.5); WHITE BLOOD COUNT 10.6 10*3/uL (4.8-10.8)
[2018-05-13 08:00] VITALS: BP 128/77
--- NOTE | 2018-05-13 08:37 | NUR ---
PHYSICAL THERAPY Patient presented to therapy in supine with spO2 via nasal canula at 4 liters, pulse at 54, and B/P at 128/44, and O2 SAT at 91%. Patient has no complaints. Patient was identified by name and . Patient transferred supine to sitting at EOB with MIN A X 2, with one instance when she needed 2 inch scoot with MOD A X 2. Patient was MIN A X 2 90% of the supine to sitting at EOB transfer. Patient sat at EOB without assistance for 2 minutes. Patient's O2 SAT measured and recorded as 86%. Patient transferred STS with MIN A X 2 to W/W with verbal cues for pushing off bed with UEs and locking knees upon standing. Patient performed SPT to bedside chair with CGA X 1 with verbal cues for locking knees out , side-stepping, backing up to chair, and hands back on armrests of chair upon sitting. Patient sat in chair with CGA A X 1 with too of quick descent. Patient's O2 SAT was recorded and measured at 80% briefly and then increasing to 88% within 1 minute. Patient then increased ot 90%. Nurse aware of patient's transfer assistance level and O2 SAT dropping to 80% during transfer. Patient was left in sitting position in bedside chair with call light within reach, respitory therapist present, and NUrse monitoring vitals. Patient was 1:1 with this POWDER ROOM ATTENDANT for 20 minutes total. JOSEPH MACIAS POWDER ROOM ATTENDANT
--- NOTE | 2018-05-13 10:30 | NUR ---
Spoke to Clement at [facility] regarding precert. He states the insurance has denied her LTAC stay. A peer to peer can be completed by calling [facility] at [phone]. Hospitalist nurse director notified. Dr. Carter request SNF stay. Spoke to Clement at [phone] regarding no peer to peer to be completed and is now looking at SNF.
--- NOTE | 2018-05-13 10:45 | NUR ---
Liquid Natural Gas Plant Operator in to see patient. Discussed [facility] not able to take patient due to insurance denying her stay at an LTAC. Discussed short term rehab and informed the only facility with beds currently is [facility] in [place] and she is agreeable. nurse discharge planner notified.
[2018-05-13 12:00] VITALS: BP 143/40
--- NOTE | 2018-05-13 12:13 | NUR ---
All local snf's are out of network for this insurance. [facility] is full. Referral faxed to [facility]. Spoke with Insurance rep who stated since they denied LTACH on this patient they will work to expidite snf precert. waiting on auth.
--- NOTE | 2018-05-13 13:04 | NUR ---
OT Daily Note Pt seen this ate for 1:1 bedside treatment. Pt was in bed reading with 3L NC oxygen. Pt denies pain, but says she is having a hard time breathing. Pt performed supine to sit at the EOB with assist to bring BLE out of bed. Pt sat at EOB with CGA for balance for 2 minutes. GUZMAN provided verbal cues for proper breathing techniques. STS from EOB with MOD A x 2, verbal cue for hand placement to push up from seated surface and for upright posture. Static stand at walker for less than 2 minutes before requiring seated rest break at EOB. Pt cued again for proper breathing technique in through nose and out through mouth. Max A for sit to supine to bring BLE into bed and for positioning. At bed level, pt completed shoulder press, forward punches, bicep curls and shoulder abduction, 15x each with visual demonstration and verbal cues for correct form and technique for maximum benefit of exercise to increase strength and endurance for ADLs and functional mobility. Continue with OT plan of care to increase strength and endurance, activitiy tolerance and increase independence in transfers. Pt remained in bed with NC oxygen in place, call light and tray with in reach. Total treatment time: 25 minutes. MEGAN Nino/Keyon
--- NOTE | 2018-05-13 13:52 | NUR ---
Patient accepted to [facility] and rehab, hospital exemption completed. Patient requires a precert which has been initiated. Waiting for auth.
--- NOTE | 2018-05-13 14:20 | NUR ---
PT TRANSFERED TO 5E VIA BED. PT REPORT GIVEN TO RECEIVING NURSE.
--- NOTE | 2018-05-13 14:25 | NUR ---
Pt arrived to floor from ICCU. Oriented to room. Assisted to bedpan and voided 200 cc of urine. denies pain. No sob noted. O2 intact at 4L.
[2018-05-13 16:00] VITALS: BP 135/56
--- NOTE | 2018-05-13 19:45 | NUR ---
PT. USED BEDPAN VOIDED 300CC ORVILLE COLORED URINE.
[2018-05-13 20:00] VITALS: BP 131/45
[2018-05-14] VITALS: BP 130/44
--- NOTE | 2018-05-14 00:31 | NUR ---
24 HR chart check completed.
--- NOTE | 2018-05-14 04:20 | NUR ---
PT. PLACED ON BEDPAN AND VOIDED SMALL AMOUNT ABOUT 100CC. BLADDER SCANNED AND VOLUME GREATER THAN 550CC. STRAIGHT CATH'D PT. FOR 575CC ORVILLE AND STRONG SMELLING. HEALING REDNESS NOTED AROUND PERIAREA AND UPPER INNER THIGHS. PT. TOLERATED WELL.
[2018-05-14 06:30] LABS: HEMATOCRIT 34.8 % (37.0-47.0); HEMOGLOBIN 10.5 g/dl (12.0-16.0); MEAN CELL VOLUME 100.9 fl (81.0-99.0); MEAN CORPUSCULAR HGB 30.4 pg (27.0-31.0); MEAN CORPUSCULAR HGB CONC 30.2 g/dl (33.0-37.0); MEAN PLATELET VOLUME 11.1 fl (9.6-12.3); NUCLEATED RED BLOOD CELL 0.2 % (0.0-0.0); PLATELET COUNT AUTOMATED 209 10*3/uL (130-400); RED BLOOD COUNT 3.45 10*6/uL (4.10-5.10); RED CELL DISTRI WIDTH 14.8 % (0-14.5); WHITE BLOOD COUNT 10.6 10*3/uL (4.8-10.8)
[2018-05-14 06:31] LABS: ALBUMIN 2.4 gm/dl (3.1-4.5); CREATININE 1.46 mg/dL (0.55-1.02); POTASSIUM 3.7 mmol/L (3.5-5.1); TOTAL PROTEIN 5.6 gm/dL (6.4-8.2)
[2018-05-14 07:11] LABS: TOTAL CELLS COUNTED 100 #CELLS
[2018-05-14 07:12] LABS: PLATELET SUFFICIENCY NORMAL (NORMAL); POLYCHROMASIA SLIGHT
[2018-05-14 07:55] VITALS: BP 136/62
[2018-05-14 12:00] VITALS: BP 121/45
[2018-05-14 16:00] VITALS: BP 125/54
[2018-05-14 20:00] VITALS: BP 124/50
--- NOTE | 2018-05-14 20:25 | NUR ---
PT. ON BEDPAN. WILL BLADDER SCAN AFTER THIS TO CHECK FOR RESIDUAL.
--- NOTE | 2018-05-14 20:30 | NUR ---
24 HR chart check completed.
--- NOTE | 2018-05-14 21:30 | NUR ---
BLADDER SCANNED FOR 171CC. NO NEED FOR STRAIGHT CATH AT THIS TIME.
[2018-05-15] VITALS: BP 144/57
--- NOTE | 2018-05-15 02:27 | NUR ---
PT. SITTING UP AT SIDE OF BED. PT. FELT WARM TEMP 98.6 ORALLY. WILL CONT. TO MONITOR. PT. ON BEDPAN VOIDED 50CC MEASURABLE AND SMALL AMOUNT VOIDED ON PAD OF BED. BED LINEN CHANGED. BLADDER SCANNED PT. LESS THAN 250 CC REQUIRED TO STRAIGHT CATH. WILL CONT. TO MONITOR.
--- NOTE | 2018-05-15 04:45 | NUR ---
BLADDER SCANNED FOR OVER 370CC. STRAIGHT CATHERIZED USING STERILE TECHNIQUE PER POLICY/PROCEDURE FOR 500CC DARK ORVILLE URINE AND ONE VERY SMALL BLOOD CLOT NOTED WHEN CATHETER INTRODUCED. CHEEKS FLUSH PT. SOB WITH O2 IN USE. TEMP. CHECKED 98.6. BED LINENS CHANGED. PATIENT REPOSITIONED AND SAID SHE'S FEELING MORE COMFORTABLE.
[2018-05-15 08:00] VITALS: BP 118/64
[2018-05-15 12:00] VITALS: BP 125/50
--- NOTE | 2018-05-15 13:52 | NUR ---
DR. RAMIREZ IN TO SEE PATIENT RE: PLAN OF CARE, OK TO DISCHARGE FROM CARDIAC STANDPOINT, PER .
[2018-05-15 16:00] VITALS: BP 119/50
--- NOTE | 2018-05-15 16:43 | NUR ---
BLADDER SCANNED FOR 194ML URINE, NO URGE TO VOID, PER PATIENT. WILL CONTINUE TO MONITOR FOR RETENTION AND ENCOURAGE VOIDING ON BEDSIDE COMMODE AT REGULAR INTERVALS.
[2018-05-15 20:00] VITALS: BP 121/59
--- NOTE | 2018-05-15 23:20 | NUR ---
PT RESTING IN BED WITH EYES CLOSED. AWAKENS EASILY. RESP-EASY AND REGULAR. OXYGEN IN USE. CALL RAFI CARPIO. SEE SHIFT ASSESSMENT.
[2018-05-16] VITALS: BP 131/47
--- NOTE | 2018-05-16 04:00 | NUR ---
PT SLEEPING IN BED. RESP-EASY AND REGULAR. OXYGEN IN USE. CALL LIGHT IN REACH. BED ALARM ON.
--- NOTE | 2018-05-16 05:30 | NUR ---
PT ASSISTED UP TO BSC AND BACK TO BED. BSG-127, SEE EMAR. BLADDER SCAN DON BEFORE VOIDING WAS-127. AFTER VOIDING BLADDER SCANNED FOR 211. NO C/O AT THIS TIME. CALL LIGHT IN REACH. BED ALARM ON.
[2018-05-16 08:00] VITALS: BP 118/56
--- NOTE | 2018-05-16 08:10 | NUR ---
OT NOTE Pt was seen this A.M. 1:1 for 20 minute OT session. Upon arrival pt was supine in bed, pt identified by name and and had no complaints at this time. Pt presented to therapy with continous 4L-O2 via NC which she remained on throughout entire session. Pt transferred supine to sit EOB with Anna for assist with UB and good use of bed rail. While sitting EOB challenged pt's sitting balance needed for increased I and enhanced safety, pt was able to maintain F+ sitting balance with supervision. Pt was able to maintain good head control throughout with no verbal or tactile prompts to correct. Pt completed sit to stand transfer from bed level with modA and use of w/w for UE support. Stand pivot completed from bed to recliner with Anna and use of w/w. Pt then completed BUE towel exercises over all planes with emphasis on triceps for 1 X 10 to increase UE strength needed for increased I in self care tasks and functional transfers. There she was left reclined in recliner with call light in hand, tray table in place, and body alarm on for safety. Continue with rec D/C plan to LTACH. MEGAN Iglesias/Keyon
--- NOTE | 2018-05-16 08:45 | NUR ---
PHYSICAL THERAPY Patient seen this am 1;1 for therapy visit and was supine in bed upon therapist arrival. Patient was very pleasant this morning on continuos O2-4L via NC. Patient transfers supine to sit EOB, MIN A, tolerating several minutes EOB sit, CGA, demonstrating increased activity tolerance and improved seated posture. Patient performed sit to stand transfer Min A, v/c needed for safe hand placement and completed SPT, use of wh walker, Min A, including 4-5 steps to bedside chair. Patient dmeonstrated mild fatigue after brief seated rest completed seated marching, LAQ x 20 reps each without c/o. Patient remained in bedside chair with call light, tray table, telephone and body alarm for safety. Will continue per POC as tolerated, total treatment time 14 minutes. Alejandro Sanford, IRRIGATION TAX ASSESSOR COLLECTOR
--- NOTE | 2018-05-16 11:22 | NUR ---
PATIENT ASSISTED TO BEDSIDE COMMODE AT THIS TIME. PATIENT URINATED 150 CC AT THIS TIME. URINE DARK WITH STRONG ODOR.
[2018-05-16 12:00] VITALS: BP 115/54
--- NOTE | 2018-05-16 14:15 | NUR ---
OT NOTE Pt was seen this A.M. 1:1 for 20 minute OT session. Upon arrival pt was sitting upright in recliner, pt identified by name and . Pt had no complaints at this time and presented to therapy with continous 4L-O2 via NC which she remained on throughout entire session. While sitting upright in recliner pt completed UB bathing with set-upA. Pt then completed sit to stand transfer from chair level with Anna and education on proper hand placement for increased I in functional transfers. Stand pivot completed chair to bedside commode with Anna and use of w/w for UE support. Pt was then left sitting upright in recliner with call light in hand, tray table in place, and body alarm on for safety. Continue with rec D/C plan to LTACH. MEGAN Iglesias/Keyon
--- NOTE | 2018-05-16 14:22 | NUR ---
PHYSICAL THERAPY Patient seen this pm 1:1 for therapy visit and was sitting up in bedside chair upon therapist arrival. Patient reports no new c/o's at this time and performed sit to stand transfer with Min/CGA. Patient ambulates with use of wh walker, 35' x 1, ad vee in room with extended O2 hose and demonstrated increased SOB. Patient needed v/c for purse lip breathing technique and needed several brief standing rest breaks to continue. Patient returned to bedside chair and remained with call light, tray table, telephone and body alarm for safety. Will continue per POC as tolerated, total treatment time 14 minutes. Alejandro Sanford, DIRECTOR INDUSTRIAL NURSING
--- NOTE | 2018-05-16 15:13 | NUR ---
Junior Technical Writer in to see patient and family at the bedside. Family is questioning discharge and explained her discharge is waiting on precert from her insurance company to go to [facility]. Family will transport patient on discharge. When medically stable and auth is received patient will be discharged to [facility]. operations planner following.
[2018-05-16 16:00] VITALS: BP 137/46
--- NOTE | 2018-05-16 19:00 | NUR ---
PT AWAKE SITTING IN RECLINER CHAIR IN ROOM DURING BEDSIDE SHIFT REPORT. CALL LIGHT IN REACH.
[2018-05-16 20:00] VITALS: BP 114/44
--- NOTE | 2018-05-16 22:35 | NUR ---
24 HR chart check completed.
[2018-05-17] VITALS: BP 120/52
[2018-05-17 06:59] LABS: BASO % 0.2 % (0.0-1.0); EOS # 0.2 10*3/uL (0.0-0.4); EOS % 2.3 % (1.0-4.0); HEMATOCRIT 33.4 % (37.0-47.0); HEMOGLOBIN 10.4 g/dl (12.0-16.0); LYMPH # 1.3 10*3/uL (1.3-4.4); LYMPH % 14.1 % (27.0-41.0); MEAN CELL VOLUME 99.4 fl (81.0-99.0); MEAN CORPUSCULAR HGB CONC 31.1 g/dl (33.0-37.0); MEAN PLATELET VOLUME 10.9 fl (9.6-12.3); MONO # 1.1 10*3/uL (0.1-1.0); MONO % 11.6 % (3.0-9.0); NEUT # 6.6 10*3/uL (2.3-7.9); NEUT % 70.9 % (47.0-73.0); PLATELET COUNT AUTOMATED 192 10*3/uL (130-400); RED BLOOD COUNT 3.36 10*6/uL (4.10-5.10); RED CELL DISTRI WIDTH 15.3 % (0-14.5); WHITE BLOOD COUNT 9.2 10*3/uL (4.8-10.8)
[2018-05-17 08:00] VITALS: BP 122/56
--- NOTE | 2018-05-17 09:00 | NUR ---
Smasher in to see patient. Discussed with patient her discharge to [facility] is still in precert status and she verbalized an understanding. Family will transport patient on discharge. When medically stable and auth is received patient will be discharged to [facility]. digital sales planner following.
--- NOTE | 2018-05-17 09:55 | NUR ---
PT HELPED TO BSC VIA WALKER WITH MINIMAL ASSISTANCE. PT HELPED TO CHAIR. CHAIR ALARM PLACED ON. CALL ANDREA WITHIN REACH.
--- NOTE | 2018-05-17 11:25 | NUR ---
PHYSICAL THERAPY Patient seen this am 1:1 for therapy visit and was sitting up in bedside chair upon therapist arrival. Patient was very pleasant, presenting with continuos O2-2L via NC and appeared a bit "sluggish". Patient performed seated B LE therex, all planes x 10 reps each to promote LE ROM / strengthening, followed by sit to stand transfer, Min A x 1. Patient ambulates with use of wh walker, 45'x 1, MIN/CGA, demonstrating "slouched" upright posture, decreaed stride and increased SOB. Patient received v/c for purse lip breathing technique and returned to bedside chair with increased fatigue. Patient also recorded 84% SpO2, HR 92 bpm folloiwng gait and needed approx 1 minute seated rest to return to baseline Spo2 95%, HR 69 bpm. Patient remained in bedside chair with call light, tray table, telephone and body alarm for safety. Will continue per POC as tolerated, total treatment time 23 minutes. Alejandro Sanford, SUPERVISOR WEBBING
--- NOTE | 2018-05-17 11:25 | NUR ---
OT NOTE Pt was seen this A.M. 1:1 for 25 minute OT session. Upon arrival pt was sitting upright in recliner, pt identified by name and . Pt had complaints of increased fatigue and SOB, SpO2 98%. Pt presented to therapy with continous 2L-O2 via NC which she remained on throughout entire session. Pt completed UB bathing while seated with set-upA. Extra time given throughout due to slow rate of performance. Throughout educated pt on breathing techniques and correcting her posture. Pt completed sit to stand transfer from chair level with modA and education on proper hand placement for increased I and improved technique. Challenged pt's static standing tolerance needed for increased I in self care tasks and functional transfers and she was able to tolerate aprox 2 minutes before sitting due to fatigue. Pt maintained good head control throughout and was left sitting upright in recliner with call light in hand, tray table in place, and body alarm on for safety. Continue with rec D/C plan to LTACH. MEGAN Iglesias/Keyon
[2018-05-17 12:00] VITALS: BP 108/62
--- NOTE | 2018-05-17 13:24 | NUR ---
Shift chart check completed.
--- NOTE | 2018-05-17 14:03 | NUR ---
Metal Ceiling Builder called to room to discuss discharge planning. Spoke to family at the bedside and patient regarding waiting on approval from her insurance company to be able to send her to [facility]. They verbalized an understanding. conservation planner following.
--- NOTE | 2018-05-17 14:18 | NUR ---
OT NOTE Pt was seen this P.M. 1:1 for second OT session consisting of 18 minutes. Upon arrival pt was sitting upright in recliner, pt identified by name and and had no complaints at this time. Pt completed BUE towel exercises over all planes of motion for 1 X 10 to increase UE strength needed for increased I in self care tasks and functional transfers. Pt was left sitting upright in recliner with call light in hand, tray table in place, and body alarm activated for safety. Continue with rec D/C plan to LTACH. MEGAN Iglesias/Keyon
--- NOTE | 2018-05-17 14:26 | NUR ---
PHYSICAL THERAPY Patient seen this pm 1:1 for therapy visit and was sitting up in bedside chair upon therapist arrival. Patient presented with continuous O2-2L via NC and had several family visitors present as well. Patient voices no c/o's pain, transfering sit to stand Min/CGA, demonstrating improved transfer technique with forward upon initial rise. Patient demonstrates 50% compliance with transfer technique to avoid falling backwards into chair. Patient ambulates with wh walker, 40'x 1, CGA, navigating ad vee in room with extended O2 hose. Patient needed v/c for improved safety awareness with both O2 cord and walker to prevent bumping into furniture, along with avoiding getting tangled up in, stepping on or tripping over O2 cord. Patient returned to bedside chair with mild fatigue and remained with call light, tray table, telephone and body alarm for safety. Will continue per POC as tolerated, total treatment time 13 minutes. Alejandro Sanford, ANALYSIS MGR
--- NOTE | 2018-05-17 15:30 | NUR ---
ASSUMED CARE OF PATIENT. ASSISTED PATIENT OUT OF CHAIR ONTO BEDSIDE COMMODE. PT BACK IN CHAIR WITH BODY ALARM ATTACHED. DENIES ANY NEEDS AT THIS TIME.
[2018-05-17 16:00] VITALS: BP 122/53
--- NOTE | 2018-05-17 16:45 | NUR ---
SPOKE TO [facility] AUTH HAS BEEN APPROVED. PT OK TO GO THERE.
--- NOTE | 2018-05-17 16:47 | NUR ---
DR ADAME AWARE OF APPROVAL AND NEED FOR D/C ORDER
--- NOTE | 2018-05-17 16:48 | NUR ---
DR ADAME CALLED BACK, STATES SHE WILL GO TOMORROW
--- NOTE | 2018-05-17 16:55 | NUR ---
NUMBER FOR REPORT FOR [facility]; [phone] [facility] AWARE PT NOT GOING UNTIL TOMORROW
--- NOTE | 2018-05-17 17:30 | NUR ---
PER DR ADAME, PT CAN GO TOMORROW AFTER LUNCH. CALLED AND SPOKE TO PT BROTHER JOAN AND MADE HIM AWARE
--- NOTE | 2018-05-17 19:00 | NUR ---
PT RESTING QUIETLY IN BED W/EYES CLOSED DURING BEDSIDE SHIFT REPORT. NO S/S OF DISTRESS NOTED. CALL LIGHT IN REACH.
[2018-05-17 20:00] VITALS: BP 132/97
[2018-05-18] VITALS: BP 114/72
--- NOTE | 2018-05-18 | NUR ---
PA NOTIFIED THIS NURSE OF PT SAT OF 73%. PT RESPS SHALLOW AND TACHYPNIC. O2 INCREASED TO 4LNC-HF AND PT SAT UP IN BED. SAT INCREASED TO LOW-MID 80%. PT NEEDING TO URINATE. ASSISTED TO BSC. SAT INCREASED TO 90%. ASSISTED BACK TO BED. RESP NOTIFIED. SAT DECREASED TO 80% RESP INCREASED O2 TO 10LNC-HF. WILL CONTINUE TO MONITOR.
--- NOTE | 2018-05-18 00:15 | NUR ---
DR. Astrid GAMINO NOTIFIED OF PT'S DECREASING SAT. TO COME SEE PT AND BIPAP ORDERED.
--- NOTE | 2018-05-18 00:24 | NUR ---
PT RESTING QUIETLY IN BED. SPEAKS W/OUT RESP DISTRESS. DENIES ANY INCREASE IN SOB. SAT 97%. RESP IN TO PLACE PT ON BIPAP.
--- NOTE | 2018-05-18 03:28 | NUR ---
24 HR chart check completed.
[2018-05-18 06:56] LABS: CREATININE 1.27 mg/dL (0.55-1.02); POTASSIUM 3.7 mmol/L (3.5-5.1)
--- NOTE | 2018-05-18 07:56 | NUR ---
Contacted [facility] regarding precert, still waiting on auth.
[2018-05-18 08:02] VITALS: BP 122/66
--- NOTE | 2018-05-18 08:30 | NUR ---
Er Tech in to see patient. Discussed with patient her discharge to [facility] is still in precert status and she verbalized an understanding. Family will transport patient on discharge. When medically stable and auth is received patient will be discharged to [facility]. marine air ground task force planners following.
--- NOTE | 2018-05-18 09:03 | NUR ---
updated clincals and therapy notes faxed to [facility], notified of need for Bipap, settings and order included in fax. Still waiting on auth.
--- NOTE | 2018-05-18 10:40 | NUR ---
PHYSICAL THERAPY Patient seen this am 1:1 for therapy visit and was sitting up in bedside chair upon therapist arrival. Patient presented with continuous O2-3.5L via NC and demonstrated several bouts of increased lethargic behaviour. Patient was very pleasant this morning and performed seated B LE therex, all planes, x 15 reps each to improve LE ROM / Strength. Patient c/o of mild R knee pain, 3/10 following LAQ ex and stated she was feeling a little tired. Patient reamained in bedside chair with LE's elevated, call light, tray table, telephone and body alarm for safety. Will continue per POC as tolerated, total treatment time 16 minutes. Alejandro Sanford, MANAGER PLAN
--- NOTE | 2018-05-18 10:50 | NUR ---
OT NOTE Pt was seen this A.M. 1:1 for 20 minute OT session. Upon arrival pt was sitting upright in recliner, pt identified by name and . Pt had complaints of increased fatigue and weakness and presented to therapy with continous 3.5L-O2 via NC which she remained on throughout entire session. Pt completed oral hygiene while sitting in recliner after set-upA. She then completed BUE towel exercises over all planes of motion for 1 X 10 to increase UE strength needed for increased I in self care tasks and functional transfers. Pt required a rest break between each rep due to fatigue. Pt was able to maintain good head control throughout entire session with no verbal or tactile prompts throughout. Pt was left sitting upright in recliner with call light in hand, tray table in place, and body alarm on for safety. Continue with rec D/C plan to [facility]. MEGAN Iglesias/[place]
[2018-05-18 12:00] VITALS: BP 138/56
--- NOTE | 2018-05-18 12:57 | NUR ---
Received auth for patient to go to [facility]. They have also received a bipap machine for this patient. Patient is ok to go today or tomorrow if medically stable for discharge.
--- NOTE | 2018-05-18 13:40 | NUR ---
PHYSICAL THERAPY Patient was seen this pm 1:1 for therapy visit and was sitting up in bedside chair upon therapist arrival. Patient presented with continuous O2-3.5L via NC and requested transfer back to bed due to feeling very tired from not sleeping well last night. Patient transfers sit to stand from low chair surface, Min/Mod A and while standing needed use of BSC. Patient performed SPT with use of wh walker, Min A, demonstrating unsteady step sequence. OT asssistant arrived and assisted patient with all self care issues and once completed, therapist assisted patient back to bed with Min A, SPT, including several forward, side steps to EOB sit. Patient returned to supine in bed, Min A and remained with call light, tray table, cell phone and bed alarm for safety. Will continue per POC as tolerated, total treatment time 13 minutes. Alejandro Sanford, TRAUMA NURSE
--- NOTE | 2018-05-18 13:42 | NUR ---
OT NOTE Pt was seen this P.M. 1:1 for second OT session consisting of 12 minutes. Upon arrival pt was sitting upright in recliner, pt identified by name and and had complaints of fatigue at this time. Pt completed sit to stand transfer from chair level with modA due to low surface, followed by stand pivot to bedside commode with CGA and use of w/w for UE support. Pt transferred on to bedside commode with CGA, clothing management completed with Anna, toilet hygiene completed with modA, and she then transferred off bedside commode with Anna. Pt transferred to EOB where she transferred sit to supine with Anna for assist with BLE and maxA X 2 for repositioning in bed. Pt was left supine in bed with call light in hand, tray table in place, and bed alarm activated for safety. Continue with POC as able. MEGAN Iglesias/[place]
[2018-05-18 16:00] VITALS: BP 136/46
[2018-05-18 20:00] VITALS: BP 131/59
[2018-05-19] VITALS: BP 111/48
--- NOTE | 2018-05-19 | NUR ---
PT REFUSED BIPAP
[2018-05-19 06:43] LABS: CREATININE 1.35 mg/dL (0.55-1.02); POTASSIUM 3.7 mmol/L (3.5-5.1)
--- NOTE | 2018-05-19 07:19 | NUR ---
Patient received auth for [facility], her auth is only good until 4 PM today 05/19/18. If patient is medically stable for discharge, [facility].
[2018-05-19 08:30] VITALS: BP 122/60
--- NOTE | 2018-05-19 09:00 | NUR ---
PT SITTING UP IN BED, ALERT ORIENTED AND PLEASANT MOOD. NO S/S OF DISTRESS. NO COMPLAINTS VOICED. RESPIRATIONS EASY AND UNLABORED. AM MEDICATION TAKEN WITH EASE. ALL NEEDS MET. CALL LIGHT IN REACH.
--- NOTE | 2018-05-19 10:00 | NUR ---
Automatic Coin Machine Mechanic in to see patient. Discussed with patient her discharge to [facility] is ready when the physician feels she is medically stable and she verbalized an understanding. Family will transport patient on discharge. special events planner following.
--- NOTE | 2018-05-19 11:05 | NUR ---
PHYSICAL THERAPY Patient seen this am 1:1 for therapy visit and was sitting up in bedside chair following OT behavioral modification assistant vist. Patient presented with continuous O2-3L via NC and reports feeling a little tired since just recently walking to bathroom for patient care. Patient agreed to and performed seated B LE therex, all planes, x 20 reps each to increase LE strength, followed by several sit to stand transfers from low chair surface, Min A, deomonstrating slow rise to upright position. Patient also demonstrates forward head posture while upright and needed v/c in attempt to improve this posture. Patient returned to bedside chair and remained with call light, tray table, telephone and body alarm for safety. Will continue per POC as tolerated, total treatment time 15 minutes. Alejandro Sanford, RENEWABLE ENERGY ENGINEER
--- NOTE | 2018-05-19 11:07 | NUR ---
OT NOTE Pt was seen this A.M. 1:1 for 24 minute OT session. Upon arrival pt was sitting upright in recliner, pt identified by name and . pt had no complaints at this time and presented to therapy with continous 3.5L-O2 via NC which she remained on throughout entire session. Pt completed sit to stand transfer from chair level with Anna. Functional mobility completed to bedside commode with CGA and use of w/w for UE support. Clothing management completed with Anna and toilet hygiene completed with Anna. Pt then compelted functional mobility to the bathroom where she sat sink side while completing UB/LB bathing with set-upA. Donned and doffed gown with set-upA. Pt maintained good head control throughout entire grooming tasks. Functional mobility then completed back to recliner where she was left sitting upright with call light in hand, tray table in place, and body alarm on for safety. Continue with rec D/C plan to [facility]. MEGAN Iglesias/[place]
[2018-05-19] MEDS ORDERED: Humalog SQ (11:44)
[2018-05-19] MEDS ORDERED: Ipratropium Brom3 ML NEB (11:44)
[2018-05-19] MEDS ORDERED: KLOR-CON M2020 ME1 PO (11:44)
[2018-05-19] MEDS ORDERED: FUROSEMIDE20 M1 PO (11:44)
[2018-05-19 12:00] VITALS: BP 129/56
--- NOTE | 2018-05-19 12:01 | NUR ---
[facility] Transportation was scheduled for 1:30 with [facility], however when I called the family to notify them they insisted on transporting the patient themselves. He stated they have her oxygen tank and will be here by 1:30 to transport her. I cancelled ambulance transport. Notified NH, chief passenger ship steward/stewardess/nursing and patients person to notify
--- NOTE | 2018-05-19 12:04 | NUR ---
PHYSICAL THERAPY CO-SIGN I approve of the Phyical Therapy notes written above. VALERIA MORA PT
--- NOTE | 2018-05-19 13:47 | NUR ---
LEFT IJ REMOVED AT THIS TIME, MEASURING 20.5 CM. PT TOLERATED WELL. PRESSURE DRESSING APPLIED. DISCHARGE SUMMARY REVIEWED WITH PATIENT. REPORT CALLED TO NURSE GARY AT [facility]. FAMILY AT BEDSIDE AND ARE TRANSPORTING PT VIA THEIR CAR TO [place]. FAMILY HAS PORTABLE OXYGEN TANK IN HAND IN ORDER TO PROVIDE PT WITH ADEQUATE SUPPLEMENTAL OXYGEN.
--- NOTE | 2018-05-19 13:52 | NUR ---
Discharge instructions reviewed with patient/family. Patient receptive and verbalizes understanding. Follow-up care arranged. Written instructions given to patient/family. ASHLEY BASSETT
--- NOTE | 2018-05-20 07:51 | NUR ---
OCCUPATIONAL THERAPY CO-SIGN I approve of the Occupational Therapy notes written above. NAKUL MORA OTR/[place]
[2018-06-05] MEDS ORDERED: LEVO-T25 MCG PO (23:31)
[2018-06-05] MEDS ORDERED: LASIX20 MG PO (23:33)
[2018-06-05] MEDS ORDERED: TOUJEO SOL300 UNIT/1 SQ (23:35)
[2018-06-06] MEDS ORDERED: OXYGEN NAS (02:04)
[2018-06-13] MEDS ORDERED: LEVAQUIN500 M2 PO (08:24)
[2018-06-13] MEDS ORDERED: METOPROLOL SUCC25 M2 PO (08:24)
[2018-06-13] MEDS ORDERED: MUCINEX ER600 MG PO (08:24)
[2018-07-22] MEDS ORDERED: LEVOTHYROXINE75 MCG PO (10:51)
[2018-07-22] MEDS ORDERED: POTASSIUM CHLO20 ME4 PO (10:52)
[2018-07-22] MEDS ORDERED: TOPROL XL25 MG PO (10:53)
[2018-07-23] MEDS ORDERED: LEVAQUIN750 M1 PO (13:29)
== END 2018-05-19 14:00 | disposition other institution (70) | DRG 871 ==
LOC: ED 19:16 → ICCU 20:47 → 5E 20:47 → EDHOLD 20:47 → ICCU 21:03 → 5E 05-13 14:16
PROVIDERS: Family Medicine; Internal Medicine; Internal Medicine Cardiovascular Disease; Internal Medicine Critical Care Medicine; Internal Medicine Nephrology; Student in an Organized Health Care Education/Training Program; ADMIT Internal Medicine
DX: A41.9 Sepsis, unspecified organism (principal); R65.21 Severe sepsis with septic shock; J96.02 Acute respiratory failure with hypercapnia; E43 Unspecified severe protein-calorie malnutrition; J96.01 Acute respiratory failure with hypoxia; J18.9 Pneumonia, unspecified organism; I50.43 Acute on chronic combined systolic (congestive) and diastolic (congestive) heart failure; N17.0 Acute kidney failure with tubular necrosis; J44.1 Chronic obstructive pulmonary disease with (acute) exacerbation; I13.0 Hypertensive heart and chronic kidney disease with heart failure and stage 1 through stage 4 chronic kidney disease, or unspecified chronic kidney disease; J44.0 Chronic obstructive pulmonary disease with (acute) lower respiratory infection; I42.9 Cardiomyopathy, unspecified; J98.11 Atelectasis; F41.9 Anxiety disorder, unspecified; M19.90 Unspecified osteoarthritis, unspecified site; M10.9 Gout, unspecified; E78.5 Hyperlipidemia, unspecified; E03.9 Hypothyroidism, unspecified; I48.0 Paroxysmal atrial fibrillation; D53.9 Nutritional anemia, unspecified; E11.65 Type 2 diabetes mellitus with hyperglycemia; R31.9 Hematuria, unspecified; E66.9 Obesity, unspecified; N18.3 Chronic kidney disease, stage 3 (moderate); G47.33 Obstructive sleep apnea (adult) (pediatric); E78.00 Pure hypercholesterolemia, unspecified; I27.20 Pulmonary hypertension, unspecified; I25.10 Atherosclerotic heart disease of native coronary artery without angina pectoris; I44.7 Left bundle-branch block, unspecified; R33.9 Retention of urine, unspecified; R74.0 Nonspecific elevation of levels of transaminase and lactic acid dehydrogenase [LDH]; E11.51 Type 2 diabetes mellitus with diabetic peripheral angiopathy without gangrene; R00.1 Bradycardia, unspecified; K59.00 Constipation, unspecified; E11.22 Type 2 diabetes mellitus with diabetic chronic kidney disease; Z99.81 Dependence on supplemental oxygen; Z88.1 Allergy status to other antibiotic agents; Z88.0 Allergy status to penicillin; Z88.2 Allergy status to sulfonamides; Z82.49 Family history of ischemic heart disease and other diseases of the circulatory system; Z79.899 Other long term (current) drug therapy; Z79.4 Long term (current) use of insulin; Z90.2 Acquired absence of lung [part of]; Z68.30 Body mass index [BMI] 30.0-30.9, adult